=== PATIENT | male | born 1960 | race American Indian/Alaskan Native ===

== ENCOUNTER 2016-03-21 08:55 | Emergency (ER) | payer OTHER ==
[2016-03-21 09:05] VITALS: BP 145/73
--- NOTE | 2016-03-21 09:53 | Emergency Department Report ---
Chief Complaint: Abdominal Pain Stated Complaint: STOMACH FLUID/HERNIA Time Seen by Provider: 03/21/16 09:47 - HPI History of Present Illness: 55-year-old male with history of alcoholic cirrhosis presents today stating he would like to have his abdominal fluid removed. Patient denies chest pain, shortness of breath, abdominal pain, urinary symptoms. - ROS Review of Systems: Per HPI - Exam Vital Signs: Vital Signs 03/21/16 09:02 Temperature 98.2 F Pulse Rate 59 L Respiratory 20 Rate Blood Pressure 145/73 O2 Sat by Pulse 100 Oximetry Physical Exam: General: 55-year-old male in no acute distress. Well-developed, well-nourished. CV: Regular rate and rhythm. Lungs: Clear to auscultation bilaterally. Abdomen: No tenderness to palpation. Distended. No guarding or rebound tenderness. MSE screening note: Focused history and physical exam performed. Due to findings the following was ordered: ED Disposition for MSE Condition: Stable
[2016-03-21 10:27] LABS: Basophils % (Auto) 0.9 % (0.0-1.8); Eosinophils % (Auto) 4.1 % (0.0-4.3); Hematocrit 32.1 % (35.5-45.6); Hemoglobin 10.6 gm/dl (11.8-15.2); Mean Corpuscular HGB Conc 33 % (32-34); Mean Corpuscular Hemoglobin 29 pg (28-32); Mean Corpuscular Volume 89 fl (84-94); Platelet Count 132 K/mm3 (140-440); Red Blood Count 3.62 M/mm3 (3.65-5.03); Red Cell Distribution Width 15.9 % (13.2-15.2); White Blood Count 6.2 K/mm3 (4.5-11.0)
[2016-03-21 10:40] LABS: INR 1.26 (0.87-1.13)
[2016-03-21 10:41] LABS: Partial Thromboplastin Time 33.8 Sec. (24.2-36.6)
[2016-03-21 10:44] LABS: Alanine Aminotransferase 6 units/L (7-56); Albumin 3.3 g/dL (3.9-5); Albumin/Globulin Ratio 0.7 %; Alkaline Phosphatase 84 units/L (35-129); Amylase 91 units/L (27-131); Anion Gap 15 mmol/L; BUN/Creatinine Ratio 16.42; Bilirubin,Direct < 0.2 mg/dL (0-0.2); Bilirubin,Total 0.5 mg/dL (0.1-1.2); Blood Urea Nitrogen 23 mg/dL (9-20); Calcium 9.2 mg/dL (8.4-10.2); Carbon Dioxide 26 mmol/L (22-30); Chloride 100.4 mmol/L (98-107); Glucose 97 mg/dL (75-100); Lipase 42 units/L (13-60); Potassium 4.5 mmol/L (3.6-5.0); Sodium 137 mmol/L (137-145); Total Protein 8.3 g/dL (6.3-8.2)
== END 2016-03-21 20:30 | disposition left against medical advice (07) ==
LOC: ED 08:55
DX: R10.9 Unspecified abdominal pain (principal); Z53.21 Procedure and treatment not carried out due to patient leaving prior to being seen by health care provider
CPT/HCPCS: 36415; 80048; 80074; 82150; 82962; 83690; 85025; 85610; 85730

== ENCOUNTER 2016-03-22 08:53 | Emergency (ER) | payer OTHER ==
[2016-03-22 23:46] VITALS: BP 148/75
== END 2016-03-22 21:00 | disposition left against medical advice (07) ==
LOC: ED 08:53
DX: R10.9 Unspecified abdominal pain (principal); Z53.21 Procedure and treatment not carried out due to patient leaving prior to being seen by health care provider

== ENCOUNTER 2016-04-10 06:01 | Day surgery (SDC) | payer OTHER ==
--- NOTE | 2016-04-10 10:26 | Short Stay Summary ---
Short Stay Documentation Date of service: 04/10/16 - History Past Medical History: liver disease - Allergies and Medications Current Medications: Allergies No Known Allergies Allergy (Verified 06/06/14 15:35) Home Medications Medication Instructions Recorded Confirmed Last Taken Type Insulin Regular, Human [HumuLIN R] 1 dose SUB-Q ACHS #100 units 09/21/1504/10/16 06:00 Rx Nadolol [Corgard] 40 mg PO QDAY #30 tablet 09/21/15 04/10/16 04/10/16 06:00 Rx Pantoprazole [Protonix TAB] 40 mg PO QDAY #30 tablet 09/21/15 04/10/16 04/10/16 06:00 Rx Sodium Bicarbonate 650 mg PO TID #90 tablet 09/21/15 04/10/16 04/10/16 06:00 Rx Allopurinol [Zyloprim] 100 mg PO QDAY PRN 04/10/16 04/10/16 1 Week Ago History Colchicine [Colcrys] 0.6 mg PO DAILY PRN 04/10/16 04/10/16 1 Week Ago History Furosemide [Lasix TAB] 40 mg PO QDAY 04/10/16 04/10/16 04/10/16 06:00 History Spironolactone [Aldactone] 50 mg PO BID 04/10/16 04/10/16 04/10/16 05:00 History - Physical exam General appearance: mild distress Gastrointestinal: distended - Brief post op/procedure progress note Date of procedure: 04/10/16 Pre-op diagnosis: Ascites, liver disease Post-op diagnosis: same Procedure: US guided paracentesis Anesthesia: local Findings: 9 liters of yellow serous fluid removed Surgeon: NEIL COLEMAN Estimated blood loss: none Specimen disposition: discarded Condition: stable - Disposition Condition at discharge: Good Disposition: DISCHARGED TO HOME OR SELFCARE Short Stay Discharge Plan Follow up with: TIMOTHY LUGO MD [Primary Care Provider] - 7 Days
--- NOTE | 2016-04-10 10:30 | Ultrasound Report ---
ULTRASOUND-GUIDED PARACENTESIS INDICATION: Ascites, chronic liver disease. COMPARISON: 01/11/2016. FINDINGS: After explaining the risk and benefits to the patient, written informed consent obtained. Using ultrasound guidance, an appropriate skin site in the left lower quadrant marked. Skin prepped and draped in the usual sterile fashion. 1% Xylocaine used for local anesthesia. Using ultrasound guidance, a 5 Chadian Yueh catheter was placed into the fluid collection and 9000 cc of straw-colored fluid aspirated. No sample sent to laboratory. Catheter removed and hemostasis achieved. Patient tolerated the procedure well and left the radiology department in stable condition. CONCLUSION: Ultrasound guided paracentesis, as described above. IV albumin will be administered in the OPP[facility]. Dr. Joshua present for and performed the entire procedure. Thank you for the opportunity to participate in this patient's care.
[2016-04-10] MEDS ORDERED: ALBURX 25% (ALBUMIN) IV ONE ×4 (10:34→12:00)
[2016-04-10 12:51] VITALS: BP 124/59
== END 2016-04-10 12:50 | disposition home or self-care (01) ==
LOC: OPU 06:01 → EDSTATUS 07:30 → OPU 12:50
PROVIDERS: ATTEND Internal Medicine Gastroenterology
DX: R18.8 Other ascites (principal); K76.9 Liver disease, unspecified; D64.9 Anemia, unspecified; F10.21 Alcohol dependence, in remission; Z79.4 Long term (current) use of insulin
CPT/HCPCS: 49083; 82962; 96365; 96366; P9047

== ENCOUNTER 2016-09-25 07:53 | Day surgery (SDC) | payer OTHER ==
[2016-09-25 09:29] LABS: INR 1.24 (0.87-1.13)
[2016-09-25 09:30] LABS: Partial Thromboplastin Time 30.4 Sec. (24.2-36.6)
--- NOTE | 2016-09-25 10:54 | Ultrasound Report ---
Ultrasound guided paracentesis: Distended abdomen. Imaging of the abdomen demonstrated a moderate volume of ascites. An optimum approach site was identified in the right flank. The skin was marked, cleansed, and draped. A small skin misael was made through which a 5 Belarusian Yueh catheter was placed. A total of 2 L of straw-colored fluid was excessively removed. There are no apparent complications.
--- NOTE | 2016-09-25 10:58 | History and Physical Report ---
History of Present Illness Date of examination: 09/25/16 Chief complaint: distended abdomen Medications and Allergies Allergies Allergy/AdvReac Type Severity Reaction Status Date / Time No Known Allergies Allergy Verified 06/06/14 15:35 Home Medications Medication Instructions Recorded Confirmed Last Taken Type Insulin Regular, Human [HumuLIN R] 1 dose SUB-Q ACHS #100 units 09/21/1509/24/16 Rx Nadolol [Corgard] 40 mg PO QDAY #30 tablet 09/21/15 09/25/16 09/25/16 Rx Pantoprazole [Protonix TAB] 40 mg PO QDAY #30 tablet 09/21/15 09/25/16 09/24/16 Rx Sodium Bicarbonate 650 mg PO TID #90 tablet 09/21/15 09/25/16 09/25/16 Rx Allopurinol [Zyloprim] 100 mg PO QDAY PRN 04/10/16 09/25/16 09/24/16 History Colchicine [Colcrys] 0.6 mg PO DAILY PRN 04/10/16 09/25/16 09/24/16 History Furosemide [Lasix TAB] 40 mg PO QDAY 04/10/16 09/25/16 09/24/16 History Spironolactone [Aldactone] 50 mg PO BID 04/10/16 09/25/16 09/24/16 History Exam Vital Signs Temp Pulse Resp BP Pulse Ox 98.8 F 55 L 18 119/65 99 09/25/16 08:52 09/25/16 08:52 09/25/16 08:52 09/25/16 08:52 09/25/16 08:52
[2016-09-25 10:59] VITALS: BP 116/67
--- NOTE | 2016-09-25 10:59 | Procedure Note ---
Date of procedure: 09/25/16 Pre-op diagnosis: ascites Post-op diagnosis: same Procedure: paracentesis Anesthesia: local Surgeon: ULI COELLO Estimated blood loss: none Pathology: none Specimen disposition: discarded Condition: stable Disposition: observation
== END 2016-09-25 11:00 | disposition home or self-care (01) ==
LOC: CATHLABREC 07:53 → EDSTATUS 09:00 → EDBD 09:00 → CATHLABREC 11:00
PROVIDERS: ATTEND Internal Medicine Gastroenterology
DX: R18.8 Other ascites (principal); E11.9 Type 2 diabetes mellitus without complications; Z79.4 Long term (current) use of insulin
CPT/HCPCS: 36415; 49083; 85610; 85730

== ENCOUNTER 2017-04-17 08:45 | Day surgery (SDC) | payer OTHER ==
[2017-04-17 10:04] LABS: INR 1.12 (0.87-1.13)
[2017-04-17 10:06] LABS: Partial Thromboplastin Time 29.3 Sec. (24.2-36.6)
[2017-04-17 11:48] VITALS: BP 126/67
--- NOTE | 2017-04-17 11:50 | Ultrasound Report ---
ULTRASOUND PARACENTESIS History: Ascites. Description of procedure: Informed consent was obtained. Sterile technique was utilized. 1% lidocaine for skin anesthesia. Using ultrasound guidance, a 5 English centesis needle was advanced to the right lower quadrant peritoneal space. There was spontaneous return of clear yellow fluid. 1.4 L of fluid was aspirated. No complications. Impression: Successful ultrasound-guided paracentesis.
[2017-04-17] MEDS ORDERED: ALBURX 25% (ALBUMIN) IV PRN (11:58)
--- NOTE | 2017-04-17 11:58 | Short Stay Summary ---
Short Stay Documentation Date of service: 04/17/17 - History Principal diagnosis: ascites H&P: obtained from office - Allergies and Medications Current Medications: Allergies No Known Allergies Allergy (Verified 06/06/14 15:35) Home Medications Medication Instructions Recorded Confirmed Last Taken Type Nadolol [Corgard] 40 mg PO QDAY #30 tablet 09/21/15 04/17/17 04/17/17 Rx 40mg Pantoprazole [Protonix TAB] 40 mg PO QDAY #30 tablet 09/21/15 04/17/17 04/16/17 Rx 40mg Sodium Bicarbonate 650 mg PO TID #90 tablet 09/21/15 04/17/17 04/16/17 Rx 650mg Colchicine [Colcrys] 0.6 mg PO DAILY PRN 04/10/16 04/17/17 09/24/16 History Furosemide [Lasix TAB] 40 mg PO QDAY 04/10/16 04/17/17 04/16/17 History 40mg Spironolactone [Aldactone] 50 mg PO BID 04/10/16 04/17/17 04/16/17 History 50mg - Physical exam General appearance: no acute distress Gastrointestinal: distended - Brief post op/procedure progress note Date of procedure: 04/17/17 Pre-op diagnosis: ascites Post-op diagnosis: same Procedure: US paracentesis Anesthesia: local Surgeon: OLGA WALKER Estimated blood loss: none Pathology: none Specimen disposition: discarded Condition: stable - Disposition Condition at discharge: Good Disposition: DC-01 TO HOME OR SELFCARE Short Stay Discharge Plan Follow up with: TIMOTHY LUGO MD [Primary Care Provider] - 7 Days
== END 2017-04-17 12:39 | disposition home or self-care (01) ==
LOC: CATHLABREC 08:45 → EDBD 09:00 → EDSTATUS 09:00 → CATHLABREC 12:39
PROVIDERS: ATTEND Internal Medicine Gastroenterology
DX: R18.8 Other ascites (principal); Z79.899 Other long term (current) drug therapy
CPT/HCPCS: 36415; 49083; 85610; 85730

== ENCOUNTER 2019-02-03 07:48 | Day surgery (SDC) | payer MEDICARE, OTHER ==
[2019-02-03 08:41] LABS: INR 1.31 (0.87-1.13)
[2019-02-03 08:42] LABS: Partial Thromboplastin Time 32.1 Sec. (24.2-36.6)
[2019-02-03] MEDS ORDERED: ALBUMIN HUMAN 25% (25 GM/100 ML) INJ IV PRN (11:11)
--- NOTE | 2019-02-03 11:13 | Procedure Note ---
Date of procedure: 02/03/19 Pre-op diagnosis: Ascites Post-op diagnosis: same Procedure: Ultrasound-guided paracentesis Findings: See radiology report. Anesthesia: local Surgeon: NAINA PALACIOS Estimated blood loss: none Pathology: none Specimen disposition: discarded Condition: stable Disposition: same day
--- NOTE | 2019-02-03 11:44 | Ultrasound Report ---
Ultrasound-guided paracentesis HISTORY: ascites. Acute dyspnea PROCEDURE: The risks (including but not limited to bleeding, infection, and bowel injury) and benefi ts were explained to the patient and informed consent was obtained. A time out procedure was perform ed. Ultrasound was used to evaluate the abdomen and locate the largest ascites fluid pocket. Once the sk in was marked, the procedure site was prepped and draped in the usual sterile fashion and lidocaine w as used for local anesthesia. A skin misael was made and a 6-Syrian paracentesis catheter was placed. The patient was monitored closely throughout the procedure, and a total of 4800 mL of straw-colored fluid was aspirated. The patient tolerated the procedure well with no complications. IMPRESSION: Successful paracentesis as above with a total of 4800 mL of straw-colored fluid aspirated . Signer Name: Roberto Carlos Finley MD Signed: 02/03/2019 11:39 AM Workstation Name: [id number]
[2019-02-03 12:18] VITALS: BP 102/53
== END 2019-02-03 12:29 | disposition home or self-care (01) ==
LOC: CATHLABREC 07:48 → EDSTATUS 09:00 → CATHLABREC 12:29
PROVIDERS: ATTEND Internal Medicine Gastroenterology
DX: K70.31 Alcoholic cirrhosis of liver with ascites (principal); D64.9 Anemia, unspecified; I10 Essential (primary) hypertension; E66.9 Obesity, unspecified; M19.90 Unspecified osteoarthritis, unspecified site; E11.9 Type 2 diabetes mellitus without complications; Z72.89 Other problems related to lifestyle; Z98.890 Other specified postprocedural states; Z79.899 Other long term (current) drug therapy; Z68.37 Body mass index [BMI] 37.0-37.9, adult; Z83.49 Family history of other endocrine, nutritional and metabolic diseases
CPT/HCPCS: 36415; 49083; 85610; 85730

== ENCOUNTER 2020-06-09 07:44 | Outpatient (CLI) | payer MEDICARE, OTHER ==
[2020-06-09 09:01] LABS: INR 1.36 (0.87-1.13)
[2020-06-09] MEDS ORDERED: ALBUMIN HUMAN 25% (25 GM/100 ML) INJ IV NR (10:30)
[2020-06-09 11:59] VITALS: BP 111/58
--- NOTE | 2020-06-09 14:12 | Ultrasound Report ---
ULTRASOUND-GUIDED PARACENTESIS INDICATION / CLINICAL INFORMATION: R18.8 K74.68. Ascites PROCEDURE: The risks (including but not limited to bleeding, infection, and bowel injury) and benefits were expl ained to the patient and signed, informed consent was obtained. A time out procedure was performed. Ultrasound was used to evaluate the abdomen and locate the largest ascites fluid pocket. Once the sk in was marked, the procedure site was prepped and draped in the usual sterile fashion and lidocaine w as used for local anesthesia. A skin misael was made and a 6-Czech paracentesis catheter was placed. The patient was monitored closely throughout the procedure, and a total of 10 mL of clear yellow fl uid was aspirated. No labs were ordered on the fluid. No sample submitted to lab. The patient tolerated the procedure well with no complications. IMPRESSION: 1. Successful ultrasound-guided paracentesis. Patient was given albumin after procedure. Signer Name: Reynaldo Cano MD Signed: 06/09/2020 12:13 PM Workstation Name: [id number]
== END 2020-06-09 11:30 | disposition home or self-care (01) ==
LOC: CATHLABREC 07:44
PROVIDERS: ATTEND Internal Medicine Gastroenterology
DX: K70.31 Alcoholic cirrhosis of liver with ascites (principal); I10 Essential (primary) hypertension; E66.9 Obesity, unspecified; M19.90 Unspecified osteoarthritis, unspecified site; E11.9 Type 2 diabetes mellitus without complications; D64.9 Anemia, unspecified; Z72.89 Other problems related to lifestyle; Z79.899 Other long term (current) drug therapy; Z68.31 Body mass index [BMI] 31.0-31.9, adult; Z82.49 Family history of ischemic heart disease and other diseases of the circulatory system
CPT/HCPCS: 36415; 49083; 85610; P9047

== ENCOUNTER 2020-06-17 09:58 | Inpatient (IN) | payer MEDICARE, OTHER ==
--- NOTE | 2020-06-17 10:34 | Emergency Department Report ---
Blank Doc - Documentation Documentation: 57-year-old male that presents with generalized weakness, bilateral leg swelli ng, abdominal swelling times several days. 1- This initial assessment/diagnostic orders/clinical plan/ treatment(s) is/are subject to change based on pt's health status, clinical progression and re- assessment by fellow clinical providers in the ED. Further treatment and workup at subsequent clinical provers discretion. Patient/guardians urged not to elope from ED as their condition may be serious if not clinically assessed and managed. 2-labs 3-EKG
--- NOTE | 2020-06-17 11:28 | XRay Report ---
CHEST 2 VIEWS INDICATION: Chest Pain. COMPARISON: None FINDINGS: Support devices: None. Heart: Within normal limits. Lungs/pleura: No acute air space or interstitial disease. No pneumothorax. Additional findings: None. IMPRESSION: No acute findings. Signer Name: Joe Shannon Jr, MD Signed: 06/17/2020 11:24 AM Workstation Name: [id number]
[2020-06-17 12:14] LABS: INR 1.33 (0.87-1.13)
[2020-06-17 12:15] LABS: Partial Thromboplastin Time 32.2 Sec. (24.2-36.6)
[2020-06-17 12:41] LABS: Basophils # (Auto) 0.1 K/mm3 (0.0-0.1); Basophils % (Auto) 0.7 % (0.0-1.8); Eosinophils # (Auto) 0.2 K/mm3 (0.0-0.4); Eosinophils % (Auto) 1.9 % (0.0-4.3); Hematocrit 30.2 % (35.5-45.6); Hemoglobin 10.5 gm/dl (11.8-15.2); Lymphocytes # (Auto) 1.2 K/mm3 (1.2-5.4); Lymphocytes % (Auto) 12.7 % (13.4-35.0); Mean Corpuscular HGB Conc 35 % (32-34); Mean Corpuscular Volume 116 fl (84-94); Monocytes # (Auto) 0.8 K/mm3 (0.0-0.8); Monocytes % (Auto) 8.5 % (0.0-7.3); Platelet Count 155 K/mm3 (140-440); Red Cell Distribution Width 14.1 % (13.2-15.2)
[2020-06-17 12:49] LABS: Albumin 2.4 g/dL (3.9-5); Calcium 8.7 mg/dL (8.4-10.2)
--- NOTE | 2020-06-17 14:27 | Cat Scan Report ---
CT HEAD WITHOUT CONTRAST INDICATION / CLINICAL INFORMATION: multiple falls. TECHNIQUE: Axial imaging performed from the skull apex through the skull base without the use of cont rast. Sagittal and coronal reformatted images. All CT scans at this location are performed using CT dose reduction for ALARA by means of automated exposure control. COMPARISON: None available. FINDINGS: CEREBRAL PARENCHYMA: No significant abnormality. No acute territorial infarct. HEMORRHAGE: None. EXTRA-AXIAL SPACES: Normal in size and morphology for the patient's age. VENTRICULAR SYSTEM: Normal in size and morphology for the patient's age. MIDLINE SHIFT OR HERNIATION: None. CEREBELLUM / BRAINSTEM: No significant abnormality. CALVARIUM: No significant abnormality. ORBITS: Normal as visualized. PARANASAL SINUSES / MASTOID AIR CELLS: Normal as visualized. SOFT TISSUES of HEAD: No significant abnormality. ADDITIONAL FINDINGS: None. IMPRESSION: No acute intracranial abnormality. Signer Name: Joe Shannon Jr, MD Signed: 06/17/2020 2:22 PM Workstation Name: [id number]
--- NOTE | 2020-06-17 14:35 | Emergency Department Report ---
- General Chief complaint: Weakness Stated complaint: GENERAL WEAKNESS Time Seen by Provider: 06/17/20 10:26 Source: patient, EMS Mode of arrival: Wheelchair Limitations: Physical Limitation - History of Present Illness Initial comments: 59-year-old male, history of liver cirrhosis, chronic kidney disease, presents to ED with generalized weakness and multiple falls. Patient states over the last 1 week he has fallen 3 times. States he feels like his legs just give out and then he falls. Patient states that since his last fall 3 days ago, he has not been able to get out of bed and walk because he feels so weak. States he is unable to walk to the bathroom. States his has been giving him a urinal to use and puts a diaper in the bed when he has to have a bowel movement. Patient denies any headache or back pain. He denies any fever. Patient states he is currently having some diarrhea, denies any abdominal pain, nausea, or vomiting. Patient states prior to 1 week ago, he had some baseline weakness present, however, it is worse now. Patient states he has not yet received his Covid vaccine. MD Complaint: generalized weakness -: week(s) (1) Severity: moderate Consistency: constant Improves with: none Worsens with: none Associated Symptoms: denies: chest pain, fever/chills, nausea/vomiting, shortness of breath, syncope - Related Data Home Medications Medication Instructions Recorded Confirmed Last Taken Furosemide [Lasix TAB] 40 mg PO QDAY 04/10/16 06/09/20 06/08/20 Spironolactone [Aldactone] 50 mg PO BID 04/10/16 06/09/20 06/08/20 allopurinoL [Zyloprim] 100 mg PO DAILY PRN 02/03/19 06/09/20 01/08/19 100 mg Iron Fum,Ps/Folic/Bcomp,C No.9 1 each PO DAILY 06/09/20 06/09/20 06/08/20 [Integra Plus Capsule] Previous Rx's Medication Instructions Recorded Last Taken Type Pantoprazole [Protonix TAB] 40 mg PO QDAY #30 tablet 09/21/15 06/08/20 Rx Sodium Bicarbonate 650 mg PO TID #90 tablet 09/21/15 06/08/20 Rx nadoloL [Corgard] 40 mg PO QDAY #30 tablet 09/21/15 06/08/20 Rx Allergies Allergy/AdvReac Type Severity Reaction Status Date / Time No Known Allergies Allergy Verified 06/06/14 15:35 ED Review of Systems ROS: Stated complaint: GENERAL WEAKNESS Other details as noted in HPI Comment: All other systems reviewed and negative Constitutional: denies: fever Respiratory: denies: shortness of breath Cardiovascular: denies: chest pain Gastrointestinal: diarrhea. denies: abdominal pain, nausea, vomiting Musculoskeletal: denies: back pain Neurological: weakness. denies: headache, numbness, paresthesias ED Past Medical Hx - Past Medical History Previous Medical History?: Yes Hx Hypertension: Yes () Hx Diabetes: Yes Hx Liver Disease: Yes (Cirrhosis) Hx Renal Disease: Yes (insufficiency, chronic) Hx Arthritis: Yes Additional medical history: elevated liver function - Surgical History Past Surgical History?: Yes Additional Surgical History: Left hand surgery - Social History Smoking Status: Never Smoker - Medications Home Medications: Home Medications Medication Instructions Recorded Confirmed Last Taken Type Pantoprazole [Protonix TAB] 40 mg PO QDAY #30 tablet 09/21/15 06/09/20 06/08/20 Rx Sodium Bicarbonate 650 mg PO TID #90 tablet 09/21/15 06/09/20 06/08/20 Rx nadoloL [Corgard] 40 mg PO QDAY #30 tablet 09/21/15 06/09/20 06/08/20 Rx Furosemide [Lasix TAB] 40 mg PO QDAY 04/10/16 06/09/20 06/08/20 History Spironolactone [Aldactone] 50 mg PO BID 04/10/16 06/09/20 06/08/20 History allopurinoL [Zyloprim] 100 mg PO DAILY PRN 02/03/19 06/09/20 01/08/19 History 100 mg Iron Fum,Ps/Folic/Bcomp,C No.9 1 each PO DAILY 06/09/20 06/09/20 06/08/20 History [Integra Plus Capsule] ED Physical Exam - General Limitations: Physical Limitation General appearance: alert, in no apparent distress - Head Head exam: Present: atraumatic, normocephalic - Eye Eye exam: Present: normal appearance, EOMI - ENT ENT exam: Present: mucous membranes moist - Neck Neck exam: Present: normal inspection - Respiratory Respiratory exam: Present: normal lung sounds bilaterally. Absent: respiratory distress - Cardiovascular Cardiovascular Exam: Present: normal rhythm, bradycardia - GI/Abdominal GI/Abdominal exam: Present: soft, distended. Absent: tenderness - Back Exam Back exam: Absent: tenderness, vertebral tenderness - Neurological Exam Neurological exam: Present: alert, oriented X3, CN II-XII intact, motor sensory deficit (strength 3/5 bilateral lower extremities, sensation intact) - Psychiatric Psychiatric exam: Present: normal affect, normal mood - Skin Skin exam: Present: warm, dry, intact, normal color ED Course Vital Signs 06/17/20 06/17/20 10:14 13:45 Temperature 98.6 F Pulse Rate 57 L 59 L Respiratory 20 16 Rate Blood Pressure 114/69 111/65 [Left] O2 Sat by Pulse 100 99 Oximetry ED Medical Decision Making - Lab Data Result diagrams: 06/17/20 11:05 06/17/20 11:05 - Radiology Data Radiology results: report reviewed, image reviewed - Medical Decision Making 59-year-old male presents to ED with multiple falls over the last week, now with generalized weakness and unable to get out of bed for the last [address] head shows no acute findings. Labs are unremarkable except for some acute renal insufficiency. Patient reports that he has been unable to ambulate at home. Patient will be admitted to hospitalist, Dr. Mayer, for further management. - Differential Diagnosis Intracranial injury, CVA, dehydration Critical care attestation.: If time is entered above; I have spent that time in minutes in the direct care of this critically ill patient, excluding procedure time. ED Disposition Clinical Impression: Multiple falls, Acute on chronic renal insufficiency, Weakness Disposition: OP ADMIT IP TO THIS HOSP Is pt being admited?: Yes Condition: Stable Time of Disposition: 15:01
[2020-06-17] MEDS ORDERED: ONDANSETRON 4 MG/2 ML INJ IV PRN (15:20)
[2020-06-17] MEDS ORDERED: ALBUTEROL 2.5 MG/3 ML NEBU IH PRN (15:20)
--- NOTE | 2020-06-17 19:28 | History and Physical Report ---
History of Present Illness Date of admission: 06/17/20 15:20 Chief complaint: I feel weak and I cannot walk anymore History of present illness: 59 YO Male with liver cirrhosis complicated by Ascites, chronic kidney disease presents to ED for evaluation. Patient reports "I feel weak and I keep falling". Patient states that he has experienced progressive muscular weakness over the past 3 weeks with worsening symptoms over the same timeframe. Patient knowledges increased bedbound status resulting in worsening weakness. Patient reports that he is no longer able to walk independently. Patient reports multiple falls over the past 1 week. EMS was notified and upon arrival the patient was found to be in distress and subsequently transported to [facility] for further care and evaluation of the aforementioned symptoms. The patient was seen and evaluated in the emergency department. All lab and imaging studies reviewed. The patient was found to have debility complicated by multiple falls. The patient was also found to have acute kidney injury. Patient placed in observation status and admitted to medical floor. Patient denies fever, chills, chest pain, palpitation, productive cough, skin rash, recent ill contacts, or known exposure to COVID-19. Prior admission on 09/17/2015 reviewed. All medication listed at time of admission has been reconciled. Advanced care planning conducted in ED. Past History Past Medical History: liver disease, renal failure, other (See HPI) Past Surgical History: Other (Left hand surgery) Social history: . denies: smoking, prescription drug abuse Family history: hypertension Medications and Allergies Allergies Allergy/AdvReac Type Severity Reaction Status Date / Time No Known Allergies Allergy Verified 06/06/14 15:35 Home Medications Medication Instructions Recorded Confirmed Last Taken Type Pantoprazole [Protonix TAB] 40 mg PO QDAY #30 tablet 09/21/15 06/09/20 06/08/20 Rx Sodium Bicarbonate 650 mg PO TID #90 tablet 09/21/15 06/09/20 06/08/20 Rx nadoloL [Corgard] 40 mg PO QDAY #30 tablet 09/21/15 06/09/20 06/08/20 Rx Furosemide [Lasix TAB] 40 mg PO QDAY 04/10/16 06/09/20 06/08/20 History Spironolactone [Aldactone] 50 mg PO BID 04/10/16 06/09/20 06/08/20 History allopurinoL [Zyloprim] 100 mg PO DAILY PRN 02/03/19 06/09/20 01/08/19 History 100 mg Iron Fum,Ps/Folic/Bcomp,C No.9 1 each PO DAILY 06/09/20 06/09/20 06/08/20 History [Integra Plus Capsule] Active Meds: Active Medications Acetaminophen (Acetaminophen 325 Mg Tab) 650 mg PO Q4H PRN PRN Reason: Pain MILD(1-3)/Fever >100.5/SHORT Albuterol (Albuterol 2.5 Mg/3 Ml Nebu) 2.5 mg IH Q3HRT PRN PRN Reason: Shortness Of Breath Allopurinol (Allopurinol 100 Mg Tab) 100 mg PO DAILY ONELIA Furosemide (Furosemide 40 Mg Tab) 40 mg PO DAILY@0600 [facility] Multivitamins/Iron (Fe Fumarate/Fa/Mv, Min Comb#15 Cap (Hemocyte Plus)) 1 each PO QDAY [facility] Nadolol (Nadolol 20 Mg Tab) 40 mg PO QDAY [facility] Ondansetron HCl (Ondansetron 4 Mg/2 Ml Inj) 4 mg IV Q8H PRN PRN Reason: Nausea And Vomiting Pantoprazole Sodium (Pantoprazole 40 Mg Tab) 40 mg PO QDAC [facility] Sodium Bicarbonate (Sodium Bicarbonate 650 Mg Tab) 650 mg PO TID [facility] Sodium Chloride (Sodium Chloride 0.9% 10 Ml Flush Syringe) 10 ml IV BID [facility] Sodium Chloride (Sodium Chloride 0.9% 10 Ml Flush Syringe) 10 ml IV PRN PRN PRN Reason: LINE FLUSH Spironolactone (Spironolactone 25 Mg Tab) 50 mg PO BID [facility] Review of Systems Constitutional: weakness, no weight loss, no weight gain, no fever, no chills Ears, nose, mouth and throat: no ear pain, no ear discharge, no tinnitis, no decreased hearing, no nose pain, no nasal congestion, no sinus pain Cardiovascular: no chest pain, no rapid/irregular heart beat, no syncope, no lightheadedness Respiratory: no cough, no cough with sputum, no excessive sputum, no hemoptysis, no shortness of breath Gastrointestinal: no abdominal pain, no vomiting, no diarrhea, no change in bowel habits, no hematemesis Genitourinary Male: no hematuria, no flank pain, no discharge, no urinary frequency, no urinary hesitancy Rectal: no pain, no incontinence, no bleeding Musculoskeletal: no neck stiffness, no neck pain, no arm numbness/tingling, no low back pain, no shooting leg pain Integumentary: no rash, no pruritis, no redness, no sores, no wounds Neurological: no head injury, no transient paralysis, no paralysis, no weakness, no parathesias, no tingling Psychiatric: no anxiety, no memory loss, no change in sleep habits, no sleep disturbances, no hypersomnia, no change in libido, no disorientation Endocrine: no cold intolerance, no heat intolerance, no excessive thirst, no excessive sweating Hematologic/Lymphatic: no easy bruising, no easy bleeding Allergic/Immunologic: no urticaria Exam - Constitutional Vitals: Temp Pulse Resp BP Pulse Ox 98.6 F 59 L 16 111/65 99 06/17/20 10:14 06/17/20 13:45 06/17/20 13:45 06/17/20 13:45 06/17/20 13:45 General appearance: Present: mild distress - EENT Eyes: Present: PERRL ENT: hearing intact, clear oral mucosa - Neck Neck: Present: supple, normal ROM - Respiratory Respiratory effort: normal Respiratory: bilateral: CTA - Cardiovascular Heart Sounds: Present: S1 & S2. Absent: rub, click - Extremities Extremities: pulses symmetrical, No edema Peripheral Pulses: within normal limits - Abdominal General gastrointestinal: Present: soft, non-tender, distended, normal bowel sounds Male genitourinary: Present: normal - Integumentary Integumentary: Present: clear, warm, dry - Musculoskeletal Musculoskeletal: generalized weakness - Psychiatric Psychiatric: appropriate mood/affect, intact judgment & insight - Neurologic Neurologic: CNII-XII intact, no focal deficits, moves all extremities, no gait normal HEART Score - HEART Score Troponin: Troponin T 0.017 ng/mL (0.00-0.029) 06/17/20 13:02 Results - Labs CBC & Chem 7: 06/17/20 11:05 06/17/20 11:05 Labs: Abnormal lab results 06/17/20 06/17/20 06/17/20 Range/Units 11:05 11:05 11:05 RBC 2.60 L (3.65-5.03) M/mm3 Hgb 10.5 L (11.8-15.2) gm/dl Hct 30.2 L (35.5-45.6) % MCV 116 H (84-94) fl MCH 40 H (28-32) pg MCHC 35 H (32-34) % Lymph % (Auto) 12.7 L (13.4-35.0) % [place] % (Auto) 8.5 H (0.0-7.3) % Seg Neutrophils % 76.2 H (40.0-70.0) % PT 16.5 H (12.2-14.9) Sec. INR 1.33 H (0.87-1.13) Sodium 134 L (137-145) mmol/L Chloride 97.8 L (98-107) mmol/L BUN 26 H (9-20) mg/dL Creatinine 1.8 H (0.8-1.3) mg/dL Glucose 115 H (75-100) mg/dL Magnesium (1.7-2.3) mg/dL Total Bilirubin 2.80 H (0.1-1.2) mg/dL Albumin 2.4 L (3.9-5) g/dL 06/17/20 Range/Units 11:05 RBC (3.65-5.03) M/mm3 Hgb (11.8-15.2) gm/dl Hct (35.5-45.6) % MCV (84-94) fl MCH (28-32) pg MCHC (32-34) % Lymph % (Auto) (13.4-35.0) % [place] % (Auto) (0.0-7.3) % Seg Neutrophils % (40.0-70.0) % PT (12.2-14.9) Sec. INR (0.87-1.13) Sodium (137-145) mmol/L Chloride (98-107) mmol/L BUN (9-20) mg/dL Creatinine (0.8-1.3) mg/dL Glucose (75-100) mg/dL Magnesium 1.50 L (1.7-2.3) mg/dL Total Bilirubin (0.1-1.2) mg/dL Albumin (3.9-5) g/dL Assessment and Plan - Patient Problems (1) Acute on chronic renal insufficiency Current Visit: Yes Status: Acute Plan to address problem: Supportive care, continue medical management, encourage free water intake, monitor urine output every shift, (2) Debility Current Visit: Yes Status: Acute Plan to address problem: Physical therapy consulted, supportive care. (3) Chronic liver disease Current Visit: Yes Status: Acute Plan to address problem: Supportive care, continue medical management. (4) Ascites Current Visit: Yes Status: Acute Qualifiers: Ascites type: other type Qualified Code(s): R18.8 - Other ascites Plan to address problem: Supportive care, outpatient therapeutic paracentesis. (5) DVT prophylaxis Current Visit: Yes Status: Acute Plan to address problem: SCD to bilateral lower extremities while in bed. (6) Advance care planning Current Visit: Yes Status: Acute Plan to address problem: Disease education conducted, care plan discussed, diagnoses discussed, prognosis discussed, care plan discussed, patient knowledges understanding agree with care plan, +30 minutes. Patient care plan discussed with patient daughter. Patient daughter acknowledges understanding and agreement with care plan.
[2020-06-17] MEDS: SPIRONOLACTONE 25 MG TAB PO SCH (22:59)
[2020-06-17] MEDS: SODIUM BICARBONATE 650 MG TAB PO SCH (22:59)
[2020-06-18] MEDS: FUROSEMIDE 40 MG TAB PO SCH (05:27)
[2020-06-18 07:03] LABS: Bilirubin,Urine NEG (Negative); Blood,Urine NEG (Negative); Color,Urine Amber (Yellow); Mucus,Urine FEW /HPF; Protein,Urine <15 mg/dL mg/dL (Negative)
[2020-06-18] MEDS: allopurinoL 100 MG TAB PO SCH (09:28)
[2020-06-18] MEDS: PANTOPRAZOLE 40 MG TAB PO SCH (09:28)
[2020-06-18] MEDS: SODIUM BICARBONATE 650 MG TAB PO SCH ×3 (09:28→21:26)
[2020-06-18] MEDS: SPIRONOLACTONE 25 MG TAB PO SCH ×2 (09:32→23:00)
[2020-06-18] MEDS: NADOLOL 20 MG TAB PO SCH (09:33)
[2020-06-18] MEDS: FE FUMARATE/FA/MV, MIN COMB#15 CAP (HEMOCYTE PLUS) PO SCH (09:54)
[2020-06-18] MEDS ORDERED: NON-FORMULARY EACH (Iron Fum,Ps/Folic/Bcomp,C No.9 [Integra Plus Capsule] 1 EACH Capsule) PO SCH (10:00)
[2020-06-18] MEDS ORDERED: NADOLOL 40 MG PO SCH (10:00)
--- NOTE | 2020-06-18 12:35 | Progress Note ---
History Interval history: Acute on chronic renal insufficiency Supportive care, continue medical management, encourage free water intake, monitor urine output every shift, Debility Physical therapy consulted, supportive care. Chronic liver disease Supportive care, continue medical management. Ascites Supportive care, outpatient therapeutic paracentesis. DVT prophylaxis SCD to bilateral lower extremities while in bed. 06/18. I suspect pt has more chric renal dz and is likely at baseline. Creatinine was 1.4 in 2017. Check renal US. PT eval. Anticipate d/c based on results Hospitalist Physical - Constitutional Vitals: Temp Pulse Resp BP Pulse Ox 99.1 F 61 20 100/51 99 06/18/20 06:23 06/18/20 09:33 06/18/20 06:23 06/18/20 09:33 06/18/20 08:59 General appearance: Present: mild distress HEART Score - HEART Score Troponin: Troponin T 0.017 ng/mL (0.00-0.029) 06/17/20 13:02 Results - Labs CBC & Chem 7: 06/17/20 11:05 06/18/20 04:41 Labs: Laboratory Last Values WBC 9.6 K/mm3 (4.5-11.0) 06/17/20 11:05 RBC 2.60 M/mm3 (3.65-5.03) L 06/17/20 11:05 Hgb 10.5 gm/dl (11.8-15.2) L 06/17/20 11:05 Hct 30.2 % (35.5-45.6) L 06/17/20 11:05 MCV 116 fl (84-94) H 06/17/20 11:05 MCH 40 pg (28-32) H 06/17/20 11:05 MCHC 35 % (32-34) H 06/17/20 11:05 RDW 14.1 % (13.2-15.2) 06/17/20 11:05 Plt Count 155 K/mm3 (140-440) 06/17/20 11:05 Lymph % (Auto) 12.7 % (13.4-35.0) L 06/17/20 11:05 [place] % (Auto) 8.5 % (0.0-7.3) H 06/17/20 11:05 Eos % (Auto) 1.9 % (0.0-4.3) 06/17/20 11:05 Baso % (Auto) 0.7 % (0.0-1.8) 06/17/20 11:05 Lymph # (Auto) 1.2 K/mm3 (1.2-5.4) 06/17/20 11:05 [place] # (Auto) 0.8 K/mm3 (0.0-0.8) 06/17/20 11:05 Eos # (Auto) 0.2 K/mm3 (0.0-0.4) 06/17/20 11:05 Baso # (Auto) 0.1 K/mm3 (0.0-0.1) 06/17/20 11:05 Seg Neutrophils % 76.2 % (40.0-70.0) H 06/17/20 11:05 Seg Neutrophils # 7.3 K/mm3 (1.8-7.7) 06/17/20 11:05 PT 16.5 Sec. (12.2-14.9) H 06/17/20 11:05 INR 1.33 (0.87-1.13) H 06/17/20 11:05 APTT 32.2 Sec. (24.2-36.6) 06/17/20 11:05 Sodium 134 mmol/L (137-145) L 06/18/20 04:41 Potassium 3.9 mmol/L (3.6-5.0) 06/18/20 04:41 Chloride 98.8 mmol/L (98-107) 06/18/20 04:41 Carbon Dioxide 27 mmol/L (22-30) 06/18/20 04:41 Anion Gap 12 mmol/L 06/18/20 04:41 BUN 27 mg/dL (9-20) H 06/18/20 04:41 Creatinine 2.0 mg/dL (0.8-1.3) H 06/18/20 04:41 Estimated GFR 41 ml/min 06/18/20 04:41 BUN/Creatinine Ratio 14 % 06/18/20 04:41 Glucose 88 mg/dL (75-100) 06/18/20 04:41 POC Glucose 93 mg/dL (70-105) 06/17/20 22:41 Calcium 8.0 mg/dL (8.4-10.2) L 06/18/20 04:41 Magnesium 1.50 mg/dL (1.7-2.3) L 06/17/20 11:05 Total Bilirubin 2.80 mg/dL (0.1-1.2) H 06/17/20 11:05 AST 36 units/L (5-40) 06/17/20 11:05 ALT 11 units/L (7-56) 06/17/20 11:05 Alkaline Phosphatase 107 units/L (35-129) 06/17/20 11:05 Troponin T 0.017 ng/mL (0.00-0.029) 06/17/20 13:02 NT-Pro-B Natriuret Pep 635.9 pg/mL (0-900) 06/17/20 11:05 Total Protein 8.0 g/dL (6.3-8.2) 06/17/20 11:05 Albumin 2.4 g/dL (3.9-5) L 06/17/20 11:05 Albumin/Globulin Ratio 0.4 % 06/17/20 11:05 Urine Color Sravanthi (Yellow) 06/18/20 Unknown Urine Turbidity Clear (Clear) 06/18/20 Unknown Urine pH 5.0 (5.0-7.0) 06/18/20 Unknown Ur Specific [place] 1.016 (1.003-1.030) 06/18/20 Unknown Urine Protein <15 mg/dl mg/dL (Negative) 06/18/20 Unknown Urine Glucose (UA) Neg mg/dL (Negative) 06/18/20 Unknown Urine Ketones Neg mg/dL (Negative) 06/18/20 Unknown Urine Blood Neg (Negative) 06/18/20 Unknown Urine Nitrite Neg (Negative) 06/18/20 Unknown Urine Bilirubin Neg (Negative) 06/18/20 Unknown Urine Urobilinogen 2.0 mg/dL (<2.0) 06/18/20 Unknown Ur Leukocyte Esterase Neg (Negative) 06/18/20 Unknown Urine WBC (Auto) 7.0 /HPF (0.0-6.0) H 06/18/20 Unknown Urine RBC (Auto) 1.0 /HPF (0.0-6.0) 06/18/20 Unknown U Epithel Cells (Auto) 1.0 /HPF (0-13.0) 06/18/20 Unknown Urine Mucus Few /HPF 06/18/20 Unknown Little/IV: Voiding Method Urinal Active Medications - Current Medications Current Medications: Generic Name Dose Route Start Last Admin Trade Name Freq PRN Reason Stop Dose Admin Acetaminophen 650 mg 06/17/20 15:20 Acetaminophen 325 Mg Tab PO Q4H PRN Pain MILD(1-3)/Fever >100.5/SHORT Albuterol 2.5 mg 06/17/20 15:20 Albuterol 2.5 Mg/3 Ml Nebu IH Q3HRT PRN Shortness Of Breath Allopurinol 100 mg 06/18/20 10:00 06/18/20 09:28 Allopurinol 100 Mg Tab PO 100 mg DAILY ONELIA Administration Furosemide 40 mg 06/18/20 06:00 06/18/20 05:27 Furosemide 40 Mg Tab PO 40 mg DAILY@0600 ONELIA Administration Multivitamins/Iron 1 each 06/18/20 10:00 06/18/20 09:54 Fe Fumarate/Fa/Mv, Min Comb#15 Cap (Hemocyte Plus) PO 1 each QDAY ONELIA Administration Nadolol 40 mg 06/18/20 10:00 06/18/20 09:33 Nadolol 20 Mg Tab PO Not Given QDAY ONELIA Ondansetron HCl 4 mg 06/17/20 15:20 Ondansetron 4 Mg/2 Ml Inj IV Q8H PRN Nausea And Vomiting Pantoprazole Sodium 40 mg 06/18/20 07:30 06/18/20 09:28 Pantoprazole 40 Mg Tab PO 40 mg QDAC ONELIA Administration Sodium Bicarbonate 650 mg 06/17/20 20:00 06/18/20 09:28 Sodium Bicarbonate 650 Mg Tab PO 650 mg TID ONELIA Administration Sodium Chloride 10 ml 06/17/20 22:00 06/18/20 09:28 Sodium Chloride 0.9% 10 Ml Flush Syringe IV 10 ml BID ONELIA Administration Sodium Chloride 10 ml 06/17/20 15:20 Sodium Chloride 0.9% 10 Ml Flush Syringe IV PRN PRN LINE FLUSH Spironolactone 50 mg 06/17/20 22:00 06/18/20 09:32 Spironolactone 25 Mg Tab PO 50 mg BID ONELIA Administration
--- NOTE | 2020-06-18 13:52 | Electrocardiograph Report ---
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
--- NOTE | 2020-06-18 13:58 | Electrocardiograph Report ---
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
[2020-06-19] MEDS: FUROSEMIDE 40 MG TAB PO SCH (06:15)
--- NOTE | 2020-06-19 09:07 | Progress Note ---
History Interval history: Acute on chronic renal insufficiency Supportive care, continue medical management, encourage free water intake, monitor urine output every shift, Debility Physical therapy consulted, supportive care. Chronic liver disease Supportive care, continue medical management. Ascites Supportive care, outpatient therapeutic paracentesis. DVT prophylaxis SCD to bilateral lower extremities while in bed. 06/18. I suspect pt has more chric renal dz and is likely at baseline. Creatinine was 1.4 in 2017. Check renal US. PT eval. Anticipate d/c based on results 06/19. Physical therapy evaluation recommends subacute rehab. Await case management for placement. Follow-up renal ultrasound Hospitalist Physical - Constitutional Vitals: Temp Pulse Resp BP Pulse Ox 98.6 F 75 15 95/58 97 06/19/20 03:07 06/19/20 03:07 06/19/20 03:07 06/19/20 03:07 06/19/20 03:07 General appearance: Present: mild distress HEART Score - HEART Score Troponin: Troponin T 0.017 ng/mL (0.00-0.029) 06/17/20 13:02 Results - Labs CBC & Chem 7: 06/17/20 11:05 06/18/20 04:41 Labs: Laboratory Last Values WBC 9.6 K/mm3 (4.5-11.0) 06/17/20 11:05 RBC 2.60 M/mm3 (3.65-5.03) L 06/17/20 11:05 Hgb 10.5 gm/dl (11.8-15.2) L 06/17/20 11:05 Hct 30.2 % (35.5-45.6) L 06/17/20 11:05 MCV 116 fl (84-94) H 06/17/20 11:05 MCH 40 pg (28-32) H 06/17/20 11:05 MCHC 35 % (32-34) H 06/17/20 11:05 RDW 14.1 % (13.2-15.2) 06/17/20 11:05 Plt Count 155 K/mm3 (140-440) 06/17/20 11:05 Lymph % (Auto) 12.7 % (13.4-35.0) L 06/17/20 11:05 [place] % (Auto) 8.5 % (0.0-7.3) H 06/17/20 11:05 Eos % (Auto) 1.9 % (0.0-4.3) 06/17/20 11:05 Baso % (Auto) 0.7 % (0.0-1.8) 06/17/20 11:05 Lymph # (Auto) 1.2 K/mm3 (1.2-5.4) 06/17/20 11:05 [place] # (Auto) 0.8 K/mm3 (0.0-0.8) 06/17/20 11:05 Eos # (Auto) 0.2 K/mm3 (0.0-0.4) 06/17/20 11:05 Baso # (Auto) 0.1 K/mm3 (0.0-0.1) 06/17/20 11:05 Seg Neutrophils % 76.2 % (40.0-70.0) H 06/17/20 11:05 Seg Neutrophils # 7.3 K/mm3 (1.8-7.7) 06/17/20 11:05 PT 16.5 Sec. (12.2-14.9) H 06/17/20 11:05 INR 1.33 (0.87-1.13) H 06/17/20 11:05 APTT 32.2 Sec. (24.2-36.6) 06/17/20 11:05 Sodium 134 mmol/L (137-145) L 06/18/20 04:41 Potassium 3.9 mmol/L (3.6-5.0) 06/18/20 04:41 Chloride 98.8 mmol/L (98-107) 06/18/20 04:41 Carbon Dioxide 27 mmol/L (22-30) 06/18/20 04:41 Anion Gap 12 mmol/L 06/18/20 04:41 BUN 27 mg/dL (9-20) H 06/18/20 04:41 Creatinine 2.0 mg/dL (0.8-1.3) H 06/18/20 04:41 Estimated GFR 41 ml/min 06/18/20 04:41 BUN/Creatinine Ratio 14 % 06/18/20 04:41 Glucose 88 mg/dL (75-100) 06/18/20 04:41 POC Glucose 93 mg/dL (70-105) 06/17/20 22:41 Calcium 8.0 mg/dL (8.4-10.2) L 06/18/20 04:41 Magnesium 1.50 mg/dL (1.7-2.3) L 06/17/20 11:05 Total Bilirubin 2.80 mg/dL (0.1-1.2) H 06/17/20 11:05 AST 36 units/L (5-40) 06/17/20 11:05 ALT 11 units/L (7-56) 06/17/20 11:05 Alkaline Phosphatase 107 units/L (35-129) 06/17/20 11:05 Troponin T 0.017 ng/mL (0.00-0.029) 06/17/20 13:02 NT-Pro-B Natriuret Pep 635.9 pg/mL (0-900) 06/17/20 11:05 Total Protein 8.0 g/dL (6.3-8.2) 06/17/20 11:05 Albumin 2.4 g/dL (3.9-5) L 06/17/20 11:05 Albumin/Globulin Ratio 0.4 % 06/17/20 11:05 Urine Color Sravanthi (Yellow) 06/18/20 Unknown Urine Turbidity Clear (Clear) 06/18/20 Unknown Urine pH 5.0 (5.0-7.0) 06/18/20 Unknown Ur Specific [place] 1.016 (1.003-1.030) 06/18/20 Unknown Urine Protein <15 mg/dl mg/dL (Negative) 06/18/20 Unknown Urine Glucose (UA) Neg mg/dL (Negative) 06/18/20 Unknown Urine Ketones Neg mg/dL (Negative) 06/18/20 Unknown Urine Blood Neg (Negative) 06/18/20 Unknown Urine Nitrite Neg (Negative) 06/18/20 Unknown Urine Bilirubin Neg (Negative) 06/18/20 Unknown Urine Urobilinogen 2.0 mg/dL (<2.0) 06/18/20 Unknown Ur Leukocyte Esterase Neg (Negative) 06/18/20 Unknown Urine WBC (Auto) 7.0 /HPF (0.0-6.0) H 06/18/20 Unknown Urine RBC (Auto) 1.0 /HPF (0.0-6.0) 06/18/20 Unknown U Epithel Cells (Auto) 1.0 /HPF (0-13.0) 06/18/20 Unknown Urine Mucus Few /HPF 06/18/20 Unknown Little/IV: Voiding Method Urinal Active Medications - Current Medications Current Medications: Generic Name Dose Route Start Last Admin Trade Name Freq PRN Reason Stop Dose Admin Acetaminophen 650 mg 06/17/20 15:20 Acetaminophen 325 Mg Tab PO Q4H PRN Pain MILD(1-3)/Fever >100.5/SHORT Albuterol 2.5 mg 06/17/20 15:20 Albuterol 2.5 Mg/3 Ml Nebu IH Q3HRT PRN Shortness Of Breath Allopurinol 100 mg 06/18/20 10:00 06/18/20 09:28 Allopurinol 100 Mg Tab PO 100 mg DAILY ONELIA Administration Furosemide 40 mg 06/18/20 06:00 06/19/20 06:15 Furosemide 40 Mg Tab PO Not Given DAILY@0600 ONELIA Multivitamins/Iron 1 each 06/18/20 10:00 06/18/20 09:54 Fe Fumarate/Fa/Mv, Min Comb#15 Cap (Hemocyte Plus) PO 1 each QDAY ONELIA Administration Nadolol 40 mg 06/18/20 10:00 06/18/20 09:33 Nadolol 20 Mg Tab PO Not Given QDAY ONELIA Ondansetron HCl 4 mg 06/17/20 15:20 Ondansetron 4 Mg/2 Ml Inj IV Q8H PRN Nausea And Vomiting Pantoprazole Sodium 40 mg 06/18/20 07:30 06/18/20 09:28 Pantoprazole 40 Mg Tab PO 40 mg QDAC ONELIA Administration Sodium Bicarbonate 650 mg 06/17/20 20:00 06/18/20 21:26 Sodium Bicarbonate 650 Mg Tab PO 650 mg TID ONELIA Administration Sodium Chloride 10 ml 06/17/20 22:00 06/18/20 21:26 Sodium Chloride 0.9% 10 Ml Flush Syringe IV 10 ml BID ONELIA Administration Sodium Chloride 10 ml 06/17/20 15:20 Sodium Chloride 0.9% 10 Ml Flush Syringe IV PRN PRN LINE FLUSH Spironolactone 50 mg 06/17/20 22:00 06/18/20 23:00 Spironolactone 25 Mg Tab PO 50 mg BID ONELIA Administration
[2020-06-19 09:30] LABS: Basophils % (Auto) 0.4 % (0.0-1.8); Eosinophils # (Auto) 0.1 K/mm3 (0.0-0.4); Eosinophils % (Auto) 1.6 % (0.0-4.3); Hematocrit 25.5 % (35.5-45.6); Hemoglobin 8.9 gm/dl (11.8-15.2); Mean Corpuscular HGB Conc 35 % (32-34); Mean Corpuscular Volume 117 fl (84-94); Monocytes # (Auto) 0.8 K/mm3 (0.0-0.8); Monocytes % (Auto) 10.4 % (0.0-7.3); Platelet Count 105 K/mm3 (140-440); Red Blood Count 2.18 M/mm3 (3.65-5.03); Red Cell Distribution Width 14.1 % (13.2-15.2)
[2020-06-19 09:31] LABS: Calcium 7.9 mg/dL (8.4-10.2)
[2020-06-19] MEDS: PANTOPRAZOLE 40 MG TAB PO SCH (10:49)
[2020-06-19] MEDS: SODIUM BICARBONATE 650 MG TAB PO SCH ×3 (10:49→23:00)
[2020-06-19] MEDS: FE FUMARATE/FA/MV, MIN COMB#15 CAP (HEMOCYTE PLUS) PO SCH (10:50)
[2020-06-19] MEDS: allopurinoL 100 MG TAB PO SCH (10:50)
[2020-06-19] MEDS: NADOLOL 20 MG TAB PO SCH (10:52)
[2020-06-19] MEDS: SPIRONOLACTONE 25 MG TAB PO SCH ×2 (10:55→23:01)
[2020-06-20] MEDS: FUROSEMIDE 40 MG TAB PO SCH (05:51)
--- NOTE | 2020-06-20 08:11 | Progress Note ---
History Interval history: Acute on chronic renal insufficiency Supportive care, continue medical management, encourage free water intake, monitor urine output every shift, Debility Physical therapy consulted, supportive care. Chronic liver disease Supportive care, continue medical management. Ascites Supportive care, outpatient therapeutic paracentesis. DVT prophylaxis SCD to bilateral lower extremities while in bed. 06/18. I suspect pt has more chronic renal disease and is likely at baseline. Creatinine was 1.4 in 2017. Check renal US. PT eval. Anticipate d/c based on results 06/19. Physical therapy evaluation recommends subacute rehab. Await case management for placement. Follow-up renal ultrasound 06/20. Physical therapy evaluation recommends subacute rehab. Await case management for placement. Follow-up renal ultrasound Hospitalist Physical - Constitutional Vitals: Temp Pulse Resp BP Pulse Ox 98.8 F 67 16 91/55 100 06/20/20 05:40 06/20/20 05:40 06/20/20 05:40 06/20/20 05:40 06/20/20 05:40 General appearance: Present: mild distress HEART Score - HEART Score Troponin: Troponin T 0.017 ng/mL (0.00-0.029) 06/17/20 13:02 Results - Labs CBC & Chem 7: 06/19/20 08:20 06/19/20 08:20 Labs: Laboratory Last Values WBC 7.3 K/mm3 (4.5-11.0) 06/19/20 08:20 RBC 2.18 M/mm3 (3.65-5.03) L 06/19/20 08:20 Hgb 8.9 gm/dl (11.8-15.2) L 06/19/20 08:20 Hct 25.5 % (35.5-45.6) L 06/19/20 08:20 MCV 117 fl (84-94) H 06/19/20 08:20 MCH 41 pg (28-32) H 06/19/20 08:20 MCHC 35 % (32-34) H 06/19/20 08:20 RDW 14.1 % (13.2-15.2) 06/19/20 08:20 Plt Count 105 K/mm3 (140-440) L 06/19/20 08:20 Lymph % (Auto) 14.0 % (13.4-35.0) 06/19/20 08:20 [place] % (Auto) 10.4 % (0.0-7.3) H 06/19/20 08:20 Eos % (Auto) 1.6 % (0.0-4.3) 06/19/20 08:20 Baso % (Auto) 0.4 % (0.0-1.8) 06/19/20 08:20 Lymph # (Auto) 1.0 K/mm3 (1.2-5.4) L 06/19/20 08:20 [place] # (Auto) 0.8 K/mm3 (0.0-0.8) 06/19/20 08:20 Eos # (Auto) 0.1 K/mm3 (0.0-0.4) 06/19/20 08:20 Baso # (Auto) 0.0 K/mm3 (0.0-0.1) 06/19/20 08:20 Seg Neutrophils % 73.6 % (40.0-70.0) H 06/19/20 08:20 Seg Neutrophils # 5.4 K/mm3 (1.8-7.7) 06/19/20 08:20 PT 16.5 Sec. (12.2-14.9) H 06/17/20 11:05 INR 1.33 (0.87-1.13) H 06/17/20 11:05 APTT 32.2 Sec. (24.2-36.6) 06/17/20 11:05 Sodium 133 mmol/L (137-145) L 06/19/20 08:20 Potassium 4.3 mmol/L (3.6-5.0) 06/19/20 08:20 Chloride 98.1 mmol/L (98-107) 06/19/20 08:20 Carbon Dioxide 27 mmol/L (22-30) 06/19/20 08:20 Anion Gap 12 mmol/L 06/19/20 08:20 BUN 29 mg/dL (9-20) H 06/19/20 08:20 Creatinine 2.0 mg/dL (0.8-1.3) H 06/19/20 08:20 Estimated GFR 41 ml/min 06/19/20 08:20 BUN/Creatinine Ratio 15 % 06/19/20 08:20 Glucose 97 mg/dL (75-100) 06/19/20 08:20 POC Glucose 93 mg/dL (70-105) 06/17/20 22:41 Calcium 7.9 mg/dL (8.4-10.2) L 06/19/20 08:20 Magnesium 1.50 mg/dL (1.7-2.3) L 06/17/20 11:05 Total Bilirubin 2.80 mg/dL (0.1-1.2) H 06/17/20 11:05 AST 36 units/L (5-40) 06/17/20 11:05 ALT 11 units/L (7-56) 06/17/20 11:05 Alkaline Phosphatase 107 units/L (35-129) 06/17/20 11:05 Troponin T 0.017 ng/mL (0.00-0.029) 06/17/20 13:02 NT-Pro-B Natriuret Pep 635.9 pg/mL (0-900) 06/17/20 11:05 Total Protein 8.0 g/dL (6.3-8.2) 06/17/20 11:05 Albumin 2.4 g/dL (3.9-5) L 06/17/20 11:05 Albumin/Globulin Ratio 0.4 % 06/17/20 11:05 Urine Color Sravanthi (Yellow) 06/18/20 Unknown Urine Turbidity Clear (Clear) 06/18/20 Unknown Urine pH 5.0 (5.0-7.0) 06/18/20 Unknown Ur Specific [place] 1.016 (1.003-1.030) 06/18/20 Unknown Urine Protein <15 mg/dl mg/dL (Negative) 06/18/20 Unknown Urine Glucose (UA) Neg mg/dL (Negative) 06/18/20 Unknown Urine Ketones Neg mg/dL (Negative) 06/18/20 Unknown Urine Blood Neg (Negative) 06/18/20 Unknown Urine Nitrite Neg (Negative) 06/18/20 Unknown Urine Bilirubin Neg (Negative) 06/18/20 Unknown Urine Urobilinogen 2.0 mg/dL (<2.0) 06/18/20 Unknown Ur Leukocyte Esterase Neg (Negative) 06/18/20 Unknown Urine WBC (Auto) 7.0 /HPF (0.0-6.0) H 06/18/20 Unknown Urine RBC (Auto) 1.0 /HPF (0.0-6.0) 06/18/20 Unknown U Epithel Cells (Auto) 1.0 /HPF (0-13.0) 06/18/20 Unknown Urine Mucus Few /HPF 06/18/20 Unknown Little/IV: Voiding Method Urinal Active Medications - Current Medications Current Medications: Generic Name Dose Route Start Last Admin Trade Name Freq PRN Reason Stop Dose Admin Acetaminophen 650 mg 06/17/20 15:20 Acetaminophen 325 Mg Tab PO Q4H PRN Pain MILD(1-3)/Fever >100.5/SHORT Albuterol 2.5 mg 06/17/20 15:20 Albuterol 2.5 Mg/3 Ml Nebu IH Q3HRT PRN Shortness Of Breath Allopurinol 100 mg 06/18/20 10:00 06/19/20 10:50 Allopurinol 100 Mg Tab PO 100 mg DAILY ONELIA Administration Furosemide 40 mg 06/18/20 06:00 06/20/20 05:51 Furosemide 40 Mg Tab PO 40 mg DAILY@0600 ONELIA Administration Multivitamins/Iron 1 each 06/18/20 10:00 06/19/20 10:50 Fe Fumarate/Fa/Mv, Min Comb#15 Cap (Hemocyte Plus) PO 1 each QDAY ONELIA Administration Nadolol 40 mg 06/18/20 10:00 06/19/20 10:52 Nadolol 20 Mg Tab PO Not Given QDAY ONELIA Ondansetron HCl 4 mg 06/17/20 15:20 Ondansetron 4 Mg/2 Ml Inj IV Q8H PRN Nausea And Vomiting Pantoprazole Sodium 40 mg 06/18/20 07:30 06/19/20 10:49 Pantoprazole 40 Mg Tab PO 40 mg QDAC ONELIA Administration Sodium Bicarbonate 650 mg 06/17/20 20:00 06/19/20 23:00 Sodium Bicarbonate 650 Mg Tab PO 650 mg TID ONELIA Administration Sodium Chloride 10 ml 06/17/20 22:00 06/19/20 23:01 Sodium Chloride 0.9% 10 Ml Flush Syringe IV 10 ml BID ONELIA Administration Sodium Chloride 10 ml 06/17/20 15:20 Sodium Chloride 0.9% 10 Ml Flush Syringe IV PRN PRN LINE FLUSH Spironolactone 50 mg 06/17/20 22:00 06/19/20 23:01 Spironolactone 25 Mg Tab PO Not Given BID ONELIA
[2020-06-20 09:31] LABS: Basophils % (Auto) 0.4 % (0.0-1.8); Eosinophils # (Auto) 0.1 K/mm3 (0.0-0.4); Eosinophils % (Auto) 1.4 % (0.0-4.3); Hematocrit 24.9 % (35.5-45.6); Hemoglobin 8.6 gm/dl (11.8-15.2); Lymphocytes % (Auto) 12.5 % (13.4-35.0); Mean Corpuscular HGB Conc 35 % (32-34); Mean Corpuscular Volume 116 fl (84-94); Monocytes # (Auto) 0.8 K/mm3 (0.0-0.8); Monocytes % (Auto) 10.1 % (0.0-7.3); Platelet Count 110 K/mm3 (140-440); Red Blood Count 2.14 M/mm3 (3.65-5.03); Red Cell Distribution Width 14.1 % (13.2-15.2)
[2020-06-20] MEDS: PANTOPRAZOLE 40 MG TAB PO SCH (09:39)
[2020-06-20] MEDS: allopurinoL 100 MG TAB PO SCH (09:39)
[2020-06-20] MEDS: NADOLOL 20 MG TAB PO SCH (09:39)
[2020-06-20] MEDS: SODIUM BICARBONATE 650 MG TAB PO SCH ×3 (09:40→21:53)
[2020-06-20] MEDS: SPIRONOLACTONE 25 MG TAB PO SCH ×2 (09:40→21:53)
[2020-06-20] MEDS: FE FUMARATE/FA/MV, MIN COMB#15 CAP (HEMOCYTE PLUS) PO SCH (09:41)
[2020-06-20 09:45] LABS: Calcium 7.9 mg/dL (8.4-10.2)
[2020-06-20] MEDS ORDERED: KETOROLAC 30 MG/1 ML INJ IV STA (18:31)
[2020-06-21] MEDS: FUROSEMIDE 40 MG TAB PO SCH (06:12)
--- NOTE | 2020-06-21 07:55 | Ultrasound Report ---
ULTRASOUND RENAL INDICATION / CLINICAL INFORMATION: renal failure. COMPARISON: None available. FINDINGS: RIGHT KIDNEY: Length = 12.2 cm. [normal > 9 cm] - Parenchymal Thickness = 1.4 cm. [normal > 1.5 cm] - Echogenicity: Normal. - Hydronephrosis: None. - Cyst or mass: No significant abnormality. - Stones: None seen. LEFT KIDNEY: Length = 9.4 cm. [normal > 9 cm] - Parenchymal Thickness = 1.0 cm. [normal > 1.5 cm] - Echogenicity: Normal. - Hydronephrosis: None. - Cyst or mass: No significant abnormality. - Stones: None seen. URINARY BLADDER: The bladder is poorly imaged but no gross abnormality is appreciated. FREE FLUID: None. ADDITIONAL FINDINGS: The visualized liver appears cirrhotic. There is small to medium perihepatic asc ites. IMPRESSION: Borderline to mildly atrophic left kidney. Unremarkable right kidney. No focal renal lesion or hydro nephrosis. Mild cirrhosis of the liver and small to medium ascites. Signer Name: Joe Shannon Jr, MD Signed: 06/21/2020 7:51 AM Workstation Name: [id number]
--- NOTE | 2020-06-21 08:03 | Progress Note ---
History Interval history: Acute on chronic renal insufficiency Supportive care, continue medical management, encourage free water intake, monitor urine output every shift, Debility Physical therapy consulted, supportive care. Chronic liver disease Supportive care, continue medical management. Ascites Supportive care, outpatient therapeutic paracentesis. DVT prophylaxis SCD to bilateral lower extremities while in bed. 06/18. I suspect pt has more chronic renal disease and is likely at baseline. Creatinine was 1.4 in 2017. Check renal US. PT eval. Anticipate d/c based on results 06/19. Physical therapy evaluation recommends subacute rehab. Await case management for placement. Follow-up renal ultrasound 06/20. Physical therapy evaluation recommends subacute rehab. Await case management for placement. Follow-up renal ultrasound 06/21. Renal ultrasound reveals borderline to mildly atrophic left kidney. Unremarkable right kidney. No focal renal lesion or hydronephrosis. Physical therapy recommends subacute rehab. Await placement. Hospitalist Physical - Constitutional Vitals: Temp Pulse Resp BP Pulse Ox 98.5 F 68 16 98/60 96 06/21/20 05:38 06/21/20 05:38 06/21/20 05:38 06/21/20 07:47 06/21/20 05:38 General appearance: Present: mild distress HEART Score - HEART Score Troponin: Troponin T 0.017 ng/mL (0.00-0.029) 06/17/20 13:02 Results - Labs CBC & Chem 7: 06/20/20 09:05 06/20/20 09:05 Labs: Laboratory Last Values WBC 8.1 K/mm3 (4.5-11.0) 06/20/20 09:05 RBC 2.14 M/mm3 (3.65-5.03) L 06/20/20 09:05 Hgb 8.6 gm/dl (11.8-15.2) L 06/20/20 09:05 Hct 24.9 % (35.5-45.6) L 06/20/20 09:05 MCV 116 fl (84-94) H 06/20/20 09:05 MCH 40 pg (28-32) H 06/20/20 09:05 MCHC 35 % (32-34) H 06/20/20 09:05 RDW 14.1 % (13.2-15.2) 06/20/20 09:05 Plt Count 110 K/mm3 (140-440) L 06/20/20 09:05 Lymph % (Auto) 12.5 % (13.4-35.0) L 06/20/20 09:05 [place] % (Auto) 10.1 % (0.0-7.3) H 06/20/20 09:05 Eos % (Auto) 1.4 % (0.0-4.3) 06/20/20 09:05 Baso % (Auto) 0.4 % (0.0-1.8) 06/20/20 09:05 Lymph # (Auto) 1.0 K/mm3 (1.2-5.4) L 06/20/20 09:05 [place] # (Auto) 0.8 K/mm3 (0.0-0.8) 06/20/20 09:05 Eos # (Auto) 0.1 K/mm3 (0.0-0.4) 06/20/20 09:05 Baso # (Auto) 0.0 K/mm3 (0.0-0.1) 06/20/20 09:05 Seg Neutrophils % 75.6 % (40.0-70.0) H 06/20/20 09:05 Seg Neutrophils # 6.1 K/mm3 (1.8-7.7) 06/20/20 09:05 PT 16.5 Sec. (12.2-14.9) H 06/17/20 11:05 INR 1.33 (0.87-1.13) H 06/17/20 11:05 APTT 32.2 Sec. (24.2-36.6) 06/17/20 11:05 Sodium 130 mmol/L (137-145) L 06/20/20 09:05 Potassium 4.0 mmol/L (3.6-5.0) 06/20/20 09:05 Chloride 96.3 mmol/L (98-107) L 06/20/20 09:05 Carbon Dioxide 27 mmol/L (22-30) 06/20/20 09:05 Anion Gap 11 mmol/L 06/20/20 09:05 BUN 28 mg/dL (9-20) H 06/20/20 09:05 Creatinine 1.9 mg/dL (0.8-1.3) H 06/20/20 09:05 Estimated GFR 44 ml/min 06/20/20 09:05 BUN/Creatinine Ratio 15 % 06/20/20 09:05 Glucose 120 mg/dL (75-100) H 06/20/20 09:05 POC Glucose 93 mg/dL (70-105) 06/17/20 22:41 Calcium 7.9 mg/dL (8.4-10.2) L 06/20/20 09:05 Magnesium 1.50 mg/dL (1.7-2.3) L 06/17/20 11:05 Total Bilirubin 2.80 mg/dL (0.1-1.2) H 06/17/20 11:05 AST 36 units/L (5-40) 06/17/20 11:05 ALT 11 units/L (7-56) 06/17/20 11:05 Alkaline Phosphatase 107 units/L (35-129) 06/17/20 11:05 Troponin T 0.017 ng/mL (0.00-0.029) 06/17/20 13:02 NT-Pro-B Natriuret Pep 635.9 pg/mL (0-900) 06/17/20 11:05 Total Protein 8.0 g/dL (6.3-8.2) 06/17/20 11:05 Albumin 2.4 g/dL (3.9-5) L 06/17/20 11:05 Albumin/Globulin Ratio 0.4 % 06/17/20 11:05 Urine Color Sravanthi (Yellow) 06/18/20 Unknown Urine Turbidity Clear (Clear) 06/18/20 Unknown Urine pH 5.0 (5.0-7.0) 06/18/20 Unknown Ur Specific [place] 1.016 (1.003-1.030) 06/18/20 Unknown Urine Protein <15 mg/dl mg/dL (Negative) 06/18/20 Unknown Urine Glucose (UA) Neg mg/dL (Negative) 06/18/20 Unknown Urine Ketones Neg mg/dL (Negative) 06/18/20 Unknown Urine Blood Neg (Negative) 06/18/20 Unknown Urine Nitrite Neg (Negative) 06/18/20 Unknown Urine Bilirubin Neg (Negative) 06/18/20 Unknown Urine Urobilinogen 2.0 mg/dL (<2.0) 06/18/20 Unknown Ur Leukocyte Esterase Neg (Negative) 06/18/20 Unknown Urine WBC (Auto) 7.0 /HPF (0.0-6.0) H 06/18/20 Unknown Urine RBC (Auto) 1.0 /HPF (0.0-6.0) 06/18/20 Unknown U Epithel Cells (Auto) 1.0 /HPF (0-13.0) 06/18/20 Unknown Urine Mucus Few /HPF 06/18/20 Unknown Little/IV: Voiding Method Urinal Active Medications - Current Medications Current Medications: Generic Name Dose Route Start Last Admin Trade Name Freq PRN Reason Stop Dose Admin Acetaminophen 650 mg 06/17/20 15:20 Acetaminophen 325 Mg Tab PO Q4H PRN Pain MILD(1-3)/Fever >100.5/SHORT Albuterol 2.5 mg 06/17/20 15:20 Albuterol 2.5 Mg/3 Ml Nebu IH Q3HRT PRN Shortness Of Breath Allopurinol 100 mg 06/18/20 10:00 06/20/20 09:39 Allopurinol 100 Mg Tab PO 100 mg DAILY ONELIA Administration Docusate Sodium 100 mg 06/21/20 10:00 Docusate Sodium 100 Mg Cap PO BID ONELIA Furosemide 40 mg 06/18/20 06:00 06/21/20 06:12 Furosemide 40 Mg Tab PO Not Given DAILY@0600 ONELIA Multivitamins/Iron 1 each 06/18/20 10:00 06/20/20 09:41 Fe Fumarate/Fa/Mv, Min Comb#15 Cap (Hemocyte Plus) PO 1 each QDAY ONELIA Administration Nadolol 40 mg 06/18/20 10:00 06/20/20 09:39 Nadolol 20 Mg Tab PO 40 mg QDAY ONELIA Administration Ondansetron HCl 4 mg 06/17/20 15:20 Ondansetron 4 Mg/2 Ml Inj IV Q8H PRN Nausea And Vomiting Pantoprazole Sodium 40 mg 06/18/20 07:30 06/20/20 09:39 Pantoprazole 40 Mg Tab PO 40 mg QDAC ONELIA Administration Sodium Bicarbonate 650 mg 06/17/20 20:00 06/20/20 21:53 Sodium Bicarbonate 650 Mg Tab PO 650 mg TID ONELIA Administration Sodium Chloride 10 ml 06/17/20 22:00 06/20/20 21:54 Sodium Chloride 0.9% 10 Ml Flush Syringe IV 10 ml BID ONELIA Administration Sodium Chloride 10 ml 06/17/20 15:20 Sodium Chloride 0.9% 10 Ml Flush Syringe IV PRN PRN LINE FLUSH Spironolactone 50 mg 06/17/20 22:00 06/20/20 21:53 Spironolactone 25 Mg Tab PO Not Given BID ONELIA
[2020-06-21] MEDS: SPIRONOLACTONE 25 MG TAB PO SCH ×2 (09:24→22:17)
[2020-06-21] MEDS: NADOLOL 20 MG TAB PO SCH (09:24)
[2020-06-21] MEDS: FE FUMARATE/FA/MV, MIN COMB#15 CAP (HEMOCYTE PLUS) PO SCH (09:24)
[2020-06-21] MEDS: PANTOPRAZOLE 40 MG TAB PO SCH (09:24)
[2020-06-21] MEDS: SODIUM BICARBONATE 650 MG TAB PO SCH ×3 (09:24→20:32)
[2020-06-21] MEDS: DOCUSATE SODIUM 100 MG CAP PO SCH ×2 (09:24→22:17)
[2020-06-21] MEDS: allopurinoL 100 MG TAB PO SCH (09:25)
[2020-06-21 10:53] LABS: Calcium 7.9 mg/dL (8.4-10.2)
[2020-06-21] MEDS: ACETAMINOPHEN 325 MG TAB PO PRN (22:23)
[2020-06-22 05:41] LABS: Calcium 7.8 mg/dL (8.4-10.2)
[2020-06-22] MEDS: FUROSEMIDE 40 MG TAB PO SCH (05:55)
[2020-06-22] MEDS: PANTOPRAZOLE 40 MG TAB PO SCH (08:17)
[2020-06-22] MEDS: ACETAMINOPHEN 325 MG TAB PO PRN ×2 (08:17→21:06)
[2020-06-22] MEDS: SODIUM BICARBONATE 650 MG TAB PO SCH ×3 (08:19→20:46)
--- NOTE | 2020-06-22 08:50 | Progress Note ---
Assessment and Plan Assessment and plan: Acute on chronic renal insufficiency Supportive care, continue medical management, encourage free water intake, monitor urine output every shift, Debility Physical therapy consulted, supportive care. Chronic liver disease Supportive care, continue medical management. Ascites Supportive care, outpatient therapeutic paracentesis. DVT prophylaxis SCD to bilateral lower extremities while in bed. 06/18. I suspect pt has more chronic renal disease and is likely at baseline. Creatinine was 1.4 in 2017. Check renal US. PT eval. Anticipate d/c based on results 06/19. Physical therapy evaluation recommends subacute rehab. Await case management for placement. Follow-up renal ultrasound 06/20. Physical therapy evaluation recommends subacute rehab. Await case management for placement. Follow-up renal ultrasound 06/21. Renal ultrasound reveals borderline to mildly atrophic left kidney. Unremarkable right kidney. No focal renal lesion or hydronephrosis. Physical therapy recommends subacute rehab. Await placement. 06/22/2020; patient is acute on chronic kidney disease, patient has been follow with Dr. Grace before. Nephrology was consulted and said patient's worsening renal function is due to hypotension due to Lasix and spironolactone. Lasix and spironolactone held for today. PT OT evaluated and recommend subacute rehab. Patient was placed on Megace, nutritional consult, Ensure. Management plan was discussed with the patient and his daughter Anny over the phone and was in agreement with the plan of care. History Interval history: Patient was seen and evaluated this morning Patient is complaining generalized weakness, poor appetite Hospitalist Physical - Physical exam Narrative exam: Not in cardiopulmonary distress. The patient appeared well nourished and normally developed. Vital signs as documented. Head exam is unremarkable. No scleral icterus . Neck is without jugular venous distension, thyromegaly, or carotid bruits. Lungs are clear to auscultation. Cardiac exam reveals regular rate and Rhythm. Abdominal exam reveals normal bowel sounds, nontender, no organomegaly. Extremities are nonedematous and both femoral and pedal pulses are normal. [employer]OR [employer]OD: Alert and oriented 3. No focal weakness. - Constitutional Vitals: Temp Pulse Resp BP Pulse Ox 98.3 F 73 16 91/47 95 06/22/20 03:47 06/22/20 03:47 06/22/20 03:47 06/22/20 03:47 06/22/20 08:38 General appearance: Present: mild distress HEART Score - HEART Score Troponin: Troponin T 0.017 ng/mL (0.00-0.029) 06/17/20 13:02 Results - Labs CBC & Chem 7: 06/20/20 09:05 06/22/20 04:47 Labs: Laboratory Last Values WBC 8.1 K/mm3 (4.5-11.0) 06/20/20 09:05 RBC 2.14 M/mm3 (3.65-5.03) L 06/20/20 09:05 Hgb 8.6 gm/dl (11.8-15.2) L 06/20/20 09:05 Hct 24.9 % (35.5-45.6) L 06/20/20 09:05 MCV 116 fl (84-94) H 06/20/20 09:05 MCH 40 pg (28-32) H 06/20/20 09:05 MCHC 35 % (32-34) H 06/20/20 09:05 RDW 14.1 % (13.2-15.2) 06/20/20 09:05 Plt Count 110 K/mm3 (140-440) L 06/20/20 09:05 Lymph % (Auto) 12.5 % (13.4-35.0) L 06/20/20 09:05 [place] % (Auto) 10.1 % (0.0-7.3) H 06/20/20 09:05 Eos % (Auto) 1.4 % (0.0-4.3) 06/20/20 09:05 Baso % (Auto) 0.4 % (0.0-1.8) 06/20/20 09:05 Lymph # (Auto) 1.0 K/mm3 (1.2-5.4) L 06/20/20 09:05 [facility] # (Auto) 0.8 K/mm3 (0.0-0.8) 06/20/20 09:05 Eos # (Auto) 0.1 K/mm3 (0.0-0.4) 06/20/20 09:05 Baso # (Auto) 0.0 K/mm3 (0.0-0.1) 06/20/20 09:05 Seg Neutrophils % 75.6 % (40.0-70.0) H 06/20/20 09:05 Seg Neutrophils # 6.1 K/mm3 (1.8-7.7) 06/20/20 09:05 PT 16.5 Sec. (12.2-14.9) H 06/17/20 11:05 INR 1.33 (0.87-1.13) H 06/17/20 11:05 APTT 32.2 Sec. (24.2-36.6) 06/17/20 11:05 Sodium 130 mmol/L (137-145) L 06/22/20 04:47 Potassium 4.0 mmol/L (3.6-5.0) 06/22/20 04:47 Chloride 95.3 mmol/L (98-107) L 06/22/20 04:47 Carbon Dioxide 25 mmol/L (22-30) 06/22/20 04:47 Anion Gap 14 mmol/L 06/22/20 04:47 BUN 35 mg/dL (9-20) H 06/22/20 04:47 Creatinine 2.9 mg/dL (0.8-1.3) H 06/22/20 04:47 Estimated GFR 27 ml/min 06/22/20 04:47 BUN/Creatinine Ratio 12 % 06/22/20 04:47 Glucose 95 mg/dL (75-100) 06/22/20 04:47 POC Glucose 93 mg/dL (70-105) 06/17/20 22:41 Calcium 7.8 mg/dL (8.4-10.2) L 06/22/20 04:47 Magnesium 1.50 mg/dL (1.7-2.3) L 06/17/20 11:05 Total Bilirubin 2.80 mg/dL (0.1-1.2) H 06/17/20 11:05 AST 36 units/L (5-40) 06/17/20 11:05 ALT 11 units/L (7-56) 06/17/20 11:05 Alkaline Phosphatase 107 units/L (35-129) 06/17/20 11:05 Troponin T 0.017 ng/mL (0.00-0.029) 06/17/20 13:02 NT-Pro-B Natriuret Pep 635.9 pg/mL (0-900) 06/17/20 11:05 Total Protein 8.0 g/dL (6.3-8.2) 06/17/20 11:05 Albumin 2.4 g/dL (3.9-5) L 06/17/20 11:05 Albumin/Globulin Ratio 0.4 % 06/17/20 11:05 Urine Color Sra[place]hi (Yellow) 06/18/20 Unknown Urine Turbidity Clear (Clear) 06/18/20 Unknown Urine pH 5.0 (5.0-7.0) 06/18/20 Unknown Ur Specific [place] 1.016 (1.003-1.030) 06/18/20 Unknown Urine Protein <15 mg/dl mg/dL (Negative) 06/18/20 Unknown Urine Glucose (UA) Neg mg/dL (Negative) 06/18/20 Unknown Urine Ketones Neg mg/dL (Negative) 06/18/20 Unknown Urine Blood Neg (Negative) 06/18/20 Unknown Urine Nitrite Neg (Negative) 06/18/20 Unknown Urine Bilirubin Neg (Negative) 06/18/20 Unknown Urine Urobilinogen 2.0 mg/dL (<2.0) 06/18/20 Unknown Ur Leukocyte Esterase Neg (Negative) 06/18/20 Unknown Urine WBC (Auto) 7.0 /HPF (0.0-6.0) H 06/18/20 Unknown Urine RBC (Auto) 1.0 /HPF (0.0-6.0) 06/18/20 Unknown U Epithel Cells (Auto) 1.0 /HPF (0-13.0) 06/18/20 Unknown Urine Mucus Few /HPF 06/18/20 Unknown Little/IV: Voiding Method Urinal Active Medications - Current Medications Current Medications: Generic Name Dose Route Start Last Admin Trade Name Freq PRN Reason Stop Dose Admin Acetaminophen 650 mg 06/17/20 15:20 06/22/20 08:17 Acetaminophen 325 Mg Tab PO 650 mg Q4H PRN Administration Pain MILD(1-3)/Fever >100.5/SHORT Albuterol 2.5 mg 06/17/20 15:20 Albuterol 2.5 Mg/3 Ml Nebu IH Q3HRT PRN Shortness Of Breath Allopurinol 100 mg 06/18/20 10:00 06/21/20 09:25 Allopurinol 100 Mg Tab PO 100 mg DAILY ONELIA Administration Docusate Sodium 100 mg 06/21/20 10:00 06/21/20 22:17 Docusate Sodium 100 Mg Cap PO 100 mg BID ONELIA Administration Furosemide 40 mg 06/18/20 06:00 06/22/20 05:55 Furosemide 40 Mg Tab PO Not Given DAILY@0600 [facility] Multivitamins/Iron 1 each 06/18/20 10:00 06/21/20 09:24 Fe Fumarate/Fa/Mv, Min Comb#15 Cap (Hemocyte Plus) PO 1 each QDAY ONELIA Administration Nadolol 40 mg 06/18/20 10:00 06/21/20 09:24 Nadolol 20 Mg Tab PO Not Given QDAY [facility] Ondansetron HCl 4 mg 06/17/20 15:20 Ondansetron 4 Mg/2 Ml Inj IV Q8H PRN Nausea And Vomiting Pantoprazole Sodium 40 mg 06/18/20 07:30 06/22/20 08:17 Pantoprazole 40 Mg Tab PO 40 mg QDAC ONELIA Administration Sodium Bicarbonate 650 mg 06/17/20 20:00 06/22/20 08:19 Sodium Bicarbonate 650 Mg Tab PO 650 mg TID ONELIA Administration Sodium Chloride 10 ml 06/17/20 22:00 06/21/20 22:18 Sodium Chloride 0.9% 10 Ml Flush Syringe IV 10 ml BID ONELIA Administration Sodium Chloride 10 ml 06/17/20 15:20 Sodium Chloride 0.9% 10 Ml Flush Syringe IV PRN PRN LINE FLUSH Spironolactone 50 mg 06/17/20 22:00 06/21/20 22:17 Spironolactone 25 Mg Tab PO Not Given BID ONELIA
[2020-06-22] MEDS: DOCUSATE SODIUM 100 MG CAP PO SCH ×2 (09:18→21:07)
[2020-06-22] MEDS: allopurinoL 100 MG TAB PO SCH (09:19)
[2020-06-22] MEDS: FE FUMARATE/FA/MV, MIN COMB#15 CAP (HEMOCYTE PLUS) PO SCH (09:19)
[2020-06-22] MEDS: NADOLOL 20 MG TAB PO SCH (09:19)
[2020-06-22] MEDS: SPIRONOLACTONE 25 MG TAB PO SCH (09:19)
--- NOTE | 2020-06-22 09:32 | Consultation ---
History of Present Illness - Reason for Consult Consult date: 06/22/20 acute renal failure, chronic renal failure - History of Present Illness 59 year old man with liver cirrhosis complicated by Ascites, chronic kidney disease presents to ED for weakness. Has been in hospital for 4 days now, creatinine had been stable at 1.8-2.0 but increased to 2.9 prompting consultation. Chronic hyponatremia noted but slightly worse to 130. At time of consult, patient notes that he continues to feel weak and cannot walk himself. Notes recent fall history. No other issues of note, denies any wors ening edema or dyspnea. No chest pain, no productive cough, skin rash. Notes generally poor appetite. Past History Past Medical History: liver disease, renal failure, other (See HPI) Past Surgical History: Other (Left hand surgery) Social history: . denies: smoking, prescription drug abuse Family history: hypertension Medications and Allergies Allergies Allergy/AdvReac Type Severity Reaction Status Date / Time No Known Allergies Allergy Verified 06/06/14 15:35 Home Medications Medication Instructions Recorded Confirmed Last Taken Type Pantoprazole [Protonix TAB] 40 mg PO QDAY #30 tablet 09/21/15 06/18/20 06/08/20 Rx Sodium Bicarbonate 650 mg PO TID #90 tablet 09/21/15 06/18/20 06/08/20 Rx nadoloL [Corgard] 40 mg PO QDAY #30 tablet 09/21/15 06/18/20 06/08/20 Rx Furosemide [Lasix TAB] 40 mg PO QDAY 04/10/16 06/18/20 06/08/20 History Spironolactone [Aldactone] 50 mg PO BID 04/10/16 06/18/20 06/08/20 History allopurinoL [Zyloprim] 100 mg PO DAILY PRN 02/03/19 06/18/20 01/08/19 History 100 mg Iron Fum,Ps/Folic/Bcomp,C No.9 1 each PO DAILY 06/09/20 06/18/20 06/08/20 History [Integra Plus Capsule] Active Meds: Active Medications Acetaminophen (Acetaminophen 325 Mg Tab) 650 mg PO Q4H PRN PRN Reason: Pain MILD(1-3)/Fever >100.5/SHORT Last Admin: 06/22/20 08:17 Dose: 650 mg Documented by: Albuterol (Albuterol 2.5 Mg/3 Ml Nebu) 2.5 mg IH Q3HRT PRN PRN Reason: Shortness Of Breath Allopurinol (Allopurinol 100 Mg Tab) 100 mg PO DAILY [facility] Last Admin: 06/22/20 09:19 Dose: 100 mg Documented by: Docusate Sodium (Docusate Sodium 100 Mg Cap) 100 mg PO BID [facility] Last Admin: 06/22/20 09:18 Dose: 100 mg Documented by: Multivitamins/Iron (Fe Fumarate/Fa/Mv, Min Comb#15 Cap (Hemocyte Plus)) 1 each PO QDAY [facility] Last Admin: 06/22/20 09:19 Dose: 1 each Documented by: Nadolol (Nadolol 20 Mg Tab) 40 mg PO QDAY [facility] Last Admin: 06/22/20 09:19 Dose: 40 mg Documented by: Ondansetron HCl (Ondansetron 4 Mg/2 Ml Inj) 4 mg IV Q8H PRN PRN Reason: Nausea And Vomiting Pantoprazole Sodium (Pantoprazole 40 Mg Tab) 40 mg PO QDAC [facility] Last Admin: 06/22/20 08:17 Dose: 40 mg Documented by: Sodium Bicarbonate (Sodium Bicarbonate 650 Mg Tab) 650 mg PO TID [facility] Last Admin: 06/22/20 08:19 Dose: 650 mg Documented by: Sodium Chloride (Sodium Chloride 0.9% 10 Ml Flush Syringe) 10 ml IV BID [facility] Last Admin: 06/22/20 09:26 Dose: Not Given Documented by: Sodium Chloride (Sodium Chloride 0.9% 10 Ml Flush Syringe) 10 ml IV PRN PRN PRN Reason: LINE FLUSH Review of Systems Constitutional: fatigue, weakness Cardiovascular: no chest pain, no palpitations, no edema Respiratory: no cough with sputum Gastrointestinal: loss of appetite, no abdominal pain, no nausea, no vomiting Genitourinary Male: no dysuria, no urinary frequency Musculoskeletal: no neck stiffness, no neck pain, no low back pain Integumentary: no rash Neurological: weakness, no head injury Exam - Vital Signs Vital signs: Vital Signs Temp Pulse Resp BP Pulse Ox 98.6 F 57 L 20 114/69 100 06/17/20 10:14 06/17/20 10:14 06/17/20 10:14 06/17/20 10:14 06/17/20 10:14 - Physical Exam Narrative exam: Constitutional: no acute distress, chronically frail appearing Head: NC/AT Neck: supple Lungs: clear to auscultation CV: RRR, no M/R/G Abdomen: soft, non-tender, bowel sounds present Back: nontender Extremities: minimal edema, pulses WNL Skin: intact Neuro: no focal deficits, alert and oriented x4 Results - Lab Results 06/20/20 09:05 06/22/20 04:47 Most recent lab results Calcium 7.8 mg/dL (8.4-10.2) L 06/22/20 04:47 Magnesium 1.50 mg/dL (1.7-2.3) L 06/17/20 11:05 Assessment and Plan # Acute on Chronic Kidney Injury: baseline creatinine around 1.8-2.0. Creatinine was stable but increased to 2.9 this AM, may be related to pre-renal injury in setting of liver disease and diuretic use (on lasix, spironolactone) with hypotension. Consider hepatorenal physiology if not improving with supportive measures - for today, hold diuretics, small NS bolus 250cc trial - maintain MAP>65 as able, may need midodrine to help with BP control - avoid nephrotoxins - renal ultrasound reviewed, atrophic left kidney noted, no acute obstruction - renally dose meds - continue NaHCO3 - urinalysis reviewed, no hematuria/proteinuria concerning for glomerular injury - no immediate indications for biopsy or renal replacement therapy # Hyponatremia: likely chronic due to liver disease (reviewed outpatient labs which shows baseline sodium around 132) - small fluid bolus today # Weakness: chronic, appreciate PT input # Chronic Liver Disease: hold diuretics for today # Ascites: restart diuretics once renal function more stable, BP stable, receives outpatient therapeutic paracentesis. # Anemia in Chronic Illness: monitor, prbc transfusion prn
[2020-06-22] MEDS: MEGESTROL 400 MG/10 ML ORAL LIQD PO SCH (11:52)
--- NOTE | 2020-06-23 09:01 | Progress Note ---
Assessment and Plan Assessment and plan: Acute on chronic renal insufficiency Supportive care, continue medical management, encourage free water intake, monitor urine output every shift, Debility Physical therapy consulted, supportive care. Chronic liver disease Supportive care, continue medical management. Ascites Supportive care, outpatient therapeutic paracentesis. DVT prophylaxis SCD to bilateral lower extremities while in bed. 06/18. I suspect pt has more chronic renal disease and is likely at baseline. Creatinine was 1.4 in 2017. Check renal US. PT eval. Anticipate d/c based on results 06/19. Physical therapy evaluation recommends subacute rehab. Await case management for placement. Follow-up renal ultrasound 06/20. Physical therapy evaluation recommends subacute rehab. Await case management for placement. Follow-up renal ultrasound 06/21. Renal ultrasound reveals borderline to mildly atrophic left kidney. Unremarkable right kidney. No focal renal lesion or hydronephrosis. Physical therapy recommends subacute rehab. Await placement. 06/22/2020; patient is acute on chronic kidney disease, patient has been follow with Dr. Grace before. Nephrology was consulted and said patient's worsening renal function is due to hypotension due to Lasix and spironolactone. Lasix and spironolactone held for today. PT OT evaluated and recommend subacute rehab. Patient was placed on Megace, nutritional consult, Ensure. Management plan was discussed with the patient and his daughter Anny over the phone and was in agreement with the plan of care. 06/23/2020; patient has still hypotension and I started on midodrine. Kidney function is worsening overnight nephrology is following. Nutrition consult. Patient will be discharged to subacute rehab. Nephrology consult appreciated. History Interval history: Patient was seen and evaluated this morning Patient is complaining generalized weakness, poor appetite Hospitalist Physical - Physical exam Narrative exam: Not in cardiopulmonary distress. The patient appeared well nourished and normally developed. Vital signs as documented. Head exam is unremarkable. No scleral icterus . Neck is without jugular venous distension, thyromegaly, or carotid bruits. Lungs are clear to auscultation. Cardiac exam reveals regular rate and Rhythm. Abdominal exam reveals normal bowel sounds, nontender, no organomegaly. Extremities are nonedematous and both femoral and pedal pulses are normal. 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 No focal weakness. - Constitutional Vitals: Temp Pulse Resp BP Pulse Ox 98.3 F 68 18 94/50 97 06/22/20 22:29 06/23/20 04:43 06/23/20 04:43 06/23/20 04:43 06/23/20 04:43 General appearance: Present: mild distress HEART Score - HEART Score Troponin: Troponin T 0.017 ng/mL (0.00-0.029) 06/17/20 13:02 Results - Labs CBC & Chem 7: 06/20/20 09:05 06/23/20 08:18 Labs: Laboratory Last Values WBC 8.1 K/mm3 (4.5-11.0) 06/20/20 09:05 RBC 2.14 M/mm3 (3.65-5.03) L 06/20/20 09:05 Hgb 8.6 gm/dl (11.8-15.2) L 06/20/20 09:05 Hct 24.9 % (35.5-45.6) L 06/20/20 09:05 MCV 116 fl (84-94) H 06/20/20 09:05 MCH 40 pg (28-32) H 06/20/20 09:05 MCHC 35 % (32-34) H 06/20/20 09:05 RDW 14.1 % (13.2-15.2) 06/20/20 09:05 Plt Count 110 K/mm3 (140-440) L 06/20/20 09:05 Lymph % (Auto) 12.5 % (13.4-35.0) L 06/20/20 09:05 [place] % (Auto) 10.1 % (0.0-7.3) H 06/20/20 09:05 Eos % (Auto) 1.4 % (0.0-4.3) 06/20/20 09:05 Baso % (Auto) 0.4 % (0.0-1.8) 06/20/20 09:05 Lymph # (Auto) 1.0 K/mm3 (1.2-5.4) L 06/20/20 09:05 [place] # (Auto) 0.8 K/mm3 (0.0-0.8) 06/20/20 09:05 Eos # (Auto) 0.1 K/mm3 (0.0-0.4) 06/20/20 09:05 Baso # (Auto) 0.0 K/mm3 (0.0-0.1) 06/20/20 09:05 Seg Neutrophils % 75.6 % (40.0-70.0) H 06/20/20 09:05 Seg Neutrophils # 6.1 K/mm3 (1.8-7.7) 06/20/20 09:05 PT 16.5 Sec. (12.2-14.9) H 06/17/20 11:05 INR 1.33 (0.87-1.13) H 06/17/20 11:05 APTT 32.2 Sec. (24.2-36.6) 06/17/20 11:05 Sodium 130 mmol/L (137-145) L 06/22/20 04:47 Potassium 4.0 mmol/L (3.6-5.0) 06/22/20 04:47 Chloride 95.3 mmol/L (98-107) L 06/22/20 04:47 Carbon Dioxide 25 mmol/L (22-30) 06/22/20 04:47 Anion Gap 14 mmol/L 06/22/20 04:47 BUN 35 mg/dL (9-20) H 06/22/20 04:47 Creatinine 2.9 mg/dL (0.8-1.3) H 06/22/20 04:47 Estimated GFR 27 ml/min 06/22/20 04:47 BUN/Creatinine Ratio 12 % 06/22/20 04:47 Glucose 95 mg/dL (75-100) 06/22/20 04:47 POC Glucose 93 mg/dL (70-105) 06/17/20 22:41 Calcium 7.8 mg/dL (8.4-10.2) L 06/22/20 04:47 Magnesium 1.50 mg/dL (1.7-2.3) L 06/17/20 11:05 Total Bilirubin 2.80 mg/dL (0.1-1.2) H 06/17/20 11:05 AST 36 units/L (5-40) 06/17/20 11:05 ALT 11 units/L (7-56) 06/17/20 11:05 Alkaline Phosphatase 107 units/L (35-129) 06/17/20 11:05 Troponin T 0.017 ng/mL (0.00-0.029) 06/17/20 13:02 NT-Pro-B Natriuret Pep 635.9 pg/mL (0-900) 06/17/20 11:05 Total Protein 8.0 g/dL (6.3-8.2) 06/17/20 11:05 Albumin 2.4 g/dL (3.9-5) L 06/17/20 11:05 Albumin/Globulin Ratio 0.4 % 06/17/20 11:05 Urine Color Sravanthi (Yellow) 06/18/20 Unknown Urine Turbidity Clear (Clear) 06/18/20 Unknown Urine pH 5.0 (5.0-7.0) 06/18/20 Unknown Ur Specific [place] 1.016 (1.003-1.030) 06/18/20 Unknown Urine Protein <15 mg/dl mg/dL (Negative) 06/18/20 Unknown Urine Glucose (UA) Neg mg/dL (Negative) 06/18/20 Unknown Urine Ketones Neg mg/dL (Negative) 06/18/20 Unknown Urine Blood Neg (Negative) 06/18/20 Unknown Urine Nitrite Neg (Negative) 06/18/20 Unknown Urine Bilirubin Neg (Negative) 06/18/20 Unknown Urine Urobilinogen 2.0 mg/dL (<2.0) 06/18/20 Unknown Ur Leukocyte Esterase Neg (Negative) 06/18/20 Unknown Urine WBC (Auto) 7.0 /HPF (0.0-6.0) H 06/18/20 Unknown Urine RBC (Auto) 1.0 /HPF (0.0-6.0) 06/18/20 Unknown U Epithel Cells (Auto) 1.0 /HPF (0-13.0) 06/18/20 Unknown Urine Mucus Few /HPF 06/18/20 Unknown Coronavirus (PCR) Negative (Negative) 06/22/20 08:54 Little/IV: Voiding Method Urinal Active Medications - Current Medications Current Medications: Generic Name Dose Route Start Last Admin Trade Name Freq PRN Reason Stop Dose Admin Acetaminophen 650 mg 06/17/20 15:20 06/22/20 21:06 Acetaminophen 325 Mg Tab PO 650 mg Q4H PRN Administration Pain MILD(1-3)/Fever >100.5/SHORT Albuterol 2.5 mg 06/17/20 15:20 Albuterol 2.5 Mg/3 Ml Nebu IH Q3HRT PRN Shortness Of Breath Allopurinol 100 mg 06/18/20 10:00 06/22/20 09:19 Allopurinol 100 Mg Tab PO 100 mg DAILY ONELIA Administration Docusate Sodium 100 mg 06/21/20 10:00 06/22/20 21:07 Docusate Sodium 100 Mg Cap PO 100 mg BID ONELIA Administration Megestrol Acetate 400 mg 06/22/20 11:00 06/22/20 11:52 Megestrol 400 Mg/10 Ml Oral Liqd PO 400 mg QDAY ONELIA Administration Multivitamins/Iron 1 each 06/18/20 10:00 06/22/20 09:19 Fe Fumarate/Fa/Mv, Min Comb#15 Cap (Hemocyte Plus) PO 1 each QDAY ONELIA Administration Nadolol 40 mg 06/18/20 10:00 06/22/20 09:19 Nadolol 20 Mg Tab PO 40 mg QDAY ONELIA Administration Ondansetron HCl 4 mg 06/17/20 15:20 Ondansetron 4 Mg/2 Ml Inj IV Q8H PRN Nausea And Vomiting Pantoprazole Sodium 40 mg 06/18/20 07:30 06/22/20 08:17 Pantoprazole 40 Mg Tab PO 40 mg QDAC ONELIA Administration Sodium Bicarbonate 650 mg 06/17/20 20:00 06/22/20 20:46 Sodium Bicarbonate 650 Mg Tab PO 650 mg TID ONELIA Administration Sodium Chloride 10 ml 06/17/20 22:00 06/22/20 21:08 Sodium Chloride 0.9% 10 Ml Flush Syringe IV 10 ml BID ONELIA Administration Sodium Chloride 10 ml 06/17/20 15:20 Sodium Chloride 0.9% 10 Ml Flush Syringe IV PRN PRN LINE FLUSH Nutrition/Malnutrition Assess - Dietary Evaluation Nutrition/Malnutrition Findings: Nutrition Notes Start: 06/22/20 11:12 Freq: Status: Active Protocol: Document 06/22/20 11:12 KATI (Rec: 06/22/20 11:27 KATI [id number]) Nutrition Notes Need for Assessment generated from: MD Order Initial or Follow up Assessment Current Diagnosis Acute Kidney Injury,CKD(stage I-IV) Other Pertinent Diagnosis liver cirrhosis, Current Diet Regular Labs/Tests Na 130 BUN 35 Cr 2.9 Pertinent Medications Reviewed Height 6 ft 3 in Weight 117.9 kg Leonard Body Weight (kg) 89.09 BMI 32.5 Intake Prior to Admission Poor Weight change and time frame Pt states he has lost muscle and fat but unsure how much due to having ascites Weight Status Obese Subjective/Other Information MD order for poor oral intakes . Pt states he hasn't been eating well for 3 months and eating mostly soup. Pt educated to eat low sodium foods. Pt would like mech soft diet. Pt drank juice for breakfast. Burn Absent Trauma Absent GI Symptoms None Current % PO Negligible Minimum of two criteria Yes Energy Intake (non-severe) <75% Estimated Energy Requirement >7 days Body Fat Depletion Mild depletion (non-severe) Muscle Mass Mild Depletion (non-severe) Fluid Accumulation Mild (non-severe) Reduced Assistant Merchandiser Strength Measurably Reduced (severe) #1 Nutrition Diagnosis Malnutrition Etiology ascites, liver cirrhosis As Evidenced by Signs and Symptoms <75% of EER in >7 days, fat and muscle wasting, weak hat blocker strength, BLE edema Is patient on ventilator? No Is Patient Ambulatory and/or Out of Bed No REE-([facility]-confined to bed) 2487.996 Kcal/Kg value to use for calculation 17 Approximate Energy Requirements Using 2004 kcal/Kg Calculation Used for Recommendations Kcal/kg Additional Notes Protein: (1-1.2g/kg AdjBW: 103kg) 103-124g Fluid: 1 ml/kcal or per MD Nutrition Intervention Change Diet Order: Cardiac, mech soft Add Supplement/Snack (indicate name/kcal Ensure Enlive BID /protein ) Provides kCal: 700 Provides Protein (gm) 40 Teaching Recipient Patient Learning Readiness Good Teaching Methods Discussion Response to Teaching Verbalize understanding Barriers to Learning No Barriers RD phone number provided Yes Patient aware of follow up options Yes Goal #1 Meet at least 75% of protein and energy needs via PO and ONS intakes Anticipated Discharge Needs: Low sodium Follow-Up By: 06/24/20 Additional Comments FU for intakes and ONS tolerance
[2020-06-23] MEDS: NADOLOL 20 MG TAB PO SCH (09:31)
[2020-06-23] MEDS: SODIUM BICARBONATE 650 MG TAB PO SCH ×3 (09:31→21:17)
[2020-06-23] MEDS: DOCUSATE SODIUM 100 MG CAP PO SCH ×2 (09:31→21:17)
[2020-06-23] MEDS: PANTOPRAZOLE 40 MG TAB PO SCH (09:31)
[2020-06-23] MEDS: MEGESTROL 400 MG/10 ML ORAL LIQD PO SCH (09:32)
[2020-06-23] MEDS: allopurinoL 100 MG TAB PO SCH (09:33)
[2020-06-23] MEDS: FE FUMARATE/FA/MV, MIN COMB#15 CAP (HEMOCYTE PLUS) PO SCH (09:33)
[2020-06-23] MEDS: ACETAMINOPHEN 325 MG TAB PO PRN ×2 (09:39→21:22)
[2020-06-23 10:05] LABS: Calcium 7.8 mg/dL (8.4-10.2)
--- NOTE | 2020-06-23 12:53 | Progress Note ---
Assessment and Plan # Acute on Chronic Kidney Injury: baseline creatinine around 1.8-2.0. Creatinine was stable but increased to 2.9->3.3 this AM, may be related to pre- renal injury in setting of liver disease and diuretic use (on lasix, spironolactone) with hypotension. Consider hepatorenal physiology if not improving with supportive measures; did not respond to small NS bolus - continue to hold diuretics; will trial another 250cc NS bolus now - agree with midodrine for low BP - maintain MAP>65 as able - avoid nephrotoxins - renal ultrasound reviewed, atrophic left kidney noted, no acute obstruction - renally dose meds - continue NaHCO3 - urinalysis reviewed, no hematuria/proteinuria concerning for glomerular injury - no immediate indications for biopsy or renal replacement therapy # Hyponatremia: likely chronic due to liver disease (reviewed outpatient labs which shows baseline sodium around 132) - small fluid bolus today # Weakness: chronic, appreciate PT input # Chronic Liver Disease: hold diuretics for today # Ascites: restart diuretics once renal function more stable, BP stable, receives outpatient therapeutic paracentesis. # Anemia in Chronic Illness: monitor, prbc transfusion prn Subjective Date of service: 06/23/20 Interval history: No acute changes noted this AM Objective - Exam Narrative Exam: Constitutional: no acute distress, chronically frail appearing Head: NC/AT Neck: supple Lungs: clear to auscultation CV: RRR, no M/R/G Abdomen: soft, non-tender, bowel sounds present Back: nontender Extremities: minimal edema, pulses WNL Skin: intact Neuro: no focal deficits, alert and oriented x4 - Vital Signs Vital signs: Vital Signs - 12hr 06/23/20 06/23/20 04:43 09:31 Pulse Rate 68 64 Respiratory 18 Rate Blood Pressure 94/50 91/46 O2 Sat by Pulse 97 Oximetry - Lab 06/20/20 09:05 06/23/20 08:18 Most recent lab results Calcium 7.8 mg/dL (8.4-10.2) L 06/23/20 08:18 Magnesium 1.50 mg/dL (1.7-2.3) L 06/17/20 11:05 Medications & Allergies - Medications Allergies/Adverse Reactions: Allergies No Known Allergies Allergy (Verified 06/06/14 15:35) Home Medications: Home Medications Medication Instructions Recorded Confirmed Last Taken Type Pantoprazole [Protonix TAB] 40 mg PO QDAY #30 tablet 09/21/15 06/18/20 06/08/20 Rx Sodium Bicarbonate 650 mg PO TID #90 tablet 09/21/15 06/18/20 06/08/20 Rx nadoloL [Corgard] 40 mg PO QDAY #30 tablet 09/21/15 06/18/20 06/08/20 Rx Furosemide [Lasix TAB] 40 mg PO QDAY 04/10/16 06/18/20 06/08/20 History Spironolactone [Aldactone] 50 mg PO BID 04/10/16 06/18/20 06/08/20 History allopurinoL [Zyloprim] 100 mg PO DAILY PRN 02/03/19 06/18/20 01/08/19 History 100 mg Iron Fum,Ps/Folic/Bcomp,C No.9 1 each PO DAILY 06/09/20 06/18/20 06/08/20 History [Integra Plus Capsule] Active Medications: Generic Name Dose Route Start Last Admin Trade Name Freq PRN Reason Stop Dose Admin Acetaminophen 650 mg 06/17/20 15:20 06/23/20 09:39 Acetaminophen 325 Mg Tab PO 650 mg Q4H PRN Administration Pain MILD(1-3)/Fever >100.5/SHORT Albuterol 2.5 mg 06/17/20 15:20 Albuterol 2.5 Mg/3 Ml Nebu IH Q3HRT PRN Shortness Of Breath Allopurinol 100 mg 06/18/20 10:00 06/23/20 09:33 Allopurinol 100 Mg Tab PO 100 mg DAILY ONELIA Administration Docusate Sodium 100 mg 06/21/20 10:00 06/23/20 09:31 Docusate Sodium 100 Mg Cap PO Not Given BID ONELIA Megestrol Acetate 400 mg 06/22/20 11:00 06/23/20 09:32 Megestrol 400 Mg/10 Ml Oral Liqd PO 400 mg QDAY ONELIA Administration Midodrine 5 mg 06/23/20 12:00 Midodrine 5 Mg Tab PO TID@0800,1200,1600 ONELIA Multivitamins/Iron 1 each 06/18/20 10:00 06/23/20 09:33 Fe Fumarate/Fa/Mv, Min Comb#15 Cap (Hemocyte Plus) PO 1 each QDAY ONELIA Administration Nadolol 40 mg 06/18/20 10:00 06/23/20 09:31 Nadolol 20 Mg Tab PO Not Given QDAY ONELIA Ondansetron HCl 4 mg 06/17/20 15:20 Ondansetron 4 Mg/2 Ml Inj IV Q8H PRN Nausea And Vomiting Pantoprazole Sodium 40 mg 06/18/20 07:30 06/23/20 09:31 Pantoprazole 40 Mg Tab PO 40 mg QDAC ONELIA Administration Sodium Bicarbonate 650 mg 06/17/20 20:00 06/23/20 09:31 Sodium Bicarbonate 650 Mg Tab PO 650 mg TID ONELIA Administration Sodium Chloride 10 ml 06/17/20 22:00 06/23/20 09:33 Sodium Chloride 0.9% 10 Ml Flush Syringe IV 10 ml BID ONELIA Administration Sodium Chloride 10 ml 06/17/20 15:20 Sodium Chloride 0.9% 10 Ml Flush Syringe IV PRN PRN LINE FLUSH
[2020-06-23] MEDS ORDERED: SODIUM CHLORIDE 0.9% 250ML 250 ML IV ONE (13:00)
[2020-06-23] MEDS: MIDODRINE 5 MG TAB PO SCH ×2 (14:03→17:25)
[2020-06-24 07:31] LABS: Calcium 7.8 mg/dL (8.4-10.2)
[2020-06-24] MEDS: PANTOPRAZOLE 40 MG TAB PO SCH (08:11)
[2020-06-24] MEDS: MIDODRINE 5 MG TAB PO SCH ×3 (08:11→16:38)
[2020-06-24] MEDS: SODIUM BICARBONATE 650 MG TAB PO SCH ×3 (08:17→20:35)
[2020-06-24] MEDS ORDERED: MIDODRINE 5 MG TAB PO SCH (08:22)
--- NOTE | 2020-06-24 08:25 | Progress Note ---
Assessment and Plan Assessment and plan: Acute on chronic renal insufficiency Supportive care, continue medical management, encourage free water intake, monitor urine output every shift, Debility Physical therapy consulted, supportive care. Chronic liver disease Supportive care, continue medical management. Ascites Supportive care, outpatient therapeutic paracentesis. DVT prophylaxis SCD to bilateral lower extremities while in bed. 06/18. I suspect pt has more chronic renal disease and is likely at baseline. Creatinine was 1.4 in 2017. Check renal US. PT eval. Anticipate d/c based on results 06/19. Physical therapy evaluation recommends subacute rehab. Await case management for placement. Follow-up renal ultrasound 06/20. Physical therapy evaluation recommends subacute rehab. Await case management for placement. Follow-up renal ultrasound 06/21. Renal ultrasound reveals borderline to mildly atrophic left kidney. Unremarkable right kidney. No focal renal lesion or hydronephrosis. Physical therapy recommends subacute rehab. Await placement. 06/22/2020; patient is acute on chronic kidney disease, patient has been follow with Dr. Grace before. Nephrology was consulted and said patient's worsening renal function is due to hypotension due to Lasix and spironolactone. Lasix and spironolactone held for today. PT OT evaluated and recommend subacute rehab. Patient was placed on Megace, nutritional consult, Ensure. Management plan was discussed with the patient and his daughter Anny over the phone and was in agreement with the plan of care. 06/23/2020; patient has still hypotension and I started on midodrine. Kidney function is worsening overnight nephrology is following. Nutrition consult. Patient will be discharged to subacute rehab. Nephrology consult appreciated. 06/24/2020; blood pressure still low and I increase midodrine. We will give him 250 mL of bolus. Renal function is worsening. Nephrology is following. History Interval history: Patient was seen and evaluated this morning Patient is complaining generalized weakness, poor appetite Patient's blood pressure was low Hospitalist Physical - Physical exam Narrative exam: Not in cardiopulmonary distress. The patient appeared well nourished and normally developed. Vital signs as documented. Head exam is unremarkable. No scleral icterus . Neck is without jugular venous distension, thyromegaly, or carotid bruits. Lungs are clear to auscultation. Cardiac exam reveals regular rate and Rhythm. Abdominal exam reveals normal bowel sounds, nontender, no organomegaly. Extremities are nonedematous and both femoral and pedal pulses are normal. [employer]NER: Alert and oriented 3. No focal weakness. - Constitutional Vitals: Temp Pulse Resp BP Pulse Ox 97.9 F 54 L 20 87/36 98 06/24/20 03:54 06/24/20 03:54 06/24/20 03:54 06/24/20 03:54 06/24/20 03:54 General appearance: Present: mild distress HEART Score - HEART Score Troponin: Troponin T 0.017 ng/mL (0.00-0.029) 06/17/20 13:02 Results - Labs CBC & Chem 7: 06/20/20 09:05 06/24/20 06:22 Labs: Laboratory Last Values WBC 8.1 K/mm3 (4.5-11.0) 06/20/20 09:05 RBC 2.14 M/mm3 (3.65-5.03) L 06/20/20 09:05 Hgb 8.6 gm/dl (11.8-15.2) L 06/20/20 09:05 Hct 24.9 % (35.5-45.6) L 06/20/20 09:05 MCV 116 fl (84-94) H 06/20/20 09:05 MCH 40 pg (28-32) H 06/20/20 09:05 MCHC 35 % (32-34) H 06/20/20 09:05 RDW 14.1 % (13.2-15.2) 06/20/20 09:05 Plt Count 110 K/mm3 (140-440) L 06/20/20 09:05 Lymph % (Auto) 12.5 % (13.4-35.0) L 06/20/20 09:05 [place] % (Auto) 10.1 % (0.0-7.3) H 06/20/20 09:05 Eos % (Auto) 1.4 % (0.0-4.3) 06/20/20 09:05 Baso % (Auto) 0.4 % (0.0-1.8) 06/20/20 09:05 Lymph # (Auto) 1.0 K/mm3 (1.2-5.4) L 06/20/20 09:05 [place] # (Auto) 0.8 K/mm3 (0.0-0.8) 06/20/20 09:05 Eos # (Auto) 0.1 K/mm3 (0.0-0.4) 06/20/20 09:05 Baso # (Auto) 0.0 K/mm3 (0.0-0.1) 06/20/20 09:05 Seg Neutrophils % 75.6 % (40.0-70.0) H 06/20/20 09:05 Seg Neutrophils # 6.1 K/mm3 (1.8-7.7) 06/20/20 09:05 PT 16.5 Sec. (12.2-14.9) H 06/17/20 11:05 INR 1.33 (0.87-1.13) H 06/17/20 11:05 APTT 32.2 Sec. (24.2-36.6) 06/17/20 11:05 Sodium 131 mmol/L (137-145) L 06/24/20 06:22 Potassium 4.3 mmol/L (3.6-5.0) 06/24/20 06:22 Chloride 95.2 mmol/L (98-107) L 06/24/20 06:22 Carbon Dioxide 25 mmol/L (22-30) 06/24/20 06:22 Anion Gap 15 mmol/L 06/24/20 06:22 BUN 43 mg/dL (9-20) H 06/24/20 06:22 Creatinine 3.5 mg/dL (0.8-1.3) H 06/24/20 06:22 Estimated GFR 22 ml/min 06/24/20 06:22 BUN/Creatinine Ratio 12 % 06/24/20 06:22 Glucose 81 mg/dL (75-100) 06/24/20 06:22 POC Glucose 93 mg/dL (70-105) 06/17/20 22:41 Calcium 7.8 mg/dL (8.4-10.2) L 06/24/20 06:22 Magnesium 1.50 mg/dL (1.7-2.3) L 06/17/20 11:05 Total Bilirubin 2.80 mg/dL (0.1-1.2) H 06/17/20 11:05 AST 36 units/L (5-40) 06/17/20 11:05 ALT 11 units/L (7-56) 06/17/20 11:05 Alkaline Phosphatase 107 units/L (35-129) 06/17/20 11:05 Troponin T 0.017 ng/mL (0.00-0.029) 06/17/20 13:02 NT-Pro-B Natriuret Pep 635.9 pg/mL (0-900) 06/17/20 11:05 Total Protein 8.0 g/dL (6.3-8.2) 06/17/20 11:05 Albumin 2.4 g/dL (3.9-5) L 06/17/20 11:05 Albumin/Globulin Ratio 0.4 % 06/17/20 11:05 Urine Color Sravanthi (Yellow) 06/18/20 Unknown Urine Turbidity Clear (Clear) 06/18/20 Unknown Urine pH 5.0 (5.0-7.0) 06/18/20 Unknown Ur Specific [place] 1.016 (1.003-1.030) 06/18/20 Unknown Urine Protein <15 mg/dl mg/dL (Negative) 06/18/20 Unknown Urine Glucose (UA) Neg mg/dL (Negative) 06/18/20 Unknown Urine Ketones Neg mg/dL (Negative) 06/18/20 Unknown Urine Blood Neg (Negative) 06/18/20 Unknown Urine Nitrite Neg (Negative) 06/18/20 Unknown Urine Bilirubin Neg (Negative) 06/18/20 Unknown Urine Urobilinogen 2.0 mg/dL (<2.0) 06/18/20 Unknown Ur Leukocyte Esterase Neg (Negative) 06/18/20 Unknown Urine WBC (Auto) 7.0 /HPF (0.0-6.0) H 06/18/20 Unknown Urine RBC (Auto) 1.0 /HPF (0.0-6.0) 06/18/20 Unknown U Epithel Cells (Auto) 1.0 /HPF (0-13.0) 06/18/20 Unknown Urine Mucus Few /HPF 06/18/20 Unknown Coronavirus (PCR) Negative (Negative) 06/22/20 08:54 Little/IV: Voiding Method Bedside Commode Active Medications - Current Medications Current Medications: Generic Name Dose Route Start Last Admin Trade Name Freq PRN Reason Stop Dose Admin Acetaminophen 650 mg 06/17/20 15:20 06/23/20 21:22 Acetaminophen 325 Mg Tab PO 650 mg Q4H PRN Administration Pain MILD(1-3)/Fever >100.5/SHORT Albuterol 2.5 mg 06/17/20 15:20 Albuterol 2.5 Mg/3 Ml Nebu IH Q3HRT PRN Shortness Of Breath Allopurinol 100 mg 06/18/20 10:00 06/23/20 09:33 Allopurinol 100 Mg Tab PO 100 mg DAILY ONELIA Administration Docusate Sodium 100 mg 06/21/20 10:00 06/23/20 21:17 Docusate Sodium 100 Mg Cap PO 100 mg BID ONELIA Administration Megestrol Acetate 400 mg 06/22/20 11:00 06/23/20 09:32 Megestrol 400 Mg/10 Ml Oral Liqd PO 400 mg QDAY ONELIA Administration Midodrine 10 mg 06/24/20 08:22 Midodrine 5 Mg Tab PO TID@0800,1200,1600 ONELIA Multivitamins/Iron 1 each 06/18/20 10:00 06/23/20 09:33 Fe Fumarate/Fa/Mv, Min Comb#15 Cap (Hemocyte Plus) PO 1 each QDAY ONELIA Administration Ondansetron HCl 4 mg 06/17/20 15:20 Ondansetron 4 Mg/2 Ml Inj IV Q8H PRN Nausea And Vomiting Pantoprazole Sodium 40 mg 06/18/20 07:30 06/24/20 08:11 Pantoprazole 40 Mg Tab PO 40 mg QDAC ONELIA Administration Sodium Bicarbonate 650 mg 06/17/20 20:00 06/24/20 08:17 Sodium Bicarbonate 650 Mg Tab PO 650 mg TID ONELIA Administration Sodium Chloride 10 ml 06/17/20 22:00 06/23/20 21:18 Sodium Chloride 0.9% 10 Ml Flush Syringe IV 10 ml BID ONELIA Administration Sodium Chloride 10 ml 06/17/20 15:20 Sodium Chloride 0.9% 10 Ml Flush Syringe IV PRN PRN LINE FLUSH Nutrition/Malnutrition Assess - Dietary Evaluation Nutrition/Malnutrition Findings: Nutrition Notes Start: 06/22/20 11:12 Freq: Status: Active Protocol: Document 06/23/20 12:37 (Rec: 06/23/20 12:41 [id number]) Nutrition Notes Initial or Follow up Brief Note Current Diagnosis Acute Kidney Injury,CKD(stage I-IV) Other Pertinent Diagnosis liver cirrhosis Current Diet Regular Subjective/Other 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 Nutrition Intervention Add Supplement/Snack (indicate name/kcal Nepro BID /protein ) Provides kCal: 950 Provides Protein (gm) 38 Follow-Up By: 06/24/20 Additional Comments FU for intakes and ONS tolerance
[2020-06-24] MEDS ORDERED: MIDODRINE 5 MG TAB PO ONE (08:35)
[2020-06-24] MEDS ORDERED: SODIUM CHLORIDE 0.9% 250ML 250 ML IV SCH (09:00)
[2020-06-24] MEDS ORDERED: SODIUM CHLORIDE 0.9% 1000 ML 250 ML IV SCH (09:00)
[2020-06-24] MEDS: FE FUMARATE/FA/MV, MIN COMB#15 CAP (HEMOCYTE PLUS) PO SCH (09:04)
[2020-06-24] MEDS: allopurinoL 100 MG TAB PO SCH (09:04)
[2020-06-24] MEDS: MEGESTROL 400 MG/10 ML ORAL LIQD PO SCH (09:04)
[2020-06-24] MEDS: DOCUSATE SODIUM 100 MG CAP PO SCH ×3 (09:05→22:24)
[2020-06-24 10:08] LABS: Bilirubin,Urine NEG (Negative); Blood,Urine NEG (Negative); Color,Urine Amber (Yellow); Mucus,Urine FEW /HPF; Protein,Urine <15 mg/dL mg/dL (Negative)
[2020-06-24 10:45] LABS: Osmolality,Urine 333 Mosm/kg
--- NOTE | 2020-06-24 12:29 | Progress Note ---
Assessment and Plan # Acute on Chronic Kidney Injury: baseline creatinine around 1.8-2.0. Creatinine was stable but increased to 2.9->3.3->3.5 this AM, may be related to pre-renal injury in setting of liver disease and diuretic use (on lasix, spironolactone) with hypotension but did not improve with total of 500cc of normal saline. Consider hepatorenal physiology if not improving with supportive measures - continue to hold diuretics; agree with additional bolus - agree with midodrine for low BP, dose increased as he remains hypotensive - checking urine sodium, osm; also add on serum albumin, plan for IV albumin infusion tomorrow if renal function continues to worsen - maintain MAP>65 as able - avoid nephrotoxins - renal ultrasound reviewed, atrophic left kidney noted, no acute obstruction - renally dose meds - continue NaHCO3 - urinalysis reviewed, no hematuria/proteinuria concerning for glomerular injury - no immediate indications for biopsy or renal replacement therapy # Hyponatremia: likely chronic due to liver disease (reviewed outpatient labs which shows baseline sodium around 132) - small fluid bolus today # Weakness: chronic, appreciate PT input # Chronic Liver Disease: hold diuretics for today # Ascites: restart diuretics once renal function more stable, BP stable, receives outpatient therapeutic paracentesis. # Anemia in Chronic Illness: monitor, prbc transfusion prn Subjective Date of service: 06/24/20 Interval history: No acute changes noted this AM, does state that he feels better Objective - Exam Narrative Exam: Constitutional: no acute distress, chronically frail appearing Head: NC/AT Neck: supple Lungs: clear to auscultation CV: RRR, no M/R/G Abdomen: soft, non-tender, bowel sounds present Back: nontender Extremities: minimal edema, pulses WNL Skin: intact Neuro: no focal deficits, alert and oriented x4 - Vital Signs Vital signs: Vital Signs - 12hr 06/24/20 06/24/20 06/24/20 03:54 08:26 11:15 Temperature 97.9 F 98.2 F 98.4 F Pulse Rate 54 L 60 66 Respiratory 20 18 18 Rate Blood Pressure 87/36 94/58 103/51 O2 Sat by Pulse 98 100 100 Oximetry 06/24/20 11:51 Temperature Pulse Rate Respiratory Rate Blood Pressure O2 Sat by Pulse 96 Oximetry - Lab 06/20/20 09:05 06/24/20 06:22 Most recent lab results Calcium 7.8 mg/dL (8.4-10.2) L 06/24/20 06:22 Magnesium 1.50 mg/dL (1.7-2.3) L 06/17/20 11:05 Urine Sodium 38 mmol/L 06/24/20 Unknown Medications & Allergies - Medications Allergies/Adverse Reactions: Allergies No Known Allergies Allergy (Verified 06/06/14 15:35) Home Medications: Home Medications Medication Instructions Recorded Confirmed Last Taken Type Pantoprazole [Protonix TAB] 40 mg PO QDAY #30 tablet 09/21/15 06/18/20 06/08/20 Rx Sodium Bicarbonate 650 mg PO TID #90 tablet 09/21/15 06/18/20 06/08/20 Rx nadoloL [Corgard] 40 mg PO QDAY #30 tablet 09/21/15 06/18/20 06/08/20 Rx Furosemide [Lasix TAB] 40 mg PO QDAY 04/10/16 06/18/20 06/08/20 History Spironolactone [Aldactone] 50 mg PO BID 04/10/16 06/18/20 06/08/20 History allopurinoL [Zyloprim] 100 mg PO DAILY PRN 02/03/19 06/18/20 01/08/19 History 100 mg Iron Fum,Ps/Folic/Bcomp,C No.9 1 each PO DAILY 06/09/20 06/18/20 06/08/20 History [Integra Plus Capsule] Active Medications: Generic Name Dose Route Start Last Admin Trade Name Freq PRN Reason Stop Dose Admin Acetaminophen 650 mg 06/17/20 15:20 06/23/20 21:22 Acetaminophen 325 Mg Tab PO 650 mg Q4H PRN Administration Pain MILD(1-3)/Fever >100.5/SHORT Albumin Human 25 gm 06/24/20 14:00 Albumin Human 25% (25 Gm/100 Ml) Inj IV 06/26/20 06:01 Q8HR ONELIA Albuterol 2.5 mg 06/17/20 15:20 Albuterol 2.5 Mg/3 Ml Nebu IH Q3HRT PRN Shortness Of Breath Allopurinol 100 mg 06/18/20 10:00 06/24/20 09:04 Allopurinol 100 Mg Tab PO 100 mg DAILY ONELIA Administration Docusate Sodium 100 mg 06/21/20 10:00 06/24/20 09:08 Docusate Sodium 100 Mg Cap PO Not Given BID ONELIA Megestrol Acetate 400 mg 06/22/20 11:00 06/24/20 09:04 Megestrol 400 Mg/10 Ml Oral Liqd PO 400 mg QDAY ONELIA Administration Midodrine 10 mg 06/24/20 12:00 06/24/20 12:00 Midodrine 5 Mg Tab PO 10 mg TID@0800,1200,1600 ONELIA Administration Multivitamins/Iron 1 each 06/18/20 10:00 06/24/20 09:04 Fe Fumarate/Fa/Mv, Min Comb#15 Cap (Hemocyte Plus) PO 1 each QDAY ONELIA Administration Ondansetron HCl 4 mg 06/17/20 15:20 Ondansetron 4 Mg/2 Ml Inj IV Q8H PRN Nausea And Vomiting Pantoprazole Sodium 40 mg 06/18/20 07:30 06/24/20 08:11 Pantoprazole 40 Mg Tab PO 40 mg QDAC ONELIA Administration Sodium Bicarbonate 650 mg 06/17/20 20:00 06/24/20 08:17 Sodium Bicarbonate 650 Mg Tab PO 650 mg TID ONELIA Administration Sodium Chloride 10 ml 06/17/20 22:00 06/24/20 08:59 Sodium Chloride 0.9% 10 Ml Flush Syringe IV 10 ml BID ONELIA Administration Sodium Chloride 10 ml 06/17/20 15:20 Sodium Chloride 0.9% 10 Ml Flush Syringe IV PRN PRN LINE FLUSH
--- NOTE | 2020-06-24 14:11 | Procedure Note ---
Date of procedure: 06/24/20 Pre-op diagnosis: ascites Post-op diagnosis: same Procedure: US paracentesis Findings: large ascites Anesthesia: local Surgeon: OLGA WALKER Estimated blood loss: none Pathology: none Specimen disposition: discarded Condition: stable Disposition: floor
[2020-06-24] MEDS: ALBUMIN HUMAN 25% (25 GM/100 ML) INJ IV SCH ×3 (14:44→22:13)
--- NOTE | 2020-06-24 16:08 | Ultrasound Report ---
ULTRASOUND-GUIDED PARACENTESIS HISTORY: Abdominal distention, massive ascites. PROCEDURE: The risks (including but not limited to bleeding, infection, and bowel injury) and benefi ts were explained to the patient and informed consent was obtained. A time out procedure was perform ed. Ultrasound was used to evaluate the abdomen and locate the largest ascites fluid pocket. Once the sk in was marked, the procedure site was prepped and draped in the usual sterile fashion and lidocaine w as used for local anesthesia. A 5 [place] centesis catheter was placed. The patient was monitored c losely throughout the procedure, and a total of 12,500 mL of clear yellow fluid was aspirated. No la bs were ordered. The patient tolerated the procedure well with no complications. IMPRESSION: Successful ultrasound-guided paracentesis as described. Signer Name: Joe Shannon Jr, MD Signed: 06/24/2020 4:04 PM Workstation Name: [id number]
[2020-06-25] MEDS: ALBUMIN HUMAN 25% (25 GM/100 ML) INJ IV SCH ×3 (05:26→22:58)
--- NOTE | 2020-06-25 07:45 | Progress Note ---
Assessment and Plan Assessment and plan: Acute on chronic renal insufficiency Supportive care, continue medical management, encourage free water intake, monitor urine output every shift, Debility Physical therapy consulted, supportive care. Chronic liver disease Supportive care, continue medical management. Ascites Supportive care, outpatient therapeutic paracentesis. DVT prophylaxis SCD to bilateral lower extremities while in bed. 06/18. I suspect pt has more chronic renal disease and is likely at baseline. Creatinine was 1.4 in 2017. Check renal US. PT eval. Anticipate d/c based on results 06/19. Physical therapy evaluation recommends subacute rehab. Await case management for placement. Follow-up renal ultrasound 06/20. Physical therapy evaluation recommends subacute rehab. Await case management for placement. Follow-up renal ultrasound 06/21. Renal ultrasound reveals borderline to mildly atrophic left kidney. Unremarkable right kidney. No focal renal lesion or hydronephrosis. Physical therapy recommends subacute rehab. Await placement. 06/22/2020; patient is acute on chronic kidney disease, patient has been follow with Dr. Grace before. Nephrology was consulted and said patient's worsening renal function is due to hypotension due to Lasix and spironolactone. Lasix and spironolactone held for today. PT OT evaluated and recommend subacute rehab. Patient was placed on Megace, nutritional consult, Ensure. Management plan was discussed with the patient and his daughter Anny over the phone and was in agreement with the plan of care. 06/23/2020; patient has still hypotension and I started on midodrine. Kidney function is worsening overnight nephrology is following. Nutrition consult. Patient will be discharged to subacute rehab. Nephrology consult appreciated. 06/24/2020; blood pressure still low and I increase midodrine. We will give him 250 mL of bolus. Renal function is worsening. Nephrology is following. 06/25/2020; patient had ultrasound-guided paracentesis yesterday and drained 12.5 L of straw-colored fluid. Blood pressure this morning is holding. Continue with midodrine. Continue with albumin. Nephrology is following. Morning labs are pending. History Interval history: Patient was seen and evaluated this morning Patient is complaining generalized weakness, poor appetite Hospitalist Physical - Physical exam Narrative exam: Not in cardiopulmonary distress. The patient appeared well nourished and normally developed. Vital signs as documented. Head exam is unremarkable. No scleral icterus . Neck is without jugular venous distension, thyromegaly, or carotid bruits. Lungs are clear to auscultation. Cardiac exam reveals regular rate and Rhythm. Abdominal exam reveals normal bowel sounds, nontender, no organomegaly. Extremities are nonedematous and both femoral and pedal pulses are normal. [employer]: Alert and oriented 3. No focal weakness. - Constitutional Vitals: Temp Pulse Resp BP Pulse Ox 98.6 F 65 20 102/52 100 06/25/20 05:32 06/25/20 05:32 06/25/20 05:32 06/25/20 05:32 06/25/20 05:32 General appearance: Present: mild distress HEART Score - HEART Score Troponin: Troponin T 0.017 ng/mL (0.00-0.029) 06/17/20 13:02 Results - Labs CBC & Chem 7: 06/20/20 09:05 06/24/20 06:22 Labs: Laboratory Last Values WBC 8.1 K/mm3 (4.5-11.0) 06/20/20 09:05 RBC 2.14 M/mm3 (3.65-5.03) L 06/20/20 09:05 Hgb 8.6 gm/dl (11.8-15.2) L 06/20/20 09:05 Hct 24.9 % (35.5-45.6) L 06/20/20 09:05 MCV 116 fl (84-94) H 06/20/20 09:05 MCH 40 pg (28-32) H 06/20/20 09:05 MCHC 35 % (32-34) H 06/20/20 09:05 RDW 14.1 % (13.2-15.2) 06/20/20 09:05 Plt Count 110 K/mm3 (140-440) L 06/20/20 09:05 Lymph % (Auto) 12.5 % (13.4-35.0) L 06/20/20 09:05 [place] % (Auto) 10.1 % (0.0-7.3) H 06/20/20 09:05 Eos % (Auto) 1.4 % (0.0-4.3) 06/20/20 09:05 Baso % (Auto) 0.4 % (0.0-1.8) 06/20/20 09:05 Lymph # (Auto) 1.0 K/mm3 (1.2-5.4) L 06/20/20 09:05 [place] # (Auto) 0.8 K/mm3 (0.0-0.8) 06/20/20 09:05 Eos # (Auto) 0.1 K/mm3 (0.0-0.4) 06/20/20 09:05 Baso # (Auto) 0.0 K/mm3 (0.0-0.1) 06/20/20 09:05 Seg Neutrophils % 75.6 % (40.0-70.0) H 06/20/20 09:05 Seg Neutrophils # 6.1 K/mm3 (1.8-7.7) 06/20/20 09:05 PT 16.5 Sec. (12.2-14.9) H 06/17/20 11:05 INR 1.33 (0.87-1.13) H 06/17/20 11:05 APTT 32.2 Sec. (24.2-36.6) 06/17/20 11:05 Sodium 131 mmol/L (137-145) L 06/24/20 06:22 Potassium 4.3 mmol/L (3.6-5.0) 06/24/20 06:22 Chloride 95.2 mmol/L (98-107) L 06/24/20 06:22 Carbon Dioxide 25 mmol/L (22-30) 06/24/20 06:22 Anion Gap 15 mmol/L 06/24/20 06:22 BUN 43 mg/dL (9-20) H 06/24/20 06:22 Creatinine 3.5 mg/dL (0.8-1.3) H 06/24/20 06:22 Estimated GFR 22 ml/min 06/24/20 06:22 BUN/Creatinine Ratio 12 % 06/24/20 06:22 Glucose 81 mg/dL (75-100) 06/24/20 06:22 POC Glucose 93 mg/dL (70-105) 06/17/20 22:41 Calcium 7.8 mg/dL (8.4-10.2) L 06/24/20 06:22 Magnesium 1.50 mg/dL (1.7-2.3) L 06/17/20 11:05 Total Bilirubin 2.80 mg/dL (0.1-1.2) H 06/17/20 11:05 AST 36 units/L (5-40) 06/17/20 11:05 ALT 11 units/L (7-56) 06/17/20 11:05 Alkaline Phosphatase 107 units/L (35-129) 06/17/20 11:05 Troponin T 0.017 ng/mL (0.00-0.029) 06/17/20 13:02 NT-Pro-B Natriuret Pep 635.9 pg/mL (0-900) 06/17/20 11:05 Total Protein 8.0 g/dL (6.3-8.2) 06/17/20 11:05 Albumin 2.1 g/dL (3.9-5) L 06/24/20 17:48 Albumin/Globulin Ratio 0.4 % 06/17/20 11:05 Urine Color Sravanthi (Yellow) 06/24/20 Unknown Urine Turbidity Hazy (Clear) 06/24/20 Unknown Urine pH 5.0 (5.0-7.0) 06/24/20 Unknown Ur Specific [place] 1.018 (1.003-1.030) 06/24/20 Unknown Urine Protein <15 mg/dl mg/dL (Negative) 06/24/20 Unknown Urine Glucose (UA) Neg mg/dL (Negative) 06/24/20 Unknown Urine Ketones Neg mg/dL (Negative) 06/24/20 Unknown Urine Blood Neg (Negative) 06/24/20 Unknown Urine Nitrite Neg (Negative) 06/24/20 Unknown Urine Bilirubin Neg (Negative) 06/24/20 Unknown Urine Urobilinogen 4.0 mg/dL (<2.0) 06/24/20 Unknown Ur Leukocyte Esterase Tr (Negative) 06/24/20 Unknown Urine WBC (Auto) 6.0 /HPF (0.0-6.0) 06/24/20 Unknown Urine RBC (Auto) 2.0 /HPF (0.0-6.0) 06/24/20 Unknown U Epithel Cells (Auto) 2.0 /HPF (0-13.0) 06/24/20 Unknown Urine Mucus Few /HPF 06/24/20 Unknown Urine Osmolality 333 Mosm/kg 06/24/20 Unknown Urine Sodium 38 mmol/L 06/24/20 Unknown Coronavirus (PCR) Negative (Negative) 06/22/20 08:54 Little/IV: Voiding Method Urinal Active Medications - Current Medications Current Medications: Generic Name Dose Route Start Last Admin Trade Name Freq PRN Reason Stop Dose Admin Acetaminophen 650 mg 06/17/20 15:20 06/23/20 21:22 Acetaminophen 325 Mg Tab PO 650 mg Q4H PRN Administration Pain MILD(1-3)/Fever >100.5/SHORT Albumin Human 25 gm 06/24/20 14:00 06/25/20 05:26 Albumin Human 25% (25 Gm/100 Ml) Inj IV 06/26/20 06:01 25 gm Q8HR ONELIA Administration Albuterol 2.5 mg 06/17/20 15:20 Albuterol 2.5 Mg/3 Ml Nebu IH Q3HRT PRN Shortness Of Breath Allopurinol 100 mg 06/18/20 10:00 06/24/20 09:04 Allopurinol 100 Mg Tab PO 100 mg DAILY ONELIA Administration Docusate Sodium 100 mg 06/21/20 10:00 06/24/20 22:24 Docusate Sodium 100 Mg Cap PO 100 mg BID ONELIA Administration Megestrol Acetate 400 mg 06/22/20 11:00 06/24/20 09:04 Megestrol 400 Mg/10 Ml Oral Liqd PO 400 mg QDAY ONELIA Administration Midodrine 10 mg 06/24/20 12:00 06/24/20 16:38 Midodrine 5 Mg Tab PO 10 mg TID@0800,1200,1600 ONELIA Administration Multivitamins/Iron 1 each 06/18/20 10:00 06/24/20 09:04 Fe Fumarate/Fa/Mv, Min Comb#15 Cap (Hemocyte Plus) PO 1 each QDAY ONELIA Administration Ondansetron HCl 4 mg 06/17/20 15:20 Ondansetron 4 Mg/2 Ml Inj IV Q8H PRN Nausea And Vomiting Pantoprazole Sodium 40 mg 06/18/20 07:30 06/24/20 08:11 Pantoprazole 40 Mg Tab PO 40 mg QDAC ONELIA Administration Sodium Bicarbonate 650 mg 06/17/20 20:00 06/24/20 20:35 Sodium Bicarbonate 650 Mg Tab PO 650 mg TID ONELIA Administration Sodium Chloride 10 ml 06/17/20 22:00 06/24/20 22:24 Sodium Chloride 0.9% 10 Ml Flush Syringe IV 10 ml BID ONELIA Administration Sodium Chloride 10 ml 06/17/20 15:20 Sodium Chloride 0.9% 10 Ml Flush Syringe IV PRN PRN LINE FLUSH Nutrition/Malnutrition Assess - Dietary Evaluation Nutrition/Malnutrition Findings: Nutrition Notes Start: 06/22/20 11:12 Freq: Status: Active Protocol: Document 06/24/20 09:20 AT (Rec: 06/24/20 09:31 AT [id number]) Co-Sign 06/24/20 09:20 CW Nutrition Notes Initial or Follow up Reassessment Current Diagnosis Acute Kidney Injury,CKD(stage I-IV) Other Pertinent Diagnosis Liver Cirrhosis, Debility, Ascites Current Diet Cardiac diet with mech soft modifications Labs/Tests Na 131 BUN 43 Cr 3.5 Ca 7.8 Pertinent Medications Colace Height 6 ft 3 in Weight 120.5 kg [place] Body Weight (kg) 89.09 BMI 33.2 Weight change and time frame Wt change noted. Pt was on lasix and has ascites. Weight Status Obese Subjective/Other Information Follow up for intakes and ONS tolerance. Per chart, pt has consumed 17% of meals on average over the course of 3 days. Pt reports consuming 100 % of ONS, but does not eat certain foods. Food preferences were recorded. Pt states that he has chewing difficulties due to dentition issues. Pt said he only started receiving mechanical soft meals last night, but will eat more if food is mechanically altered. Percent of energy/protein needs met: 65%/53% Burn Absent Trauma Absent GI Symptoms None Difficulty In Chewing Current % PO Fair (50-74%) Minimum of two criteria Yes Energy Intake (non-severe) <75% Estimated Energy Requirement >7 days Body Fat Depletion Mild depletion (non-severe) Muscle Mass Mild Depletion (non-severe) Fluid Accumulation Mild (non-severe) Reduced Gasket Former Strength Measurably Reduced (severe) #1 Nutrition Diagnosis Malnutrition Diagnosis Progress(for reassessment Continues documentation) Is patient on ventilator? No Is Patient Ambulatory and/or Out of Bed No REE-([place]-confined to bed) 2519.160 Kcal/Kg value to use for calculation 17 Approximate Energy Requirements Using 9 kcal/Kg Calculation Used for Recommendations Kcal/kg Additional Notes PRO needs: 84-158g (0.8-1.5 g/ kg AdBW 105kg for multiple conditions) Fluid needs: 1 mL/kcal or per MD Nutrition Intervention Change Diet Order: Mechanical Soft - Cardiac diet Add Supplement/Snack (indicate name/kcal [place] BID /protein ) Provides kCal: 850 Provides Protein (gm) 38 Goal #1 Meet at least 75% of EER and protein needs via diet and ONS Anticipated Discharge Needs: Cardiac diet, mechanically altered Follow-Up By: 06/28/20 Additional Comments F/U for improved intakes
[2020-06-25 07:49] LABS: Basophils % (Auto) 0.3 % (0.0-1.8); Eosinophils # (Auto) 0.1 K/mm3 (0.0-0.4); Eosinophils % (Auto) 1.9 % (0.0-4.3); Hematocrit 23.6 % (35.5-45.6); Lymphocytes # (Auto) 1.1 K/mm3 (1.2-5.4); Lymphocytes % (Auto) 19.2 % (13.4-35.0); Mean Corpuscular HGB Conc 34 % (32-34); Mean Corpuscular Volume 114 fl (84-94); Monocytes # (Auto) 0.6 K/mm3 (0.0-0.8); Monocytes % (Auto) 9.7 % (0.0-7.3); Platelet Count 107 K/mm3 (140-440); Red Blood Count 2.08 M/mm3 (3.65-5.03); Red Cell Distribution Width 13.8 % (13.2-15.2)
[2020-06-25 08:14] LABS: Albumin 2.4 g/dL (3.9-5); Calcium 8.4 mg/dL (8.4-10.2)
[2020-06-25] MEDS: MIDODRINE 5 MG TAB PO SCH ×3 (09:38→17:32)
[2020-06-25] MEDS: PANTOPRAZOLE 40 MG TAB PO SCH (09:38)
[2020-06-25] MEDS: FE FUMARATE/FA/MV, MIN COMB#15 CAP (HEMOCYTE PLUS) PO SCH (09:39)
[2020-06-25] MEDS: allopurinoL 100 MG TAB PO SCH (09:39)
[2020-06-25] MEDS: SODIUM BICARBONATE 650 MG TAB PO SCH ×3 (09:39→20:33)
[2020-06-25] MEDS: DOCUSATE SODIUM 100 MG CAP PO SCH ×2 (09:39→22:59)
[2020-06-25] MEDS: MEGESTROL 400 MG/10 ML ORAL LIQD PO SCH (09:39)
--- NOTE | 2020-06-25 09:55 | Progress Note ---
Assessment and Plan # Acute on Chronic Kidney Injury: baseline creatinine around 1.8-2.0. Creatinine was stable but increased to 2.9->3.3->3.5, slightly improved to 3.1 this AM, may be related to pre-renal injury in setting of liver disease and diuretic use (on lasix, spironolactone) with hypotension. Consider hepatorenal physiology if not improving with supportive measures; also may have increased abdominal pressure from ascites, now s/p paracentesis - continue to hold diuretics today - agree with midodrine for low BP, dose increased as he remains hypotensive - reviewed urine sodium/osm. Serum Albumin 2.1->2.4; consider IV albumin inf usion but hold for today - maintain MAP>65 as able - avoid nephrotoxins - renal ultrasound reviewed, atrophic left kidney noted, no acute obstruction - renally dose meds - continue NaHCO3 - urinalysis reviewed, no hematuria/proteinuria concerning for glomerular injury - no immediate indications for biopsy or renal replacement therapy - strict I/O if able # Hyponatremia: likely chronic due to liver disease (reviewed outpatient labs which shows baseline sodium around 132), stable at 134 today # Weakness: chronic, appreciate PT input # Chronic Liver Disease: hold diuretics for today # Ascites: restart diuretics once renal function more stable, BP stable, receives outpatient therapeutic paracentesis. S/p para 5/6 # Anemia in Chronic Illness: monitor, prbc transfusion prn Subjective Date of service: 06/25/20 Interval history: No acute changes noted this AM, did have paracentesis yesterday, working with PT Objective - Exam Narrative Exam: Constitutional: no acute distress, chronically frail appearing Head: NC/AT Neck: supple Lungs: clear to auscultation CV: RRR, no M/R/G Abdomen: soft, non-tender, bowel sounds present Back: nontender Extremities: minimal edema, pulses WNL Skin: intact Neuro: no focal deficits, alert and oriented x4 - Vital Signs Vital signs: Vital Signs - 12hr 06/25/20 05:32 Temperature 98.6 F Pulse Rate 65 Respiratory 20 Rate Blood Pressure 102/52 O2 Sat by Pulse 100 Oximetry - Lab 06/25/20 07:09 06/25/20 07:09 Most recent lab results Calcium 8.4 mg/dL (8.4-10.2) 06/25/20 07:09 Magnesium 1.50 mg/dL (1.7-2.3) L 06/17/20 11:05 Urine Sodium 38 mmol/L 06/24/20 Unknown Medications & Allergies - Medications Allergies/Adverse Reactions: Allergies No Known Allergies Allergy (Verified 06/06/14 15:35) Home Medications: Home Medications Medication Instructions Recorded Confirmed Last Taken Type Pantoprazole [Protonix TAB] 40 mg PO QDAY #30 tablet 09/21/15 06/18/20 06/08/20 Rx Sodium Bicarbonate 650 mg PO TID #90 tablet 09/21/15 06/18/20 06/08/20 Rx nadoloL [Corgard] 40 mg PO QDAY #30 tablet 09/21/15 06/18/20 06/08/20 Rx Furosemide [Lasix TAB] 40 mg PO QDAY 04/10/16 06/18/20 06/08/20 History Spironolactone [Aldactone] 50 mg PO BID 04/10/16 06/18/20 06/08/20 History allopurinoL [Zyloprim] 100 mg PO DAILY PRN 02/03/19 06/18/20 01/08/19 History 100 mg Iron Fum,Ps/Folic/Bcomp,C No.9 1 each PO DAILY 06/09/20 06/18/20 06/08/20 History [Integra Plus Capsule] Active Medications: Generic Name Dose Route Start Last Admin Trade Name Freq PRN Reason Stop Dose Admin Acetaminophen 650 mg 06/17/20 15:20 06/23/20 21:22 Acetaminophen 325 Mg Tab PO 650 mg Q4H PRN Administration Pain MILD(1-3)/Fever >100.5/SHORT Albumin Human 25 gm 06/24/20 14:00 06/25/20 05:26 Albumin Human 25% (25 Gm/100 Ml) Inj IV 06/26/20 06:01 25 gm Q8HR ONELIA Administration Albuterol 2.5 mg 06/17/20 15:20 Albuterol 2.5 Mg/3 Ml Nebu IH Q3HRT PRN Shortness Of Breath Allopurinol 100 mg 06/18/20 10:00 06/25/20 09:39 Allopurinol 100 Mg Tab PO 100 mg DAILY ONELIA Administration Docusate Sodium 100 mg 06/21/20 10:00 06/25/20 09:39 Docusate Sodium 100 Mg Cap PO 100 mg BID ONELIA Administration Megestrol Acetate 400 mg 06/22/20 11:00 06/25/20 09:39 Megestrol 400 Mg/10 Ml Oral Liqd PO 400 mg QDAY ONELIA Administration Midodrine 10 mg 06/24/20 12:00 06/25/20 09:38 Midodrine 5 Mg Tab PO 10 mg TID@0800,1200,1600 ONELIA Administration Multivitamins/Iron 1 each 06/18/20 10:00 06/25/20 09:39 Fe Fumarate/Fa/Mv, Min Comb#15 Cap (Hemocyte Plus) PO 1 each QDAY ONELIA Administration Ondansetron HCl 4 mg 06/17/20 15:20 Ondansetron 4 Mg/2 Ml Inj IV Q8H PRN Nausea And Vomiting Pantoprazole Sodium 40 mg 06/18/20 07:30 06/25/20 09:38 Pantoprazole 40 Mg Tab PO 40 mg QDAC ONELIA Administration Sodium Bicarbonate 650 mg 06/17/20 20:00 06/25/20 09:39 Sodium Bicarbonate 650 Mg Tab PO 650 mg TID ONELIA Administration Sodium Chloride 10 ml 06/17/20 22:00 06/25/20 09:40 Sodium Chloride 0.9% 10 Ml Flush Syringe IV 10 ml BID ONELIA Administration Sodium Chloride 10 ml 06/17/20 15:20 Sodium Chloride 0.9% 10 Ml Flush Syringe IV PRN PRN LINE FLUSH
[2020-06-26] MEDS: ALBUMIN HUMAN 25% (25 GM/100 ML) INJ IV SCH (06:00)
[2020-06-26 07:08] LABS: Calcium 8.5 mg/dL (8.4-10.2)
[2020-06-26] MEDS: PANTOPRAZOLE 40 MG TAB PO SCH (07:30)
[2020-06-26] MEDS: MIDODRINE 5 MG TAB PO SCH ×3 (08:00→16:00)
[2020-06-26] MEDS: SODIUM BICARBONATE 650 MG TAB PO SCH ×3 (08:00→21:53)
--- NOTE | 2020-06-26 08:27 | Progress Note ---
Assessment and Plan Assessment and plan: Acute on chronic renal insufficiency Supportive care, continue medical management, encourage free water intake, monitor urine output every shift, Debility Physical therapy consulted, supportive care. Chronic liver disease Supportive care, continue medical management. Ascites Supportive care, outpatient therapeutic paracentesis. DVT prophylaxis SCD to bilateral lower extremities while in bed. 06/18. I suspect pt has more chronic renal disease and is likely at baseline. Creatinine was 1.4 in 2017. Check renal US. PT eval. Anticipate d/c based on results 06/19. Physical therapy evaluation recommends subacute rehab. Await case management for placement. Follow-up renal ultrasound 06/20. Physical therapy evaluation recommends subacute rehab. Await case management for placement. Follow-up renal ultrasound 06/21. Renal ultrasound reveals borderline to mildly atrophic left kidney. Unremarkable right kidney. No focal renal lesion or hydronephrosis. Physical therapy recommends subacute rehab. Await placement. 06/22/2020; patient is acute on chronic kidney disease, patient has been follow with Dr. Grace before. Nephrology was consulted and said patient's worsening renal function is due to hypotension due to Lasix and spironolactone. Lasix and spironolactone held for today. PT OT evaluated and recommend subacute rehab. Patient was placed on Megace, nutritional consult, Ensure. Management plan was discussed with the patient and his daughter Anny over the phone and was in agreement with the plan of care. 06/23/2020; patient has still hypotension and I started on midodrine. Kidney function is worsening overnight nephrology is following. Nutrition consult. Patient will be discharged to subacute rehab. Nephrology consult appreciated. 06/24/2020; blood pressure still low and I increase midodrine. We will give him 250 mL of bolus. Renal function is worsening. Nephrology is following. 06/25/2020; patient had ultrasound-guided paracentesis yesterday and drained 12.5 L of straw-colored fluid. Blood pressure this morning is holding. Continue with midodrine. Continue with albumin. Nephrology is following. Morning labs are pending. 06/26/2020; kidney function is improving. Blood pressure is holding. Patient can be discharged to subacute rehab. History Interval history: Patient was seen and evaluated this morning Patient said he is feeling better Hospitalist Physical - Physical exam Narrative exam: Not in cardiopulmonary distress. The patient appeared well nourished and normally developed. Vital signs as documented. Head exam is unremarkable. No scleral icterus . Neck is without jugular venous distension, thyromegaly, or carotid bruits. Lungs are clear to auscultation. Cardiac exam reveals regular rate and Rhythm. Abdominal exam reveals normal bowel sounds, nontender, no organomegaly. Extremities are nonedematous and both femoral and pedal pulses are normal. 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 No focal weakness. - Constitutional Vitals: Temp Pulse Resp BP Pulse Ox 98.4 F 76 18 102/56 99 06/26/20 04:20 06/26/20 04:20 06/26/20 04:20 06/26/20 04:20 06/26/20 04:20 General appearance: Present: mild distress HEART Score - HEART Score Troponin: Troponin T 0.017 ng/mL (0.00-0.029) 06/17/20 13:02 Results - Labs CBC & Chem 7: 06/25/20 07:09 06/26/20 06:05 Labs: Laboratory Last Values WBC 5.8 K/mm3 (4.5-11.0) 06/25/20 07:09 RBC 2.08 M/mm3 (3.65-5.03) L 06/25/20 07:09 Hgb 8.0 gm/dl (11.8-15.2) L 06/25/20 07:09 Hct 23.6 % (35.5-45.6) L 06/25/20 07:09 MCV 114 fl (84-94) H 06/25/20 07:09 MCH 39 pg (28-32) H 06/25/20 07:09 MCHC 34 % (32-34) 06/25/20 07:09 RDW 13.8 % (13.2-15.2) 06/25/20 07:09 Plt Count 107 K/mm3 (140-440) L 06/25/20 07:09 Lymph % (Auto) 19.2 % (13.4-35.0) 06/25/20 07:09 [place] % (Auto) 9.7 % (0.0-7.3) H 06/25/20 07:09 Eos % (Auto) 1.9 % (0.0-4.3) 06/25/20 07:09 Baso % (Auto) 0.3 % (0.0-1.8) 06/25/20 07:09 Lymph # (Auto) 1.1 K/mm3 (1.2-5.4) L 06/25/20 07:09 [place] # (Auto) 0.6 K/mm3 (0.0-0.8) 06/25/20 07:09 Eos # (Auto) 0.1 K/mm3 (0.0-0.4) 06/25/20 07:09 Baso # (Auto) 0.0 K/mm3 (0.0-0.1) 06/25/20 07:09 Seg Neutrophils % 68.9 % (40.0-70.0) 06/25/20 07:09 Seg Neutrophils # 4.0 K/mm3 (1.8-7.7) 06/25/20 07:09 PT 16.5 Sec. (12.2-14.9) H 06/17/20 11:05 INR 1.33 (0.87-1.13) H 06/17/20 11:05 APTT 32.2 Sec. (24.2-36.6) 06/17/20 11:05 Sodium 137 mmol/L (137-145) 06/26/20 06:05 Potassium 4.2 mmol/L (3.6-5.0) 06/26/20 06:05 Chloride 101.0 mmol/L (98-107) 06/26/20 06:05 Carbon Dioxide 25 mmol/L (22-30) 06/26/20 06:05 Anion Gap 15 mmol/L 06/26/20 06:05 BUN 36 mg/dL (9-20) H 06/26/20 06:05 Creatinine 2.4 mg/dL (0.8-1.3) H 06/26/20 06:05 Estimated GFR 33 ml/min 06/26/20 06:05 BUN/Creatinine Ratio 15 % 06/26/20 06:05 Glucose 94 mg/dL (75-100) 06/26/20 06:05 POC Glucose 93 mg/dL (70-105) 06/17/20 22:41 Calcium 8.5 mg/dL (8.4-10.2) 06/26/20 06:05 Magnesium 1.50 mg/dL (1.7-2.3) L 06/17/20 11:05 Total Bilirubin 1.10 mg/dL (0.1-1.2) 06/25/20 07:09 AST 29 units/L (5-40) 06/25/20 07:09 ALT 7 units/L (7-56) 06/25/20 07:09 Alkaline Phosphatase 105 units/L (35-129) 06/25/20 07:09 Troponin T 0.017 ng/mL (0.00-0.029) 06/17/20 13:02 NT-Pro-B Natriuret Pep 635.9 pg/mL (0-900) 06/17/20 11:05 Total Protein 6.6 g/dL (6.3-8.2) 06/25/20 07:09 Albumin 2.4 g/dL (3.9-5) L 06/25/20 07:09 Albumin/Globulin Ratio 0.6 % 06/25/20 07:09 Urine Color Sravanthi (Yellow) 06/24/20 Unknown Urine Turbidity Hazy (Clear) 06/24/20 Unknown Urine pH 5.0 (5.0-7.0) 06/24/20 Unknown Ur Specific [place]olson 1.018 (1.003-1.030) 06/24/20 Unknown Urine Protein <15 mg/dl mg/dL (Negative) 06/24/20 Unknown Urine Glucose (UA) Neg mg/dL (Negative) 06/24/20 Unknown Urine Ketones Neg mg/dL (Negative) 06/24/20 Unknown Urine Blood Neg (Negative) 06/24/20 Unknown Urine Nitrite Neg (Negative) 06/24/20 Unknown Urine Bilirubin Neg (Negative) 06/24/20 Unknown Urine Urobilinogen 4.0 mg/dL (<2.0) 06/24/20 Unknown Ur Leukocyte Esterase Tr (Negative) 06/24/20 Unknown Urine WBC (Auto) 6.0 /HPF (0.0-6.0) 06/24/20 Unknown Urine RBC (Auto) 2.0 /HPF (0.0-6.0) 06/24/20 Unknown U Epithel Cells (Auto) 2.0 /HPF (0-13.0) 06/24/20 Unknown Urine Mucus Few /HPF 06/24/20 Unknown Urine Osmolality 333 Mosm/kg 06/24/20 Unknown Urine Sodium 38 mmol/L 06/24/20 Unknown Coronavirus (PCR) Negative (Negative) 06/22/20 08:54 Little/IV: Voiding Method Urinal Active Medications - Current Medications Current Medications: Generic Name Dose Route Start Last Admin Trade Name Freq PRN Reason Stop Dose Admin Acetaminophen 650 mg 06/17/20 15:20 06/23/20 21:22 Acetaminophen 325 Mg Tab PO 650 mg Q4H PRN Administration Pain MILD(1-3)/Fever >100.5/SHORT Albumin Human 25 gm 06/26/20 14:00 Albumin Human 25% (25 Gm/100 Ml) Inj IV 06/26/20 14:01 Q8HR ONELIA Albuterol 2.5 mg 06/17/20 15:20 Albuterol 2.5 Mg/3 Ml Nebu IH Q3HRT PRN Shortness Of Breath Allopurinol 100 mg 06/18/20 10:00 06/25/20 09:39 Allopurinol 100 Mg Tab PO 100 mg DAILY ONELIA Administration Docusate Sodium 100 mg 06/21/20 10:00 06/25/20 22:59 Docusate Sodium 100 Mg Cap PO 100 mg BID ONELIA Administration Megestrol Acetate 400 mg 06/22/20 11:00 06/25/20 09:39 Megestrol 400 Mg/10 Ml Oral Liqd PO 400 mg QDAY ONELIA Administration Midodrine 10 mg 06/24/20 12:00 06/25/20 17:32 Midodrine 5 Mg Tab PO 10 mg TID@0800,1200,1600 ONELIA Administration Multivitamins/Iron 1 each 06/18/20 10:00 06/25/20 09:39 Fe Fumarate/Fa/Mv, Min Comb#15 Cap (Hemocyte Plus) PO 1 each QDAY ONELIA Administration Ondansetron HCl 4 mg 06/17/20 15:20 Ondansetron 4 Mg/2 Ml Inj IV Q8H PRN Nausea And Vomiting Pantoprazole Sodium 40 mg 06/18/20 07:30 06/25/20 09:38 Pantoprazole 40 Mg Tab PO 40 mg QDAC ONELIA Administration Sodium Bicarbonate 650 mg 06/17/20 20:00 06/25/20 20:33 Sodium Bicarbonate 650 Mg Tab PO 650 mg TID ONELIA Administration Sodium Chloride 10 ml 06/17/20 22:00 06/25/20 22:59 Sodium Chloride 0.9% 10 Ml Flush Syringe IV 10 ml BID ONELIA Administration Sodium Chloride 10 ml 06/17/20 15:20 Sodium Chloride 0.9% 10 Ml Flush Syringe IV PRN PRN LINE FLUSH Nutrition/Malnutrition Assess - Dietary Evaluation Nutrition/Malnutrition Findings: Nutrition Notes Start: 06/22/20 11:12 Freq: Status: Active Protocol: Document 06/24/20 09:20 AT (Rec: 06/24/20 09:31 AT [id number]) Co-Sign 06/24/20 09:20 CW Nutrition Notes Initial or Follow up Reassessment Current Diagnosis Acute Kidney Injury,CKD(stage I-IV) Other Pertinent Diagnosis Liver Cirrhosis, Debility, Ascites Current Diet Cardiac diet with mech soft modifications Labs/Tests Na 131 BUN 43 Cr 3.5 Ca 7.8 Pertinent Medications Colace Height 6 ft 3 in Weight 120.5 kg [place] Body Weight (kg) 89.09 BMI 33.2 Weight change and time frame Wt change noted. Pt was on lasix and has ascites. Weight Status Obese Subjective/Other Information Follow up for intakes and ONS tolerance. Per chart, pt has consumed 17% of meals on average over the course of 3 days. Pt reports consuming 100 % of ONS, but does not eat certain foods. Food preferences were recorded. Pt states that he has chewing difficulties due to dentition issues. Pt said he only started receiving mechanical soft meals last night, but will eat more if food is mechanically altered. 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 No Is Patient Ambulatory and/or Out of Bed No REE-([facility]-confined to bed) 2519.160 Kcal/Kg value to use for calculation 17 Approximate Energy Requirements Using 9 kcal/Kg Calculation Used for Recommendations Kcal/kg Additional Notes PRO needs: 84-158g (0.8-1.5 g/ kg AdBW 105kg for multiple conditions) Fluid needs: 1 mL/kcal or per MD Nutrition Intervention Change Diet Order: Mechanical Soft - Cardiac diet Add Supplement/Snack (indicate name/kcal Nepro BID /protein ) Provides kCal: 850 Provides Protein (gm) 38 Goal #1 Meet at least 75% of EER and protein needs via diet and ONS Anticipated Discharge Needs: Cardiac diet, mechanically altered Follow-Up By: 06/28/20 Additional Comments F/U for improved intakes
[2020-06-26] MEDS: MEGESTROL 400 MG/10 ML ORAL LIQD PO SCH (09:08)
[2020-06-26] MEDS: DOCUSATE SODIUM 100 MG CAP PO SCH ×2 (09:09→21:53)
[2020-06-26] MEDS: allopurinoL 100 MG TAB PO SCH (09:10)
[2020-06-26] MEDS: FE FUMARATE/FA/MV, MIN COMB#15 CAP (HEMOCYTE PLUS) PO SCH (09:10)
--- NOTE | 2020-06-26 11:45 | Progress Note ---
Assessment and Plan # Acute on Chronic Kidney Injury: baseline creatinine around 1.8-2.0. Creatinine was stable but increased to 2.9->3.3->3.5, now improved to 3.1->2.4 this AM, may be related to pre-renal injury in setting of liver disease and diuretic use (on lasix, spironolactone) with hypotension. Consider hepatorenal physiology but less likely as now improving with supportive measures; also may have increased abdominal pressure from ascites, now s/p paracentesis - continue to hold diuretics for now - agree with midodrine for low BP, dose increased, continue on discharge - maintain MAP>65 as able - avoid nephrotoxins - renal ultrasound reviewed, atrophic left kidney noted, no acute obstruction - renally dose meds - continue NaHCO3 - urinalysis reviewed, no hematuria/proteinuria concerning for glomerular injury - no immediate indications for biopsy or renal replacement therapy - strict I/O if able # Hyponatremia: likely chronic due to liver disease (reviewed outpatient labs which shows baseline sodium around 132), stable at 137 today # Weakness: chronic, appreciate PT input # Chronic Liver Disease: hold diuretics for today # Ascites: restart diuretics once renal function more stable, BP stable, receives outpatient therapeutic paracentesis. S/p para 5/6 # Anemia in Chronic Illness: monitor, prbc transfusion prn Subjective Date of service: 06/26/20 Interval history: No acute changes noted this AM, resting in bed Objective - Exam Narrative Exam: Constitutional: no acute distress, chronically frail appearing Head: NC/AT Neck: supple Lungs: clear to auscultation CV: RRR, no M/R/G Abdomen: soft, non-tender, bowel sounds present Back: nontender Extremities: minimal edema, pulses WNL Skin: intact Neuro: no focal deficits, alert and oriented x4 - Vital Signs Vital signs: Vital Signs - 12hr 06/26/20 04:20 Temperature 98.4 F Pulse Rate 76 Respiratory 18 Rate Blood Pressure 102/56 O2 Sat by Pulse 99 Oximetry - Lab 06/25/20 07:09 06/26/20 06:05 Most recent lab results Calcium 8.5 mg/dL (8.4-10.2) 06/26/20 06:05 Magnesium 1.50 mg/dL (1.7-2.3) L 06/17/20 11:05 Urine Sodium 38 mmol/L 06/24/20 Unknown Medications & Allergies - Medications Allergies/Adverse Reactions: Allergies No Known Allergies Allergy (Verified 06/06/14 15:35) Home Medications: Home Medications Medication Instructions Recorded Confirmed Last Taken Type Pantoprazole [Protonix TAB] 40 mg PO QDAY #30 tablet 09/21/15 06/18/20 06/08/20 Rx Sodium Bicarbonate 650 mg PO TID #90 tablet 09/21/15 06/18/20 06/08/20 Rx nadoloL [Corgard] 40 mg PO QDAY #30 tablet 09/21/15 06/18/20 06/08/20 Rx Furosemide [Lasix TAB] 40 mg PO QDAY 04/10/16 06/18/20 06/08/20 History Spironolactone [Aldactone] 50 mg PO BID 04/10/16 06/18/20 06/08/20 History allopurinoL [Zyloprim] 100 mg PO DAILY PRN 02/03/19 06/18/20 01/08/19 History 100 mg Iron Fum,Ps/Folic/Bcomp,C No.9 1 each PO DAILY 06/09/20 06/18/20 06/08/20 History [Integra Plus Capsule] Active Medications: Generic Name Dose Route Start Last Admin Trade Name Freq PRN Reason Stop Dose Admin Acetaminophen 650 mg 06/17/20 15:20 06/23/20 21:22 Acetaminophen 325 Mg Tab PO 650 mg Q4H PRN Administration Pain MILD(1-3)/Fever >100.5/SHORT Albumin Human 25 gm 06/26/20 14:00 Albumin Human 25% (25 Gm/100 Ml) Inj IV 06/26/20 14:01 Q8HR ONELIA Albuterol 2.5 mg 06/17/20 15:20 Albuterol 2.5 Mg/3 Ml Nebu IH Q3HRT PRN Shortness Of Breath Allopurinol 100 mg 06/18/20 10:00 06/26/20 09:10 Allopurinol 100 Mg Tab PO 100 mg DAILY ONELIA Administration Docusate Sodium 100 mg 06/21/20 10:00 06/26/20 09:09 Docusate Sodium 100 Mg Cap PO 100 mg BID ONELIA Administration Megestrol Acetate 400 mg 06/22/20 11:00 06/26/20 09:08 Megestrol 400 Mg/10 Ml Oral Liqd PO 400 mg QDAY ONELIA Administration Midodrine 10 mg 06/24/20 12:00 06/26/20 08:00 Midodrine 5 Mg Tab PO 10 mg TID@0800,1200,1600 ONELIA Administration Multivitamins/Iron 1 each 06/18/20 10:00 06/26/20 09:10 Fe Fumarate/Fa/Mv, Min Comb#15 Cap (Hemocyte Plus) PO 1 each QDAY ONELIA Administration Ondansetron HCl 4 mg 06/17/20 15:20 Ondansetron 4 Mg/2 Ml Inj IV Q8H PRN Nausea And Vomiting Pantoprazole Sodium 40 mg 06/18/20 07:30 06/26/20 07:30 Pantoprazole 40 Mg Tab PO 40 mg QDAC ONELIA Administration Sodium Bicarbonate 650 mg 06/17/20 20:00 06/26/20 08:00 Sodium Bicarbonate 650 Mg Tab PO 650 mg TID ONELIA Administration Sodium Chloride 10 ml 06/17/20 22:00 06/26/20 09:10 Sodium Chloride 0.9% 10 Ml Flush Syringe IV 10 ml BID ONELIA Administration Sodium Chloride 10 ml 06/17/20 15:20 Sodium Chloride 0.9% 10 Ml Flush Syringe IV PRN PRN LINE FLUSH
[2020-06-26] MEDS ORDERED: ALBUMIN HUMAN 25% (25 GM/100 ML) INJ IV SCH (14:00)
[2020-06-27] MEDS: PANTOPRAZOLE 40 MG TAB PO SCH (07:30)
[2020-06-27 07:49] LABS: Calcium 8.7 mg/dL (8.4-10.2)
[2020-06-27] MEDS: SODIUM BICARBONATE 650 MG TAB PO SCH ×3 (08:00→21:57)
[2020-06-27] MEDS: MIDODRINE 5 MG TAB PO SCH ×3 (08:00→16:00)
--- NOTE | 2020-06-27 09:24 | Progress Note ---
Assessment and Plan Assessment and plan: Acute on chronic renal insufficiency Supportive care, continue medical management, encourage free water intake, monitor urine output every shift, Debility Physical therapy consulted, supportive care. Chronic liver disease Supportive care, continue medical management. Ascites Supportive care, outpatient therapeutic paracentesis. DVT prophylaxis SCD to bilateral lower extremities while in bed. 06/18. I suspect pt has more chronic renal disease and is likely at baseline. Creatinine was 1.4 in 2017. Check renal US. PT eval. Anticipate d/c based on results 06/19. Physical therapy evaluation recommends subacute rehab. Await case management for placement. Follow-up renal ultrasound 06/20. Physical therapy evaluation recommends subacute rehab. Await case management for placement. Follow-up renal ultrasound 06/21. Renal ultrasound reveals borderline to mildly atrophic left kidney. Unremarkable right kidney. No focal renal lesion or hydronephrosis. Physical therapy recommends subacute rehab. Await placement. 06/22/2020; patient is acute on chronic kidney disease, patient has been follow with Dr. Grace before. Nephrology was consulted and said patient's worsening renal function is due to hypotension due to Lasix and spironolactone. Lasix and spironolactone held for today. PT OT evaluated and recommend subacute rehab. Patient was placed on Megace, nutritional consult, Ensure. Management plan was discussed with the patient and his daughter Anny over the phone and was in agreement with the plan of care. 06/23/2020; patient has still hypotension and I started on midodrine. Kidney function is worsening overnight nephrology is following. Nutrition consult. Patient will be discharged to subacute rehab. Nephrology consult appreciated. 06/24/2020; blood pressure still low and I increase midodrine. We will give him 250 mL of bolus. Renal function is worsening. Nephrology is following. 06/25/2020; patient had ultrasound-guided paracentesis yesterday and drained 12.5 L of straw-colored fluid. Blood pressure this morning is holding. Continue with midodrine. Continue with albumin. Nephrology is following. Morning labs are pending. 06/26/2020; kidney function is improving. Blood pressure is holding. Patient can be discharged to subacute rehab. 06/27/2020; kidney function is improving, potassium is normal. Blood pressure is holding. Discharged to subacute rehab. History Interval history: Patient was seen and evaluated this morning Patient said he is feeling better Hospitalist Physical - Physical exam Narrative exam: Not in cardiopulmonary distress. The patient appeared well nourished and normally developed. Vital signs as documented. Head exam is unremarkable. No scleral icterus . Neck is without jugular venous distension, thyromegaly, or carotid bruits. Lungs are clear to auscultation. Cardiac exam reveals regular rate and Rhythm. Abdominal exam reveals normal bowel sounds, nontender, no organomegaly. Extremities are nonedematous and both femoral and pedal pulses are normal. 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 No focal weakness. - Constitutional Vitals: Temp Pulse Resp BP Pulse Ox 98.8 F 76 18 114/58 95 06/27/20 07:11 06/27/20 07:11 06/27/20 07:11 06/27/20 07:11 06/27/20 07:11 General appearance: Present: mild distress HEART Score - HEART Score Troponin: Troponin T 0.017 ng/mL (0.00-0.029) 06/17/20 13:02 Results - Labs CBC & Chem 7: 06/25/20 07:09 06/27/20 06:01 Labs: Laboratory Last Values WBC 5.8 K/mm3 (4.5-11.0) 06/25/20 07:09 RBC 2.08 M/mm3 (3.65-5.03) L 06/25/20 07:09 Hgb 8.0 gm/dl (11.8-15.2) L 06/25/20 07:09 Hct 23.6 % (35.5-45.6) L 06/25/20 07:09 MCV 114 fl (84-94) H 06/25/20 07:09 MCH 39 pg (28-32) H 06/25/20 07:09 MCHC 34 % (32-34) 06/25/20 07:09 RDW 13.8 % (13.2-15.2) 06/25/20 07:09 Plt Count 107 K/mm3 (140-440) L 06/25/20 07:09 Lymph % (Auto) 19.2 % (13.4-35.0) 06/25/20 07:09 [place] % (Auto) 9.7 % (0.0-7.3) H 06/25/20 07:09 Eos % (Auto) 1.9 % (0.0-4.3) 06/25/20 07:09 Baso % (Auto) 0.3 % (0.0-1.8) 06/25/20 07:09 Lymph # (Auto) 1.1 K/mm3 (1.2-5.4) L 06/25/20 07:09 [place] # (Auto) 0.6 K/mm3 (0.0-0.8) 06/25/20 07:09 Eos # (Auto) 0.1 K/mm3 (0.0-0.4) 06/25/20 07:09 Baso # (Auto) 0.0 K/mm3 (0.0-0.1) 06/25/20 07:09 Seg Neutrophils % 68.9 % (40.0-70.0) 06/25/20 07:09 Seg Neutrophils # 4.0 K/mm3 (1.8-7.7) 06/25/20 07:09 PT 16.5 Sec. (12.2-14.9) H 06/17/20 11:05 INR 1.33 (0.87-1.13) H 06/17/20 11:05 APTT 32.2 Sec. (24.2-36.6) 06/17/20 11:05 Sodium 136 mmol/L (137-145) L 06/27/20 06:01 Potassium 3.8 mmol/L (3.6-5.0) 06/27/20 06:01 Chloride 102.2 mmol/L (98-107) 06/27/20 06:01 Carbon Dioxide 25 mmol/L (22-30) 06/27/20 06:01 Anion Gap 13 mmol/L 06/27/20 06:01 BUN 30 mg/dL (9-20) H 06/27/20 06:01 Creatinine 2.0 mg/dL (0.8-1.3) H 06/27/20 06:01 Estimated GFR 41 ml/min 06/27/20 06:01 BUN/Creatinine Ratio 15 % 06/27/20 06:01 Glucose 107 mg/dL (75-100) H 06/27/20 06:01 POC Glucose 93 mg/dL (70-105) 06/17/20 22:41 Calcium 8.7 mg/dL (8.4-10.2) 06/27/20 06:01 Magnesium 1.50 mg/dL (1.7-2.3) L 06/17/20 11:05 Total Bilirubin 1.10 mg/dL (0.1-1.2) 06/25/20 07:09 AST 29 units/L (5-40) 06/25/20 07:09 ALT 7 units/L (7-56) 06/25/20 07:09 Alkaline Phosphatase 105 units/L (35-129) 06/25/20 07:09 Troponin T 0.017 ng/mL (0.00-0.029) 06/17/20 13:02 NT-Pro-B Natriuret Pep 635.9 pg/mL (0-900) 06/17/20 11:05 Total Protein 6.6 g/dL (6.3-8.2) 06/25/20 07:09 Albumin 2.4 g/dL (3.9-5) L 06/25/20 07:09 Albumin/Globulin Ratio 0.6 % 06/25/20 07:09 Urine Color Sravanthi (Yellow) 06/24/20 Unknown Urine Turbidity Hazy (Clear) 06/24/20 Unknown Urine pH 5.0 (5.0-7.0) 06/24/20 Unknown Ur Specific [place] 1.018 (1.003-1.030) 06/24/20 Unknown Urine Protein <15 mg/dl mg/dL (Negative) 06/24/20 Unknown Urine Glucose (UA) Neg mg/dL (Negative) 06/24/20 Unknown Urine Ketones Neg mg/dL (Negative) 06/24/20 Unknown Urine Blood Neg (Negative) 06/24/20 Unknown Urine Nitrite Neg (Negative) 06/24/20 Unknown Urine Bilirubin Neg (Negative) 06/24/20 Unknown Urine Urobilinogen 4.0 mg/dL (<2.0) 06/24/20 Unknown Ur Leukocyte Esterase Tr (Negative) 06/24/20 Unknown Urine WBC (Auto) 6.0 /HPF (0.0-6.0) 06/24/20 Unknown Urine RBC (Auto) 2.0 /HPF (0.0-6.0) 06/24/20 Unknown U Epithel Cells (Auto) 2.0 /HPF (0-13.0) 06/24/20 Unknown Urine Mucus Few /HPF 06/24/20 Unknown Urine Osmolality 333 Mosm/kg 06/24/20 Unknown Urine Sodium 38 mmol/L 06/24/20 Unknown Coronavirus (PCR) Negative (Negative) 06/22/20 08:54 Little/IV: Voiding Method Urinal Active Medications - Current Medications Current Medications: Generic Name Dose Route Start Last Admin Trade Name Freq PRN Reason Stop Dose Admin Acetaminophen 650 mg 06/17/20 15:20 06/23/20 21:22 Acetaminophen 325 Mg Tab PO 650 mg Q4H PRN Administration Pain MILD(1-3)/Fever >100.5/SHORT Albuterol 2.5 mg 06/17/20 15:20 Albuterol 2.5 Mg/3 Ml Nebu IH Q3HRT PRN Shortness Of Breath Allopurinol 100 mg 06/18/20 10:00 06/26/20 09:10 Allopurinol 100 Mg Tab PO 100 mg DAILY ONELIA Administration Docusate Sodium 100 mg 06/21/20 10:00 06/26/20 21:53 Docusate Sodium 100 Mg Cap PO 100 mg BID ONELIA Administration Megestrol Acetate 400 mg 06/22/20 11:00 06/26/20 09:08 Megestrol 400 Mg/10 Ml Oral Liqd PO 400 mg QDAY ONELIA Administration Midodrine 10 mg 06/24/20 12:00 06/26/20 16:00 Midodrine 5 Mg Tab PO 10 mg TID@0800,1200,1600 ONELIA Administration Multivitamins/Iron 1 each 06/18/20 10:00 06/26/20 09:10 Fe Fumarate/Fa/Mv, Min Comb#15 Cap (Hemocyte Plus) PO 1 each QDAY ONELIA Administration Ondansetron HCl 4 mg 06/17/20 15:20 Ondansetron 4 Mg/2 Ml Inj IV Q8H PRN Nausea And Vomiting Pantoprazole Sodium 40 mg 06/18/20 07:30 06/26/20 07:30 Pantoprazole 40 Mg Tab PO 40 mg QDAC ONELIA Administration Sodium Bicarbonate 650 mg 06/17/20 20:00 06/26/20 21:53 Sodium Bicarbonate 650 Mg Tab PO 650 mg TID ONELIA Administration Sodium Chloride 10 ml 06/17/20 22:00 06/26/20 21:53 Sodium Chloride 0.9% 10 Ml Flush Syringe IV 10 ml BID ONELIA Administration Sodium Chloride 10 ml 06/17/20 15:20 Sodium Chloride 0.9% 10 Ml Flush Syringe IV PRN PRN LINE FLUSH Nutrition/Malnutrition Assess - Dietary Evaluation Nutrition/Malnutrition Findings: Nutrition Notes Start: 06/22/20 11:12 Freq: Status: Active Protocol: Document 06/24/20 09:20 AT (Rec: 06/24/20 09:31 AT [id number]) Co-Sign 06/24/20 09:20 CW Nutrition Notes Initial or Follow up Reassessment Current Diagnosis Acute Kidney Injury,CKD(stage I-IV) Other Pertinent Diagnosis Liver Cirrhosis, Debility, Ascites Current Diet Cardiac diet with mech soft modifications Labs/Tests Na 131 BUN 43 Cr 3.5 Ca 7.8 Pertinent Medications Colace Height 6 ft 3 in Weight 120.5 kg [place] Body Weight (kg) 89.09 BMI 33.2 Weight change and time frame Wt change noted. Pt was on lasix and has ascites. Weight Status Obese Subjective/Other Information Follow up for intakes and ONS tolerance. Per chart, pt has consumed 17% of meals on average over the course of 3 days. Pt reports consuming 100 % of ONS, but does not eat certain foods. Food preferences were recorded. Pt states that he has chewing difficulties due to dentition issues. Pt said he only started receiving mechanical soft meals last night, but will eat more if food is mechanically altered. Percent of energy/protein needs met: 65%/53% Burn Absent Trauma Absent GI Symptoms None Difficulty In Chewing Current % PO Fair (50-74%) Minimum of two criteria Yes Energy Intake (non-severe) <75% Estimated Energy Requirement >7 days Body Fat Depletion Mild depletion (non-severe) Muscle Mass Mild Depletion (non-severe) Fluid Accumulation Mild (non-severe) Reduced Pharmacy Services Representative Strength Measurably Reduced (severe) #1 Nutrition Diagnosis Malnutrition Diagnosis Progress(for reassessment Continues documentation) Is patient on ventilator? No Is Patient Ambulatory and/or Out of Bed No REE-([place]-confined to bed) 2519.160 Kcal/Kg value to use for calculation 17 Approximate Energy Requirements Using 2049 kcal/Kg Calculation Used for Recommendations Kcal/kg Additional Notes PRO needs: 84-158g (0.8-1.5 g/ kg AdBW 105kg for multiple conditions) Fluid needs: 1 mL/kcal or per MD Nutrition Intervention Change Diet Order: Mechanical Soft - Cardiac diet Add Supplement/Snack (indicate name/kcal Nepro BID /protein ) Provides kCal: 850 Provides Protein (gm) 38 Goal #1 Meet at least 75% of EER and protein needs via diet and ONS Anticipated Discharge Needs: Cardiac diet, mechanically altered Follow-Up By: 06/28/20 Additional Comments F/U for improved intakes
[2020-06-27] MEDS: DOCUSATE SODIUM 100 MG CAP PO SCH ×2 (09:36→21:56)
[2020-06-27] MEDS: MEGESTROL 400 MG/10 ML ORAL LIQD PO SCH (09:36)
[2020-06-27] MEDS: allopurinoL 100 MG TAB PO SCH (09:40)
[2020-06-27] MEDS: FE FUMARATE/FA/MV, MIN COMB#15 CAP (HEMOCYTE PLUS) PO SCH (09:41)
--- NOTE | 2020-06-27 14:58 | Progress Note ---
Assessment and Plan # Acute on Chronic Kidney Injury: baseline creatinine around 1.8-2.0. Creatinine was stable but increased to 2.9->3.3->3.5, now improved to 3.1->2.4->2.0 this AM, may be related to pre-renal injury in setting of liver disease and diuretic use (on lasix, spironolactone) with hypotension. Consider hepatorenal physiology but less likely as now improving with supportive measures; also may have increased abdominal pressure from ascites, now s/p paracentesis - continue to hold diuretics for now as he remains fairly euvolemic - agree with midodrine for low BP, dose increased, continue on discharge - maintain MAP>65 as able - avoid nephrotoxins - renal ultrasound reviewed, atrophic left kidney noted, no acute obstruction - renally dose meds - continue NaHCO3 - urinalysis reviewed, no hematuria/proteinuria concerning for glomerular injury - no immediate indications for biopsy or renal replacement therapy - strict I/O if able # Hyponatremia: likely chronic due to liver disease (reviewed outpatient labs which shows baseline sodium around 132), stable at 136 today # Weakness: chronic, appreciate PT input # Chronic Liver Disease: hold diuretics for today # Ascites: restart diuretics once renal function more stable, BP stable, receives outpatient therapeutic paracentesis. S/p para 5/6 # Anemia in Chronic Illness: monitor, prbc transfusion prn Subjective Date of service: 06/27/20 Interval history: No acute changes noted this afternoon, resting in bed Objective - Exam Narrative Exam: Constitutional: no acute distress, chronically frail appearing Head: NC/AT Neck: supple Lungs: clear to auscultation CV: RRR, no M/R/G Abdomen: soft, non-tender, bowel sounds present Back: nontender Extremities: minimal edema, pulses WNL Skin: intact Neuro: no focal deficits, alert and oriented x4 - Vital Signs Vital signs: Vital Signs - 12hr 06/27/20 06/27/20 07:11 11:16 Temperature 98.8 F 99.0 F Pulse Rate 76 75 Respiratory 18 16 Rate Blood Pressure 119/62 Blood Pressure 114/58 [Left] O2 Sat by Pulse 95 99 Oximetry - Lab 06/25/20 07:09 06/27/20 06:01 Most recent lab results Calcium 8.7 mg/dL (8.4-10.2) 06/27/20 06:01 Magnesium 1.50 mg/dL (1.7-2.3) L 06/17/20 11:05 Urine Sodium 38 mmol/L 06/24/20 Unknown Medications & Allergies - Medications Allergies/Adverse Reactions: Allergies No Known Allergies Allergy (Verified 06/06/14 15:35) Home Medications: Home Medications Medication Instructions Recorded Confirmed Last Taken Type Pantoprazole [Protonix TAB] 40 mg PO QDAY #30 tablet 09/21/15 06/18/20 06/08/20 Rx Sodium Bicarbonate 650 mg PO TID #90 tablet 09/21/15 06/18/20 06/08/20 Rx nadoloL [Corgard] 40 mg PO QDAY #30 tablet 09/21/15 06/18/20 06/08/20 Rx Furosemide [Lasix TAB] 40 mg PO QDAY 04/10/16 06/18/20 06/08/20 History Spironolactone [Aldactone] 50 mg PO BID 04/10/16 06/18/20 06/08/20 History allopurinoL [Zyloprim] 100 mg PO DAILY PRN 02/03/19 06/18/20 01/08/19 History 100 mg Iron Fum,Ps/Folic/Bcomp,C No.9 1 each PO DAILY 06/09/20 06/18/20 06/08/20 History [Integra Plus Capsule] Active Medications: Generic Name Dose Route Start Last Admin Trade Name Freq PRN Reason Stop Dose Admin Acetaminophen 650 mg 06/17/20 15:20 06/23/20 21:22 Acetaminophen 325 Mg Tab PO 650 mg Q4H PRN Administration Pain MILD(1-3)/Fever >100.5/SHORT Albuterol 2.5 mg 06/17/20 15:20 Albuterol 2.5 Mg/3 Ml Nebu IH Q3HRT PRN Shortness Of Breath Allopurinol 100 mg 06/18/20 10:00 06/27/20 09:40 Allopurinol 100 Mg Tab PO 100 mg DAILY ONELIA Administration Docusate Sodium 100 mg 06/21/20 10:00 06/27/20 09:36 Docusate Sodium 100 Mg Cap PO 100 mg BID ONELIA Administration Megestrol Acetate 400 mg 06/22/20 11:00 06/27/20 09:36 Megestrol 400 Mg/10 Ml Oral Liqd PO 400 mg QDAY ONELIA Administration Midodrine 10 mg 06/24/20 12:00 06/27/20 12:00 Midodrine 5 Mg Tab PO 10 mg TID@0800,1200,1600 ONELIA Administration Multivitamins/Iron 1 each 06/18/20 10:00 06/27/20 09:41 Fe Fumarate/Fa/Mv, Min Comb#15 Cap (Hemocyte Plus) PO 1 each QDAY ONELIA Administration Ondansetron HCl 4 mg 06/17/20 15:20 Ondansetron 4 Mg/2 Ml Inj IV Q8H PRN Nausea And Vomiting Pantoprazole Sodium 40 mg 06/18/20 07:30 06/27/20 07:30 Pantoprazole 40 Mg Tab PO 40 mg QDAC ONELIA Administration Sodium Bicarbonate 650 mg 06/17/20 20:00 06/27/20 13:37 Sodium Bicarbonate 650 Mg Tab PO 650 mg TID ONELIA Administration Sodium Chloride 10 ml 06/17/20 22:00 06/27/20 09:41 Sodium Chloride 0.9% 10 Ml Flush Syringe IV 10 ml BID ONELIA Administration Sodium Chloride 10 ml 06/17/20 15:20 Sodium Chloride 0.9% 10 Ml Flush Syringe IV PRN PRN LINE FLUSH
[2020-06-28 07:00] LABS: Calcium 8.8 mg/dL (8.4-10.2)
[2020-06-28] MEDS: MIDODRINE 5 MG TAB PO SCH ×3 (11:32→17:20)
[2020-06-28] MEDS: MEGESTROL 400 MG/10 ML ORAL LIQD PO SCH (11:33)
[2020-06-28] MEDS: allopurinoL 100 MG TAB PO SCH (11:33)
[2020-06-28] MEDS: DOCUSATE SODIUM 100 MG CAP PO SCH (11:33)
[2020-06-28] MEDS: PANTOPRAZOLE 40 MG TAB PO SCH (11:33)
[2020-06-28] MEDS: SODIUM BICARBONATE 650 MG TAB PO SCH ×2 (11:35→17:20)
--- NOTE | 2020-06-28 12:06 | Progress Note ---
Assessment and Plan Assessment and plan: Acute on chronic renal insufficiency Supportive care, continue medical management, encourage free water intake, monitor urine output every shift, Debility Physical therapy consulted, supportive care. Chronic liver disease Supportive care, continue medical management. Ascites Supportive care, outpatient therapeutic paracentesis. Thrombcytopenia DVT prophylaxis SCD to bilateral lower extremities while in bed. 06/18. I suspect pt has more chronic renal disease and is likely at baseline. Creatinine was 1.4 in 2017. Check renal US. PT eval. Anticipate d/c based on results 06/19. Physical therapy evaluation recommends subacute rehab. Await case management for placement. Follow-up renal ultrasound 06/20. Physical therapy evaluation recommends subacute rehab. Await case man agement for placement. Follow-up renal ultrasound 06/21. Renal ultrasound reveals borderline to mildly atrophic left kidney. Unremarkable right kidney. No focal renal lesion or hydronephrosis. Physical therapy recommends subacute rehab. Await placement. 06/22/2020; patient is acute on chronic kidney disease, patient has been follow with Dr. Grace before. Nephrology was consulted and said patient's worsening renal function is due to hypotension due to Lasix and spironolactone. Lasix and spironolactone held for today. PT OT evaluated and recommend subacute rehab. Patient was placed on Megace, nutritional consult, Ensure. Management plan was discussed with the patient and his daughter Anny over the phone and was in agreement with the plan of care. 06/23/2020; patient has still hypotension and I started on midodrine. Kidney function is worsening overnight nephrology is following. Nutrition consult. Patient will be discharged to subacute rehab. Nephrology consult appreciated. 06/24/2020; blood pressure still low and I increase midodrine. We will give him 250 mL of bolus. Renal function is worsening. Nephrology is following. 06/25/2020; patient had ultrasound-guided paracentesis yesterday and drained 12.5 L of straw-colored fluid. Blood pressure this morning is holding. Continue with midodrine. Continue with albumin. Nephrology is following. Morning labs are pending. 06/26/2020; kidney function is improving. Blood pressure is holding. Patient can be discharged to subacute rehab. 06/27/2020; kidney function is improving, potassium is normal. Blood pressure is holding. Discharged to subacute rehab. 06/28/20: Patient seen and examined resting comfortably no new complaints I did discuss with the daughter this morning we are awaiting accepting facility for patient to be transferred. History Interval history: Patient was seen and evaluated this morning Patient said he is feeling better Hospitalist Physical - Physical exam Narrative exam: Not in cardiopulmonary distress. The patient appeared well nourished and normally developed. Vital signs as documented. Head exam is unremarkable. No scleral icterus . Neck is without jugular venous distension, thyromegaly, or carotid bruits. Lungs are clear to auscultation. Cardiac exam reveals regular rate and Rhythm. Abdominal exam reveals normal bowel sounds, nontender, no organomegaly. Extremities are nonedematous and both femoral and pedal pulses are normal. TREE EXPERT: Alert and oriented 3. No focal weakness. - Constitutional Vitals: Temp Pulse Resp BP Pulse Ox 98.8 F 76 16 109/67 100 06/28/20 11:05 06/28/20 11:05 06/28/20 11:05 06/28/20 11:05 06/28/20 11:05 General appearance: Present: mild distress HEART Score - HEART Score Troponin: Troponin T 0.017 ng/mL (0.00-0.029) 06/17/20 13:02 Results - Labs CBC & Chem 7: 06/25/20 07:09 06/28/20 05:48 Labs: Laboratory Last Values WBC 5.8 K/mm3 (4.5-11.0) 06/25/20 07:09 RBC 2.08 M/mm3 (3.65-5.03) L 06/25/20 07:09 Hgb 8.0 gm/dl (11.8-15.2) L 06/25/20 07:09 Hct 23.6 % (35.5-45.6) L 06/25/20 07:09 MCV 114 fl (84-94) H 06/25/20 07:09 MCH 39 pg (28-32) H 06/25/20 07:09 MCHC 34 % (32-34) 06/25/20 07:09 RDW 13.8 % (13.2-15.2) 06/25/20 07:09 Plt Count 107 K/mm3 (140-440) L 06/25/20 07:09 Lymph % (Auto) 19.2 % (13.4-35.0) 06/25/20 07:09 [place] % (Auto) 9.7 % (0.0-7.3) H 06/25/20 07:09 Eos % (Auto) 1.9 % (0.0-4.3) 06/25/20 07:09 Baso % (Auto) 0.3 % (0.0-1.8) 06/25/20 07:09 Lymph # (Auto) 1.1 K/mm3 (1.2-5.4) L 06/25/20 07:09 [place] # (Auto) 0.6 K/mm3 (0.0-0.8) 06/25/20 07:09 Eos # (Auto) 0.1 K/mm3 (0.0-0.4) 06/25/20 07:09 Baso # (Auto) 0.0 K/mm3 (0.0-0.1) 06/25/20 07:09 Seg Neutrophils % 68.9 % (40.0-70.0) 06/25/20 07:09 Seg Neutrophils # 4.0 K/mm3 (1.8-7.7) 06/25/20 07:09 PT 16.5 Sec. (12.2-14.9) H 06/17/20 11:05 INR 1.33 (0.87-1.13) H 06/17/20 11:05 APTT 32.2 Sec. (24.2-36.6) 06/17/20 11:05 Sodium 136 mmol/L (137-145) L 06/28/20 05:48 Potassium 3.8 mmol/L (3.6-5.0) 06/28/20 05:48 Chloride 101.3 mmol/L (98-107) 06/28/20 05:48 Carbon Dioxide 23 mmol/L (22-30) 06/28/20 05:48 Anion Gap 16 mmol/L 06/28/20 05:48 BUN 28 mg/dL (9-20) H 06/28/20 05:48 Creatinine 1.8 mg/dL (0.8-1.3) H 06/28/20 05:48 Estimated GFR 47 ml/min 06/28/20 05:48 BUN/Creatinine Ratio 16 % 06/28/20 05:48 Glucose 102 mg/dL (75-100) H 06/28/20 05:48 POC Glucose 93 mg/dL (70-105) 06/17/20 22:41 Calcium 8.8 mg/dL (8.4-10.2) 06/28/20 05:48 Magnesium 1.50 mg/dL (1.7-2.3) L 06/17/20 11:05 Total Bilirubin 1.10 mg/dL (0.1-1.2) 06/25/20 07:09 AST 29 units/L (5-40) 06/25/20 07:09 ALT 7 units/L (7-56) 06/25/20 07:09 Alkaline Phosphatase 105 units/L (35-129) 06/25/20 07:09 Troponin T 0.017 ng/mL (0.00-0.029) 06/17/20 13:02 NT-Pro-B Natriuret Pep 635.9 pg/mL (0-900) 06/17/20 11:05 Total Protein 6.6 g/dL (6.3-8.2) 06/25/20 07:09 Albumin 2.4 g/dL (3.9-5) L 06/25/20 07:09 Albumin/Globulin Ratio 0.6 % 06/25/20 07:09 Urine Color Sravanthi (Yellow) 06/24/20 Unknown Urine Turbidity Hazy (Clear) 06/24/20 Unknown Urine pH 5.0 (5.0-7.0) 06/24/20 Unknown Ur Specific Slaughters 1.018 (1.003-1.030) 06/24/20 Unknown Urine Protein <15 mg/dl mg/dL (Negative) 06/24/20 Unknown Urine Glucose (UA) Neg mg/dL (Negative) 06/24/20 Unknown Urine Ketones Neg mg/dL (Negative) 06/24/20 Unknown Urine Blood Neg (Negative) 06/24/20 Unknown Urine Nitrite Neg (Negative) 06/24/20 Unknown Urine Bilirubin Neg (Negative) 06/24/20 Unknown Urine Urobilinogen 4.0 mg/dL (<2.0) 06/24/20 Unknown Ur Leukocyte Esterase Tr (Negative) 06/24/20 Unknown Urine WBC (Auto) 6.0 /HPF (0.0-6.0) 06/24/20 Unknown Urine RBC (Auto) 2.0 /HPF (0.0-6.0) 06/24/20 Unknown U Epithel Cells (Auto) 2.0 /HPF (0-13.0) 06/24/20 Unknown Urine Mucus Few /HPF 06/24/20 Unknown Urine Osmolality 333 Mosm/kg 06/24/20 Unknown Urine Sodium 38 mmol/L 06/24/20 Unknown Coronavirus (PCR) Negative (Negative) 06/22/20 08:54 Little/IV: Voiding Method Urinal Active Medications - Current Medications Current Medications: Generic Name Dose Route Start Last Admin Trade Name Freq PRN Reason Stop Dose Admin Acetaminophen 650 mg 06/17/20 15:20 06/23/20 21:22 Acetaminophen 325 Mg Tab PO 650 mg Q4H PRN Administration Pain MILD(1-3)/Fever >100.5/SHORT Albuterol 2.5 mg 06/17/20 15:20 Albuterol 2.5 Mg/3 Ml Nebu IH Q3HRT PRN Shortness Of Breath Allopurinol 100 mg 06/18/20 10:00 06/28/20 11:33 Allopurinol 100 Mg Tab PO 100 mg DAILY ONELIA Administration Docusate Sodium 100 mg 06/21/20 10:00 06/28/20 11:33 Docusate Sodium 100 Mg Cap PO 100 mg BID ONELIA Administration Megestrol Acetate 400 mg 06/22/20 11:00 06/28/20 11:33 Megestrol 400 Mg/10 Ml Oral Liqd PO 400 mg QDAY ONELIA Administration Midodrine 10 mg 06/24/20 12:00 06/28/20 11:33 Midodrine 5 Mg Tab PO 10 mg TID@0800,1200,1600 ONELIA Administration Multivitamins/Iron 1 each 06/18/20 10:00 06/27/20 09:41 Fe Fumarate/Fa/Mv, Min Comb#15 Cap (Hemocyte Plus) PO 1 each QDAY ONELIA Administration Ondansetron HCl 4 mg 06/17/20 15:20 Ondansetron 4 Mg/2 Ml Inj IV Q8H PRN Nausea And Vomiting Pantoprazole Sodium 40 mg 06/18/20 07:30 06/28/20 11:33 Pantoprazole 40 Mg Tab PO 40 mg QDAC ONELIA Administration Sodium Bicarbonate 650 mg 06/17/20 20:00 06/28/20 11:35 Sodium Bicarbonate 650 Mg Tab PO 650 mg TID ONELIA Administration Sodium Chloride 10 ml 06/17/20 22:00 06/28/20 11:35 Sodium Chloride 0.9% 10 Ml Flush Syringe IV 10 ml BID ONELIA Administration Sodium Chloride 10 ml 06/17/20 15:20 Sodium Chloride 0.9% 10 Ml Flush Syringe IV PRN PRN LINE FLUSH Nutrition/Malnutrition Assess - Dietary Evaluation Nutrition/Malnutrition Findings: Nutrition Notes Start: 06/22/20 11:12 Freq: Status: Active Protocol: Document 06/24/20 09:20 AT (Rec: 06/24/20 09:31 AT [id number]) Co-Sign 06/24/20 09:20 CW Nutrition Notes Initial or Follow up Reassessment Current Diagnosis Acute Kidney Injury,CKD(stage I-IV) Other Pertinent Diagnosis Liver Cirrhosis, Debility, Ascites Current Diet Cardiac diet with mech soft modifications Labs/Tests Na 131 BUN 43 Cr 3.5 Ca 7.8 Pertinent Medications Colace Height 6 ft 3 in Weight 120.5 kg [place] Body Weight (kg) 89.09 BMI 33.2 Weight change and time frame Wt change noted. Pt was on lasix and has ascites. Weight Status Obese Subjective/Other Information Follow up for intakes and ONS tolerance. Per chart, pt has consumed 17% of meals on average over the course of 3 days. Pt reports consuming 100 % of ONS, but does not eat certain foods. Food preferences were recorded. Pt states that he has chewing difficulties due to dentition issues. Pt said he only started receiving mechanical soft meals last night, but will eat more if food is mechanically altered. 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 No Is Patient Ambulatory and/or Out of Bed No REE-([facility]-confined to bed) 2519.160 Kcal/Kg value to use for calculation 17 Approximate Energy Requirements Using 2049 kcal/Kg Calculation Used for Recommendations Kcal/kg Additional Notes PRO needs: 84-158g (0.8-1.5 g/ kg AdBW 105kg for multiple conditions) Fluid needs: 1 mL/kcal or per MD Nutrition Intervention Change Diet Order: Mechanical Soft - Cardiac diet Add Supplement/Snack (indicate name/kcal Nepro BID /protein ) Provides kCal: 850 Provides Protein (gm) 38 Goal #1 Meet at least 75% of EER and protein needs via diet and ONS Anticipated Discharge Needs: Cardiac diet, mechanically altered Follow-Up By: 06/28/20 Additional Comments F/U for improved intakes
[2020-06-28] MEDS: FE FUMARATE/FA/MV, MIN COMB#15 CAP (HEMOCYTE PLUS) PO SCH (13:12)
--- NOTE | 2020-06-28 13:50 | Discharge Summary ---
Providers - Providers Date of Admission: 06/17/20 15:20 Attending physician: DOMONIQUE PASCAL MD 06/17/20 15:21 Physical Therapy Evaluation and Treat [CONS] Routine Comment: Reason For Exam: debility/fall 06/22/20 08:53 Consult to Physician [CONS] Routine Comment: Consulting Provider: JOSLYN GRACE Physician Instructions: Reason For Exam: Acute on CKD 06/22/20 10:14 Consult to Dietitian/Nutrition [CONS] Routine Physician Instructions: Reason For Exam: Reason for Consult: Poor oral intake Primary care physician: QUALITY CONTROL ASSOCIATE Hospitalization Reason for admission: paulo Condition: Stable Hospital course: 59 YO Male with liver cirrhosis complicated by Ascites, chronic kidney disease presents to ED for evaluation. Patient reports "I feel weak and I keep falling". Patient states that he has experienced progressive muscular weakness over the past 3 weeks with worsening symptoms over the same timeframe. Patient knowledges increased bedbound status resulting in worsening weakness. Patient reports that he is no longer able to walk independently. Patient reports multiple falls over the past 1 week. EMS was notified and upon arrival the patient was found to be in distress and subsequently transported to [facility] for further care and evaluation of the aforementioned symptoms. The patient was seen and evaluated in the emergency department. All lab and imaging studies reviewed. The patient was found to have debility complicated by multiple falls. The patient was also found to have acute kidney injury. Patient placed in observation status and admitted to medical floor. Patient denies fever, chills, chest pain, palpitation, productive cough, skin rash, recent ill contacts, or known exposure to COVID-19. Prior admission on 09/17/2015 reviewed. All medication listed at time of admission has been reconciled. Advanced care planning conducted in ED. 06/18. I suspect pt has more chronic renal disease and is likely at baseline. Creatinine was 1.4 in 2017. Check renal US. PT eval. Anticipate d/c based on results 06/19. Physical therapy evaluation recommends subacute rehab. Await case manag ement for placement. Follow-up renal ultrasound 06/20. Physical therapy evaluation recommends subacute rehab. Await case management for placement. Follow-up renal ultrasound 06/21. Renal ultrasound reveals borderline to mildly atrophic left kidney. Unremarkable right kidney. No focal renal lesion or hydronephrosis. Physical therapy recommends subacute rehab. Await placement. 06/22/2020; patient is acute on chronic kidney disease, patient has been follow with Dr. Grace before. Nephrology was consulted and said patient's worsening renal function is due to hypotension due to Lasix and spironolactone. Lasix and spironolactone held for today. PT OT evaluated and recommend subacute rehab. Patient was placed on Megace, nutritional consult, Ensure. Management plan was discussed with the patient and his daughter Anny over the phone and was in agreement with the plan of care. 06/23/2020; patient has still hypotension and I started on midodrine. Kidney function is worsening overnight nephrology is following. Nutrition consult. Patient will be discharged to subacute rehab. Nephrology consult appreciated. 06/24/2020; blood pressure still low and I increase midodrine. We will give him 250 mL of bolus. Renal function is worsening. Nephrology is following. 06/25/2020; patient had ultrasound-guided paracentesis yesterday and drained 12.5 L of straw-colored fluid. Blood pressure this morning is holding. Continue with midodrine. Continue with albumin. Nephrology is following. Morning labs are pending. 06/26/2020; kidney function is improving. Blood pressure is holding. Patient can be discharged to subacute rehab. 06/27/2020; kidney function is improving, potassium is normal. Blood pressure is holding. Discharged to subacute rehab. 06/28/20: Patient seen and examined resting comfortably no new complaints I did discuss with the daughter this morning we are awaiting accepting facility for patient to be transferred. accepted by facility will continue to follow with nephrology and GI outpatient Acute on chronic renal insufficiency Supportive care, continue medical management, encourage free water intake, monitor urine output every shift, Debility Physical therapy consulted, supportive care. Chronic liver disease Supportive care, continue medical management. Ascites Supportive care, outpatient therapeutic paracentesis. Thrombcytopenia Disposition: [id number]/[id number] [facility] CERT Final Discharge Diagnosis (Prints w/discharge instructions): PAULO WITH VASOMOTOR NEPHROPATHY Time spent for discharge: 35 MINS Core Measure Documentation - Palliative Care Palliative Care/ Comfort Measures: Not Applicable - Core Measures Any of the following diagnoses?: none Exam - Physical Exam Narrative exam: Not in cardiopulmonary distress. The patient appeared well nourished and normally developed. Vital signs as documented. Head exam is unremarkable. No scleral icterus . Neck is without jugular venous distension, thyromegaly, or carotid bruits. Lungs are clear to auscultation. Cardiac exam reveals regular rate and Rhythm. Abdominal exam reveals normal bowel sounds, nontender, no organomegaly. Extremities are nonedematous and both femoral and pedal pulses are normal. OPTOMETRIC AIDE: Alert and oriented 3. No focal weakness. - Constitutional Vitals: Temp Pulse Resp BP Pulse Ox 98.8 F 76 16 109/67 100 06/28/20 11:05 06/28/20 11:05 06/28/20 11:05 06/28/20 11:05 06/28/20 11:05 Plan Plan of Treatment: repeat BMP in 3 days Follow up with: PRIMARY CAREMD [Primary Care Provider] - 3-5 Days SANTA DIAL MD [Staff Physician] - 7 Days ELA THRASHER MD [Staff Physician] - 7 Days Prescriptions: Docusate Sodium [Colace CAP] 100 mg PO BID #30 capsule Fe Fumarate/FA/Mv, Min Comb#15 [Hemocyte Plus] 1 each PO QDAY #30 capsule megestroL [Megestrol] 400 mg PO QDAY #100 oral.liqd Midodrine [Proamatine] 10 mg PO TID@0800,1200,1600 #90 tablet
[2020-06-28 15:57] VITALS: BP 120/73
--- NOTE | 2020-06-28 16:08 | Progress Note ---
Assessment and Plan # Acute on Chronic Kidney Injury: baseline creatinine around 1.8-2.0. Creatinine was stable but increased to 2.9->3.3->3.5, now improved, may be related to pre-renal injury in setting of liver disease and diuretic use (on lasix, spironolactone) with hypotension. Hepatorenal syndrome also a possibility; also may have increased abdominal pressure from ascites, now s/p paracentesis - continue to hold diuretics for now as he remains fairly euvolemic - agree with midodrine for low BP, dose increased, continue on discharge - maintain MAP>65 as able - avoid nephrotoxins - renal ultrasound reviewed, atrophic left kidney noted, no acute obstruction - renally dose meds - continue NaHCO3 - urinalysis reviewed, no hematuria/proteinuria concerning for glomerular injury - no immediate indications for biopsy or renal replacement therapy - strict I/O if able # Hyponatremia: likely chronic due to liver disease (reviewed outpatient labs which shows baseline sodium around 132), stable # Weakness: chronic, appreciate PT input # Chronic Liver Disease: hold diuretics for now but if renal function remains stable can start them back soon provided bp permits # Ascites: restart diuretics once renal function more stable + BP stable, receiv es outpatient therapeutic paracentesis. S/p para 5/6 # Anemia in Chronic Illness: monitor, prbc transfusion prn Subjective Date of service: 06/28/20 Principal diagnosis: PAULO Interval history: Tolerating oral diet Notes adequate urine output Objective - Exam Narrative Exam: General: No acute distress HEENT: Oral mucosa moist Neck: Supple, no JVD Chest: Clear to auscultation bilaterally Heart: RRR, S1 and S2, no pericardial rub Abdomen: Soft, nontender, no renal bruit Extremity: No peripheral cyanosis, bilateral lower extremity edema noted Neurological: Alert, awake, no asterixis Dermatology: No skin rash Psych: No agitation Musculoskeletal: No joint effusion - Vital Signs Vital signs: Vital Signs - 12hr 06/28/20 06/28/20 06/28/20 05:15 11:05 15:46 Temperature 98.4 F 98.8 F 99.4 F Pulse Rate 79 76 75 Respiratory 18 16 16 Rate Blood Pressure 109/67 120/73 Blood Pressure 113/65 [Left] O2 Sat by Pulse 98 100 100 Oximetry - Lab 06/25/20 07:09 06/28/20 05:48 Most recent lab results Calcium 8.8 mg/dL (8.4-10.2) 06/28/20 05:48 Magnesium 1.50 mg/dL (1.7-2.3) L 06/17/20 11:05 Urine Sodium 38 mmol/L 06/24/20 Unknown Medications & Allergies - Medications Allergies/Adverse Reactions: Allergies No Known Allergies Allergy (Verified 06/06/14 15:35) Home Medications: Home Medications Medication Instructions Recorded Confirmed Last Taken Type Pantoprazole [Protonix TAB] 40 mg PO QDAY #30 tablet 09/21/15 06/18/20 06/08/20 Rx Sodium Bicarbonate 650 mg PO TID #90 tablet 09/21/15 06/18/20 06/08/20 Rx Spironolactone [Aldactone] 50 mg PO BID 04/10/16 06/18/20 06/08/20 History allopurinoL [Zyloprim] 100 mg PO DAILY PRN 02/03/19 06/18/20 01/08/19 History 100 mg Iron Fum,Ps/Folic/Bcomp,C No.9 1 each PO DAILY 06/09/20 06/18/20 06/08/20 History [Integra Plus Capsule] Docusate Sodium [Colace CAP] 100 mg PO BID #30 capsule 06/28/20 Unknown Rx Fe Fumarate/FA/Mv, Min Comb#15 1 each PO QDAY #30 capsule 06/28/20 Unknown Rx [Hemocyte Plus] Furosemide [Lasix TAB] 20 mg PO QDAY #30 tab 06/28/20 06/18/20 06/08/20 Rx Midodrine [Proamatine] 10 mg PO TID@0800,1200,1600 #90 06/28/20 Unknown Rx tablet megestroL [Megestrol] 400 mg PO QDAY #100 oral.liqd 06/28/20 Unknown Rx Active Medications: Generic Name Dose Route Start Last Admin Trade Name Freq PRN Reason Stop Dose Admin Acetaminophen 650 mg 06/17/20 15:20 06/23/20 21:22 Acetaminophen 325 Mg Tab PO 650 mg Q4H PRN Administration Pain MILD(1-3)/Fever >100.5/SHORT Albuterol 2.5 mg 06/17/20 15:20 Albuterol 2.5 Mg/3 Ml Nebu IH Q3HRT PRN Shortness Of Breath Allopurinol 100 mg 06/18/20 10:00 06/28/20 11:33 Allopurinol 100 Mg Tab PO 100 mg DAILY ONELIA Administration Docusate Sodium 100 mg 06/21/20 10:00 06/28/20 11:33 Docusate Sodium 100 Mg Cap PO 100 mg BID ONELIA Administration Megestrol Acetate 400 mg 06/22/20 11:00 06/28/20 11:33 Megestrol 400 Mg/10 Ml Oral Liqd PO 400 mg QDAY ONELIA Administration Midodrine 10 mg 06/24/20 12:00 06/28/20 11:33 Midodrine 5 Mg Tab PO 10 mg TID@0800,1200,1600 ONELIA Administration Multivitamins/Iron 1 each 06/18/20 10:00 06/28/20 13:12 Fe Fumarate/Fa/Mv, Min Comb#15 Cap (Hemocyte Plus) PO Not Given QDAY ONELIA Ondansetron HCl 4 mg 06/17/20 15:20 Ondansetron 4 Mg/2 Ml Inj IV Q8H PRN Nausea And Vomiting Pantoprazole Sodium 40 mg 06/18/20 07:30 06/28/20 11:33 Pantoprazole 40 Mg Tab PO 40 mg QDAC ONELIA Administration Sodium Bicarbonate 650 mg 06/17/20 20:00 06/28/20 11:35 Sodium Bicarbonate 650 Mg Tab PO 650 mg TID ONELIA Administration Sodium Chloride 10 ml 06/17/20 22:00 06/28/20 11:35 Sodium Chloride 0.9% 10 Ml Flush Syringe IV 10 ml BID ONELIA Administration Sodium Chloride 10 ml 06/17/20 15:20 Sodium Chloride 0.9% 10 Ml Flush Syringe IV PRN PRN LINE FLUSH
== END 2020-06-28 17:30 | DRG 683 ==
LOC: ED 09:58 → OBSVTOIN 15:20 → 3A 15:20
PROVIDERS: ADMIT Internal Medicine; ATTEND Internal Medicine
PROC: 0W9G3ZZ Drainage of Peritoneal Cavity, Percutaneous Approach (ICD-10-PCS; principal; 2020-06-24)
DX: N17.0 Acute kidney failure with tubular necrosis (principal); R18.8 Other ascites; E87.1 Hypo-osmolality and hyponatremia; Z20.822 Contact with and (suspected) exposure to COVID-19; R53.81 Other malaise; E86.9 Volume depletion, unspecified; K76.9 Liver disease, unspecified; E11.22 Type 2 diabetes mellitus with diabetic chronic kidney disease; M19.90 Unspecified osteoarthritis, unspecified site; I12.9 Hypertensive chronic kidney disease with stage 1 through stage 4 chronic kidney disease, or unspecified chronic kidney disease; K74.60 Unspecified cirrhosis of liver; I95.9 Hypotension, unspecified; E88.09 Other disorders of plasma-protein metabolism, not elsewhere classified; D63.8 Anemia in other chronic diseases classified elsewhere; D69.6 Thrombocytopenia, unspecified; N18.9 Chronic kidney disease, unspecified; Z79.899 Other long term (current) drug therapy; Z79.891 Long term (current) use of opiate analgesic; Z79.01 Long term (current) use of anticoagulants; Z82.49 Family history of ischemic heart disease and other diseases of the circulatory system
CPT/HCPCS: 36415; 49083; 70450; 71046; 76770; 80048; 80053; 81001; 82040; 82962; 83735; 83880; 83935; 84300; 84484; 85025; 85610; 85730; 93005; 94640; 96365; 96375; G0378; J1885; J7050; P9047; U0003